=== PATIENT | female | born 1930 | race Caucasian/White ===

== ENCOUNTER 2017-12-27 05:08 | Emergency (ER) | payer OTHER ==
[2017-12-27 08:04] LABS: Absolute Lymphocytes (CBC) 0.6 K/uL (0.7-4.9); Absolute Neutrophil 9.9 K/uL (1.8-8.0); Basophils % 0.2 % (0-1.3); Hematocrit 38.8 % (36.0-45.0); Lymphocytes % 5.5 % (15.3-44.8); MCH 32.5 pg (27.0-35.0); MCV 96.1 fL (80-100); MPV 8.9 fL (7.6-11.3); Monocytes % 8.8 % (3.3-12.3); RBC Red Blood Cell Count 4.04 M/uL (3.86-4.86)
[2017-12-27 08:09] LABS: Potassium 3.5 mEq/L (3.6-5.0)
[2017-12-27 08:15] LABS: Albumin 4.1 g/dL (3.2-5.5); Bilirubin Direct 0.1 mg/dL (0-0.2); Bilirubin Total 0.9 mg/dL (0.3-1.2); Protein, Total 6.7 g/dL (6.0-8.3)
[2017-12-27 08:16] LABS: CKMB Creatine Kinase MB 2.9 ng/ml (0.3-4.0)
[2017-12-27 08:22] LABS: Protime INR 1.01
[2017-12-27 08:33] LABS: Urine Bacteria NONE SEEN /HPF (<20); Urine Culture Reflex Order NOT NEEDED; Urine RBC NONE SEEN /HPF (NONE SEEN)
[2017-12-27] MEDS ORDERED: CEFTRIAXONE/SWI 1gm 1 GM/10 ML SYR ONE (08:41)
[2017-12-27] MEDS ORDERED: AZITHROMYCIN 250 MG TAB ONE (08:42)
--- NOTE | 2017-12-27 09:01 | RAD REPORT ---
EXAM DESCRIPTION: Nida Single View12/27/2017 7:35 am CLINICAL HISTORY: Chest pain COMPARISON: 2016 FINDINGS: 7 centimeter opacity is present within the mid to lower right lung. Left lung appears yamila r. The heart is mildly enlarged. IMPRESSION: Right lung opacity consistent with pneumonia. This should be followed until it is clear to help exclude a post obstructive process/underlying mass
--- NOTE | 2017-12-27 09:15 | EDPHYS ---
Physician Documentation [facility] Name: Danica Murdock Age: 87 yrs Sex: Female : 1930 Arrival Date: 12/27/2017 Time: 05:14 Bed 5 Private MD: Ken Davis ED Physician Shawn Peraza HPI: 12/27 06:50 This 87 yrs old Female presents to ER via Wheelchair with complaints of cp Fever, CHILLS. 06:50 The patient reports fever, not measured (subjective). Onset: The symptoms/episode cp began/occurred this morning. Associated signs and symptoms: Pertinent positives: cough, body aches, Pertinent negatives: diarrhea, headache, runny nose, vomiting. Severity of symptoms: in the emergency department the symptoms are unchanged despite home interventions. Historical: - Allergies: 05:54 Beta-Blockers (Beta-Adrenergic Blocking Agts); mg2 05:54 Latex, Natural Rubber; mg2 05:54 Clonidine; mg2 05:54 Levaquin; mg2 05:54 Plavix; mg2 05:54 Demerol; mg2 - Home Meds: 05:54 hydrochlorothiazide 50 mg Oral tab 1 tab 2 times per day [Active]; mg2 - PMHx: 05:54 heart attack; Irregular Hear Rate; stroke; Hypothyroidism; ADD/ADHD; mg2 - Immunization history:: Adult Immunizations unknown, Flu vaccine is not up to date. - Social history:: Smoking status: Patient/guardian denies using tobacco, Patient/guardian denies using alcohol, street drugs. - Ebola Screening: : No symptoms or risks identified at this time. ROS: 07:00 Constitutional: Positive for body aches, chills, malaise, Negative for fever, poor PO cp intake. 07:00 Eyes: Negative for injury, pain, redness, and discharge. cp 07:00 ENT: Negative for drainage from ear(s), ear pain, sore throat, difficulty swallowing, difficulty handling secretions. 07:00 Neck: Negative for pain with movement, pain at rest, stiffness, swollen nodes, tenderness. 07:00 Cardiovascular: Negative for chest pain, edema, palpitations. 07:00 Respiratory: Positive for cough, with yellow sputum, Negative for hemoptysis, wheezing. 07:00 Abdomen/GI: Negative for abdominal pain, vomiting, diarrhea, constipation. 07:00 Back: Negative for injury or acute deformity, radiated pain. 07:00 : Negative for urinary symptoms. 07:00 Skin: Negative for cellulitis, rash. 07:00 Neuro: Positive for general weakness, Negative for altered mental status, headache, syncope, near syncope. 07:00 All other systems are negative. Exam: 07:02 Head/Face: Normocephalic, atraumatic. Eyes: Pupils equal round and reactive to light, cp extra-ocular motions intact. Lids and lashes normal. Conjunctiva and sclera are non-icteric and not injected. Cornea within normal limits. Periorbital areas with no swelling, redness, or edema. ENT: Nares patent. No nasal discharge, no septal abnormalities noted. Tympanic membranes are normal and external auditory canals are clear. Oropharynx with no redness, swelling, or masses, exudates, or evidence of obstruction, uvula midline. Mucous membranes moist. Neck: Trachea midline, no thyromegaly or masses palpated, and no cervical lymphadenopathy. Supple, full range of motion without nuchal rigidity, or vertebral point tenderness. No Meningismus. Chest/axilla: Normal chest wall appearance and motion. Nontender with no deformity. No lesions are appreciated. 07:02 Constitutional: The patient appears in no acute distress, alert, awake, non-diaphoretic, non-toxic, well developed, frail. 07:02 Cardiovascular: Rate: normal, Rhythm: regular, Pulses: Pulses are 2+ in right radial artery and left radial artery. Edema: is not appreciated, JVD: is not appreciated. 07:02 Respiratory: the patient does not display signs of respiratory distress, Respirations: labored breathing, is not present, intercostal retractions, are absent, splinting, is not noted, tachypnea, is not appreciated, Breath sounds: bronchial sounds, that are mild, are heard in the right posterior middle lobe and right posterior lower lobe, decreased breath sounds, that are mild, are located in both bases, stridor, is not appreciated, wheezing: is not appreciated. 07:02 Abdomen/GI: Inspection: abdomen appears normal, Bowel sounds: active, all quadrants, Palpation: abdomen is soft and non-tender, in all quadrants. 07:02 Back: pain, is absent, ROM is normal, CVA tenderness, is absent. 07:02 Skin: cellulitis, is not appreciated, no rash present. 07:02 Neuro: Orientation: to person, place \T\ time. Mentation: lucid, able to follow commands, Cerebellar function: is grossly normal, Motor: moves all fours, general weakness w/o focal deficits, Sensation: no obvious gross deficits. 07:40 ECG was reviewed by the Attending Physician. cp Vital Signs: 05:54 BP 158 / 84; Pulse 73; Resp 20; Temp 99(O); Pulse Ox 95% ; Weight 56.7 kg; Height 5 ft. mg2 5 in. (165.10 cm); Pain 0/10; 07:00 BP 135 / 72; Pulse 67; Resp 17; Pulse Ox 96% on R/A; hb 08:51 BP 146 / 72; Pulse 75; Resp 18; Pulse Ox 95% ; jl7 05:54 Body Mass Index 20.80 (56.70 kg, 165.10 cm) mg2 MDM: 06:40 Patient medically screened. cp 08:53 Data reviewed: vital signs, nurses notes, lab test result(s), EKG, radiologic studies, cp plain films. Physician consultation: Ale Lynn MD was called at 08:45, was contacted at 08:54, regarding admission, to the telemetry unit. patient's condition, in the emergency department to see patient at 08:54. ED course: VSS. Patient evaluated by DR Lynn who reports patient stable for discharge with immediate outpatient f/u with DR Gallo for chronic a-fib. Wants Zithromax continued as outpatient treatment for pneumonia. 09:08 Physician consultation: Ale Lynn MD was called at 09:08, was contacted at 09:08, cp regarding admission, patient reports general weakness and while ambulating in ED, observed using wall to steady herself. Oxygen sats maintained above 90% while ambulating while on RA. 09:10 ED course: VSS. Dr Lynn recommend outpatient treatment for pneumonia, immediate f/u cp with DR Gallo as planned as patient does not meet inpatient criteria for treatment. 12/27 06:49 Order name: Urine Microscopic Only; Complete Time: 08:37 cp 12/27 06:49 Order name: Basic Metabolic Panel; Complete Time: 08:22 cp 12/27 08:22 Interpretation: Normal except: K 3.5; BUN 27; GFR 81. cp 12/27 06:49 Order name: Blood Culture Adult (2) cp 06/ 06:49 Order name: BNP; Complete Time: 08:22 cp 06/06 08:22 Interpretation: Abnormal: BNP 653. cp 06/ 06:49 Order name: CBC with Diff cp 06/ 08:23 Interpretation: Normal except: WBC 11.6; RUFINA% 85.5; LYM% 5.5; NEUT A 9.9; LYMA 0.6. cp 06/06 06:49 Order name: Ckmb; Complete Time: 08:22 cp 06/ 06:49 Order name: CPK; Complete Time: 08:22 cp 06/ 06:49 Order name: Lactate; Complete Time: 08:22 cp 06/06 06:49 Order name: LFT's; Complete Time: 08:22 cp 06/ 09:07 Interpretation: Normal except: SGOT 46. cp 06/ 06:49 Order name: Procalcitonin; Complete Time: 08:37 cp 06/ 06:49 Order name: Protime (+inr); Complete Time: 08:37 cp 06/ 06:49 Order name: Ptt, Activated; Complete Time: 08:37 cp 06/ 06:49 Order name: Troponin (emerg Dept Use Only); Complete Time: 08:22 cp 06/ 06:49 Order name: Influenza Screen (a \T\ B); Complete Time: 08:22 cp 06/06 06:49 Order name: Cath; Complete Time: 08:55 cp 06/06 06:49 Order name: Chest Single View XRAY; Complete Time: 09:06 cp 06/ 06:49 Order name: Accucheck; Complete Time: 07:26 cp 06/06 06:49 Order name: Cardiac monitoring; Complete Time: 07:44 cp 06/ 06:49 Order name: EKG - Nurse/Tech; Complete Time: 07:44 cp 06/ 06:49 Order name: IV Saline Lock - Large Bore; Complete Time: 07:44 cp / 06:49 Order name: Labs collected and sent; Complete Time: 07:44 cp /06 06:49 Order name: O2 Per Protocol; Complete Time: 07:45 cp / 06:49 Order name: O2 Sat Monitoring; Complete Time: 07:45 cp 06/06 06:49 Order name: Urine Dipstick-Ancillary (obtain specimen); Complete Time: 08:13 cp 12/27 08:07 Order name: CBC Smear Scan EDMT 12/27 08:14 Order name: Urine Dipstick--Ancillary (enter results) em1 12/27 09:13 Order name: EKG Electrocardiogram EDMS EC:40 Rate is 68 beats/min. Rhythm is irregular. QRS interval is prolonged at 110 msec. QT cp interval is normal. Interpreted by me. Reviewed by me. Administered Medications: 08:26 CANCELLED (Physician Discretion): Zithromax 500 mg IVPB once over 1 hrs; mix in 250 mL cp NS 08:48 Drug: Rocephin - (cefTRIAXone) 1 grams Route: IVPB; Infused Over: 30 mins; Site: right jl7 forearm; 08:50 Follow up: Response: No adverse reaction; IV Status: Completed infusion jl 08:48 Drug: Zithromax 500 mg Route: PO; jl7 Point of Care Testing: Blood Glucose: 07:26 Blood Glucose: 104 mg/dL; dh3 Ranges: Critical Glucose Levels:Adult <50 mg/dl or >400 mg/dl <40 mg/dl or >180 mg/dl Disposition: 16:17 Co-signature as Attending Physician, Shawn Peraza MD. rn Disposition: 12/27/17 09:15 Discharged to Home. Impression: Pneumonia due to other specified bacteria, Chronic atrial fibrillation, Weakness - General. - Condition is Stable. - Discharge Instructions: Pneumonia, Adult, Weakness, Aspirin and Your Heart, Atrial Fibrillation, Shvs-gt-Scpa. - Prescriptions for Zithromax Z- Juan 250 mg Oral Tablet - take 1 tablet by ORAL route as directed for 5 days Day 1 - take two (2) tablets one time. Day 2, 3, 4 , 5 take one (1) tablet once daily.; 6 tablet. - Medication Reconciliation Form, Thank You Letter, Antibiotic Education, Prescription Opioid Use form. - Follow up: Oleg Gallo MD; When: Upon discharge from the Emergency Department; Reason: chronic atrial fibrillation. Follow up: Ken Davis MD; When: 1 - 2 days; Reason: pneumonia. - Problem is new. - Symptoms have improved. Signatures: Dispatcher [employer] [facility] Shawn Peraza MD MD rn Smirch, Shelby, RN RN ss Page Prince, PA PA cp Eric Coronado RN RN jl7 Suraj Dyer, RN RN mg2 Corrections: (The following items were deleted from the chart) 08:23 08:22 Normal except: WBC 11.6; RUFINA% 85.5; LYM% 5.5; NEUT A 9.9. cp cp 08:26 08:25 Zithromax 500 mg IVPB once over 1 hrs; mix in 250 mL NS ordered. cp cp 09:42 09:15 12/27/2017 09:15 Discharged to Home. Impression: Pneumonia due to other specified ss bacteria; Chronic atrial fibrillation; Weakness - General. Condition is Stable. Forms are Medication Reconciliation Form, Thank You Letter, Antibiotic Education, Prescription Opioid Use. Follow up: Oleg Gallo; When: Upon discharge from the Emergency Department; Reason: chronic atrial fibrillation. Follow up: Ken Davis; When: 1 - 2 days; Reason: pneumonia. Problem is new. Symptoms have improved. cp
--- NOTE | 2017-12-27 09:15 | ER ---
Nurse's Notes [facility] Name: Danica Murdock Age: 87 yrs Sex: Female : 1930 Arrival Date: 12/27/2017 Time: 05:14 Bed 5 Private MD: Ken Davis Diagnosis: Pneumonia due to other specified bacteria;Chronic atrial fibrillation;Weakness-General Presentation: 12/27 05:50 Presenting complaint: Patient states: chills, cough, shortness of breath and probable mg2 fever upon waking up this morning. denies chest pain. Transition of care: patient was not received from another setting of care. Onset of symptoms was December 27, 2017. Risk Assessment: Do you want to hurt yourself or someone else? Patient reports no desire to harm self or others. Initial Sepsis Screen: Does the patient meet any 2 criteria? No. Patient's initial sepsis screen is negative. Does the patient have a suspected source of infection? No. Patient's initial sepsis screen is negative. Care prior to arrival: None. 05:50 Method Of Arrival: Wheelchair mg2 05:50 Acuity: BRANDIE 3 mg2 Historical: - Allergies: 05:54 Beta-Blockers (Beta-Adrenergic Blocking Agts); mg2 05:54 Latex, Natural Rubber; mg2 05:54 Clonidine; mg2 05:54 Levaquin; mg2 05:54 Plavix; mg2 05:54 Demerol; mg2 - Home Meds: 05:54 hydrochlorothiazide 50 mg Oral tab 1 tab 2 times per day [Active]; mg2 - PMHx: 05:54 heart attack; Irregular Hear Rate; stroke; Hypothyroidism; ADD/ADHD; mg2 - Immunization history:: Adult Immunizations unknown, Flu vaccine is not up to date. - Social history:: Smoking status: Patient/guardian denies using tobacco, Patient/guardian denies using alcohol, street drugs. - Ebola Screening: : No symptoms or risks identified at this time. Screenin:25 Abuse screen: Denies threats or abuse. Denies injuries from another. Nutritional mg2 screening: No deficits noted. Tuberculosis screening: No symptoms or risk factors identified. Fall Risk Gait- Weak (10 pts.). Assessment: 06:20 General: Appears in no apparent distress. comfortable. Pain: Denies pain. Neuro: Level mg2 of Consciousness is awake, alert, obeys commands, Oriented to person, place, time, situation. Cardiovascular: Capillary refill < 3 seconds Patient's skin is warm and dry. Respiratory: Reports shortness of breath cough that is non-productive. GI: No signs and/or symptoms were reported involving the gastrointestinal system. : No signs and/or symptoms were reported regarding the genitourinary system. Derm: Skin is intact, Skin is pink, warm \T\ dry. normal. Musculoskeletal: No signs and/or symptoms reported regarding the musculoskeletal system. 07:15 Reassessment: Patient and/or family updated on plan of care and expected duration. Pain jl7 level reassessed. Patient is alert, oriented x 3, equal unlabored respirations, skin warm/dry/pink. Patient denies pain at this time. Respiratory: Reports shortness of breath since last night cough that is non-productive, Airway is patent Respiratory effort is even, unlabored, Respiratory pattern is regular, symmetrical, Breath sounds are coarse bilaterally. 08:45 Reassessment: Dr. Lynn at bedside. jl7 Vital Signs: 05:54 BP 158 / 84; Pulse 73; Resp 20; Temp 99(O); Pulse Ox 95% ; Weight 56.7 kg; Height 5 ft. mg2 5 in. (165.10 cm); Pain 0/10; 07:00 BP 135 / 72; Pulse 67; Resp 17; Pulse Ox 96% on R/A; hb 08:51 BP 146 / 72; Pulse 75; Resp 18; Pulse Ox 95% ; jl7 05:54 Body Mass Index 20.80 (56.70 kg, 165.10 cm) mg2 ED Course: 05:14 Patient arrived in ED. es 05:14 Ken Davis MD is Private Physician. es 05:50 Suraj Dyer, AISHA is Primary Nurse. mg2 05:52 Triage completed. mg2 05:55 Arm band placed on. mg2 06:40 Prince Tracy PA is PHCP. cp 06:40 William Guan MD is Attending Physician. cp 07:15 Patient has correct armband on for positive identification. Placed in gown. Bed in low jl7 position. Call light in reach. Side rails up X 1. tube machine operator on. Pulse ox on. NIBP on. Warm blanket given. 07:15 Initial lab(s) drawn, by me, sent to lab. First set of blood cultures drawn by me. jl7 Inserted saline lock: 22 gauge in right forearm, using aseptic technique. Blood collected. 07:21 Chest Single View XRAY In Process Unspecified. EDMS 07:30 Shawn Peraza MD is Attending Physician. cp 07:32 Second set of blood cultures drawn by me, Flu and/or RSV swab sent to lab. jl7 08:12 Urine collected: straight cath specimen, clear. Straight cath inserted, using sterile jl7 technique, 16 Fr. Specimen obtained. Returned clear yellow urine. Patient tolerated well. 08:13 Primary Nurse role handed off by Suraj Dyer RN jl7 08:13 Eric Coronado, AISHA is Primary Nurse. jl7 09:13 Oleg Gallo MD is Referral Physician. cp 09:13 EKG done, by medical laboratory technicians. reviewed by Prince CROW. tc 09:14 Ken Davis MD is Referral Physician. cp 09:42 No provider procedures requiring assistance completed. IV discontinued, intact, jl7 bleeding controlled, No redness/swelling at site. Pressure dressing applied. Administered Medications: 08:26 CANCELLED (Physician Discretion): Zithromax 500 mg IVPB once over 1 hrs; mix in 250 mL cp NS 08:48 Drug: Rocephin - (cefTRIAXone) 1 grams Route: IVPB; Infused Over: 30 mins; Site: right jl7 forearm; 08:50 Follow up: Response: No adverse reaction; IV Status: Completed infusion jl7 08:48 Drug: Zithromax 500 mg Route: PO; jl7 Point of Care Testing: Blood Glucose: 07:26 Blood Glucose: 104 mg/dL; dh3 Ranges: Outcome: 09:15 Discharge ordered by . cp 09:42 Patient left the ED. ss 09:42 Discharged to home via wheelchair, with family. jl7 09:42 Condition: stable 09:42 Discharge instructions given to patient, family, Instructed on discharge instructions, follow up and referral plans. medication usage, Demonstrated understanding of instructions, follow-up care, medications, Prescriptions given X 1. Signatures: Dispatcher [employer] [facility] Breann Bell Shelby, RN RN Xuan Turner, vp security EKG Ttc Prince Tracy PA PA cp Anna Maldonado RN RN Eric Coronado RN RN jl7 Christina Mohan dh3 Suraj Dyer, RN RN mg2
[2017-12-27 09:37] LABS: Blood Morphology Comment NOT SEEN (NOT SEEN); Platelet Estimate ADEQ; Urine White Blood Cell Casts OK
[2017-12-27 09:47] VITALS: TEMP 99
[2017-12-27 09:49] VITALS: BP 146/72; O2SAT 95
--- NOTE | 2017-12-27 13:37 | EKG ---
Test Date: 2017-12-27 Test Time: 07:34:48 Powder Shoveler: MARINA MEASUREMENT RESULTS: Intervals: Rate: 68 KS: QRSD: 110 QT: 360 QTc: 382 [place]: P: KS: QRS: 72 T: -64 INTERPRETIVE STATEMENTS: Atrial fibrillation ST & T wave abnormality, consider inferolateral ischemia or digitalis effect Abnormal ECG Compared to ECG 06/27/2016 15:44:03 ST (T wave) deviation now present Possible ischemia now present Electronically Signed On 12-27-17 13:36:25 CDT by Alfonso Durán
[2017-12-27 16:45] LABS: Urine Blood NEGATIVE (NEG); Urine Glucose NEGATIVE (NEG); Urine Protein NEGATIVE (NEG)
== END 2017-12-27 09:42 | disposition home or self-care (01) ==
LOC: ER 05:08
DX: J15.8 Pneumonia due to other specified bacteria (principal); I48.2 Chronic atrial fibrillation; E03.9 Hypothyroidism, unspecified; Z86.73 Personal history of transient ischemic attack (TIA), and cerebral infarction without residual deficits; Z88.1 Allergy status to other antibiotic agents; Z88.5 Allergy status to narcotic agent; Z88.8 Allergy status to other drugs, medicaments and biological substances; Z91.040 Latex allergy status
CPT/HCPCS: 36415; 51702; 71045; 80048; 80076; 82550; 82553; 82962; 83605; 83880; 84145; 84484; 85025; 85610; 85730; 87040 ×2; 87804 ×2; 93005; 96374; 99285; J0696; 81003; 81015

== ENCOUNTER 2020-05-14 12:36 | Emergency (ER) | payer OTHER ==
[2020-05-14] MEDS ORDERED: TRAMADOL HCL 50 MG TAB ONE (14:11)
--- OUTSIDE RECORDS SUMMARY | 2020-05-14 14:17 | XMS REPORT | Clinical Summary ---
:1930 Author Organization [facility] Address [address] [place] [address] Care Team Providers Name Role Phone Pcp Primary Care Provider Unavailable Allergies Active Allergy Reactions Severity Noted Date Comments Clonidine Other (See Comments) Medium 04/02/2019 Blister ed rash, racing heart, increased BP Latex Other (See Comments) Low 04/02/2019 Allergy skin test Levofloxacin Other (See Comments) High 04/02/2019 Severe headache, stomach ache, nausea Clopidogrel Nausea Only High 04/02/2019 Irregular heart beat, nausea, tingling Medications Medication Sig Dispensed Refills Start Date End Date Status apixaban (ELIQUIS) 2.5 1 tablet (2.5 0 04/09/2019 Active mg Tab tablet mg total) by Feeding Tube route 2 (two) times daily. acetaminophen 2 tablets (650 30 tablet 0 04/09/2019 04/03/2020 (TYLENOL) 325 MG mg total) by tablet G-tube route every 6 (six) hours as needed for Pain for up to 360 days. lisinopril 1 tablet (20 mg 0 04/10/2019 04/09/2020 E xpired (PRINIVIL,ZESTRIL) 20 total) by MG tablet G-tube route daily. aspirin 81 MG chewable 1 tablet (81 mg 0 04/10/2019 04/09/2020 tablet total) by G-tube route daily. atorvastatin (LIPITOR) 1 tablet (80 mg 0 04/09/2019 04/08/2020 80 MG tablet total) by G-tube route nightly. senna-docusate 1 tablet by 0 04/09/2019 04/08/2020 E xpired (SENOKOT S) 8.6-50 mg G-tube route 2 per tablet (two) times daily as needed for Constipation. metoprolol (LOPRESSOR) Take 0.5 0 04/09/20192019 25 MG tablet tablets (12.5 mg total) by mouth 2 (two) times daily. Active Problems Problem Noted Date Chronic atrial fibrillation 04/09/2019 Essential hypertension 04/09/2019 Chronic systolic heart failure 04/09/2019 Altered mental status, unspecified altered mental stat us type 04/02/2019 Arterial ischemic stroke, MCA (middle cerebral artery) , right, acute 04/01/2019 Social History Tobacco Use Types Packs/Day Years Used Date Never Smoker Smokeless Tobacco: Never Used Sex Assigned at Date Recorded Not on file Last Filed Vital Signs Not on file Plan of Treatment Not on file Results Not on fileafter 05/14/2019 Insurance Payer Benefit Plan / Subscriber ID Effective Dates Phone Addre ss Type Group MEDICARE MEDICARE A B [id number] 1996-Present Medicare [facility] GENERIC MEDICARE [id number] 2018-Present Medigap SUPPLEMENT/RORY SUPPLEMENT VIDUAL (Home) [address] [place] [id number] Advance Directives For more information, please contact: [phone] Code Status Date Activated Date Inactivated Comments Full Code 04/02/2019 1:31 AM 04/09/2019 8:04 PM This code status was determined by: Patient
--- OUTSIDE RECORDS SUMMARY | 2020-05-14 14:19 | XMS REPORT | Continuity of Care Document ---
:1930 Author Organization [facility] t Address [address] [place] [address] Dr. Del[address]. [address] [place] [address] Care Team Providers Name Role Phone Pcp Primary Care Physician Unavailable Nichole LEONARD Attending Clinician Gilberto Mortensen MD Attending Clinician Thais REBOLLEDO S Attending Clinician Flo REBOLLEDO Attending Clinician Doctor Unassigned, Name Attending Clinician Unavailable Rosalino LEONARD Attending Clinician ALEXX HENRY Attending Clinician Unavailable Flo REBOLLEDO Admitting Clinician LAURENCE AGUILLON Admitting Clinician Unavail able Problems Condition Condition Condition Status Onset Resolution Last Treating Co mments Source Name Details Category Date Date Treatment Clinician Date Chronic Chronic Disease Active [facility]- [facility]ati fibrillati [facility]:00: Me dical on on 00 Center Essential Essential Disease Active 2019- [facility] hypertensi hypertensi 04-09 Caren kes - on on 00:00: Medical 00 Center 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, stroke, 00:00: Medical MCA MCA 00 Center (middle (middle cerebral cerebral artery), artery), right, right, acute acute Allergies, Adverse Reactions, Alerts Allergy Allergy Status Severity Reaction(s) Onset Inactive Treating Comm ents Source Name Type Date Date Clinician Clonidin Drug Active Other (See Blistered [facility] e Allergy Comments) 9- rash, [facility] - 00:00: racing Medical 00 heart, Center increased BP Latex Propensi Active Other (See Allergy [facility] ty to Comments) 9- skin test [facility] - adverse 00:00: Medical reaction 00 Center s Levoflox Propensi Active Other (See Severe [facility] acin ty to Comments) 9- headache, [facility] - adverse 00:00: stomach Medical reaction 00 ache, Center s nausea Clopidog Propensi Active Nausea Only Irregula r [facility] rel ty to 04-02 heart [facility] - adverse 00:00: beat, Medical reaction 00 nausea, [facility] s tingling Social History Social Habit Start Date Stop Date Quantity Comments Source Sex Assigned At [facility] Tobacco use and 2019-04-08 2019-04-08 Never used [facility] - exposure 00:00:00 00:00:00 [facility] Smoking Status Start Date Stop Date Source Never smoker [facility] Medications Ordered Filled Start Stop Current Ordering Indication Dosage Frequency Signature Comments Components Source Medication Medication Date Date Medication? Clinician (SIG) Name Name lisinopril 2020- No 20mg QD [address] (PRINIVIL,Z 04-10 (20 mg [facility] - ESTRIL) 20 00:00: 23:59 total) by M edical MG tablet 00 :00 [facility]-tube Center route daily. aspirin 81 2020- No 81mg QD [address] MG chewable 04-10 (81 mg [facility] - tablet 00:00: 23:59 total) by Medic al 00 :00 [facility]-tube Center route daily. apixaban Yes 2.5mg Q.5D [address] [facility] (ELIQUIS) 04-09 (2.5 mg [facility] - 2.5 mg Tab 00:00: total) by Me dical tablet 00 [facility] Tube route 2 (two) times daily. atorvastati 2019- No 80mg QD [address] n (LIPITOR) 04-09 (80 mg [facility] - 80 MG 00:00: 23:59 total) by Medica l tablet 00 :00 G-tube Center route nightly. senna-docus 2019- No 1{tbl} [address] [facility] ate 04-09 by G-tube [facility] - (SENOKOT S) 00:00: 23:59 route 2 Me dical 8.6-50 mg 00 :00 (two) Center per tablet times daily as needed for Constipati on. metoprolol 2019- No 12.5mg Q.5D Take 0.[address] [facility] (LOPRESSOR) 04-09 tablets [facility] - 25 MG 00:00: 23:59 (12.5 mg Medical tablet 00 :00 total) by Center mouth 2 (two) times daily. acetaminoph 2019- No 650mg [address] [facility] en 04-09 (650 mg [facility] - (TYLENOL) 00:00: 23:59 total) by Me dical 325 MG 00 :00 G-tube Center tablet route every 6 (six) hours as needed for Pain for up to 360 days. Procedures This patient has no known procedures. Encounters Start End Encounter Admission Attending Care Care Encounter Source Date/Time Date/Time Type Type Clinicians Facility Department ID 2020-05-13 2020-05-13 Transition Prem Varela 1.2.840.114 [id number] 00:00:00 00:00:00 of Care Sylvia Olivera [id number] Becki 4.2.7.2.686 [id number] 2020-05-13 2020-05-13 Telephone MICHAEL Mortensen 1.2.840.114 [id number] 00:00:00 00:00:00 [facility] [id number] Gilberto Banuelos 4.2.7.2.686 Professio [phone] [place] [address] [address] 2020-05-12 2020-05-12 [facility] 1.2.840.114 [id number] 00:00:00 00:00:00 [facility] [id number] Edward Sherburn 4.2.7.2.686 Professio [phone] [place] [address] [address] 2020-05-10 2020-05-11 [facility] 1.2.840. 114 [id number] 20:20:00 13:27:00 Encounter Katy Rossi Sherburn [id number] Early 4.2.7.2.686 [place] [id number] 2020-05-04 2020-05-04 [facility] 1.2.840.114 [id number] 00:00:00 00:00:00 [facility] 350.1.13.10 Edward Sherburn 4.2.7.2.686 Professio [phone] [place] [address] [address] [facility] 2020-05-01 2020-05-01 [facility] 1.2.840.114 [id number] 00:00:00 00:00:00 [facility] 350.1.13.10 Edward Sherburn 4.2.7.2.686 Professio [phone] [place] [address] [address] [facility] 2020-04-30 2020-04-30 [facility] 1.2.840.114 [id number] 00:00:00 00:00:00 [facility] 350.1.13.10 Edward Sherburn 4.2.7.2.686 Professio [phone] [place] [address] [address] [facility] 2020-04-24 2020-04-24 [facility] 1.2.840.114 [id number] 00:00:00 00:00:00 [facility] 350.1.13.10 Edward Sherburn 4.2.7.2.686 Professio [phone] [place] [address] [address] [facility] 2020-04-24 2020-04-24 [facility] 1.2.840.114 [id number] 00:00:00 00:00:00 [facility] 350.1.13.10 Edward Sherburn 4.2.7.2.686 Professio [phone] [place] [address] [address] One 2020-04-07 2020-04-07 Orders Doctor FRANCISCO 1.2.840.114 [id number] 00:00:00 00:00:00 Only Unassigned, YAQUELIN 350.1.13.10 [facility] 4.2.7.2.686 [id number] 2020-03-25 2020-03-25 Telephone [facility] 1.2.840.114 [id number] 00:00:00 00:00:00 [facility] 350.1.13.10 Edward Sherburn 4.2.7.2.686 Professio [phone] [place] [address] Office [address] One 2020-03-25 2020-03-25 Orders Doctor FRANCISCO 1.2.840.114 [id number] 00:00:00 00:00:00 Only Unassigned, YAQUELIN 350.1.13.10 [facility] 4.2.7.2.686 [id number] [id number] 2020-03-12 2020-03-12 Orders Doctor FRANCISCO 1.2.840.114 [id number] 00:00:00 00:00:00 Only Unassigned, YAQUELIN 350.1.13.10 [facility] 4.2.7.2.686 [id number] [id number] 2020-03-09 2020-03-09 Telephone [facility] 1.2.840.114 [id number] 00:00:00 00:00:00 [facility] 350.1.13.10 Edward Sherburn 4.2.7.2.686 Professio [phone] [place] [address] [address] [facility] 2020-02-28 2020-02-28 [facility] 1.2.840.114 [id number] 00:00:00 00:00:00 [facility] 350.1.13.10 Edward Sherburn 4.2.7.2.686 Professio [phone] [place] [address] [address] [facility] 2020-02-21 2020-02-21 [facility] 1.2.840.114 [id number] 00:00:00 00:00:00 [facility] 350.1.13.10 Edward Sherburn 4.2.7.2.686 Professio [phone] [place] [address] Office [facility] 2020-02-07 2020-02-07 [facility] 1.2.840.114 [id number] 00:00:00 00:00:00 [facility] 350.1.13.10 Edward Sherburn 4.2.7.2.686 Professio [phone] [place] [address] Office [facility] 2020-01-24 2020-01-24 [facility] 1.2.840.114 [id number] 00:00:00 00:00:00 [facility] 350.1.13.10 Edward Sherburn 4.2.7.2.686 Professio [phone] [place] [address] Office [facility] 2020-01-14 2020-01-14 Orders Doctor SINGH 1.2.840.114 [id number] 00:00:00 00:00:00 Only Unassigned, YAQUELIN 350.1.13.10 [facility] 4.2.7.2.686 [id number] [id number] 2020-01-03 2020-01-03 Orders Doctor SINGH 1.2.840.114 [id number] 00:00:00 00:00:00 Only Unassigned, YAQUELIN 350.1.13.10 [facility] 4.2.7.2.686 [id number] [id number] 2019-12-30 2019-12-30 [facility] 1.2.840.114 [id number] 00:00:00 00:00:00 Maksim Banuelos 350.1.13.10 Edward [place] 4.2.7.2.686 Professio [phone] [address] 2019-12-25 2019-12-25 Orders Doctor SINGH 1.2.840.114 [id number] 00:00:00 00:00:00 Only Unassigned, YAQUELIN 350.1.13.10 [facility] 4.2.7.2.686 [id number] [id number] 2019-12-13 2019-12-13 Orders Doctor FRANCISCO 1.2.840.114 [id number] 00:00:00 00:00:00 Only Unassigned, YAQUELIN 350.1.13.10 [facility] 4.2.7.2.686 [id number] [id number] 2019-12-10 2019-12-10 [facility] 1.2.840.114 [id number] 07:34:32 07:49:32 ne Visit Maksim Sherburn 350.1.13.10 [place] 4.2.7.2.686 Professio [phone] [address] 2019-12-06 2019-12-06 Telephone [facility] 1.2.840.114 [id number] 00:00:00 00:00:00 [facility] 350.1.13.10 Edward Sherburn 4.2.7.2.686 Professio [phone] [place] [address] Office [facility] 2019-11-29 2019-11-29 [facility] 1.2.840.114 [id number] 08:06:27 08:21:27 ne Visit Maksim Sherburn 350.1.13.10 [facility] [place] 4.2.7.2.686 Professio [phone] [address] 2019-11-26 2019-11-26 Orders Doctor FRANCISCO 1.2.840.114 [id number] 00:00:00 00:00:00 Only Unassigned, YAQUELIN 350.1.13.10 [facility] 4.2.7.2.686 [id number] [id number] 2019-11-21 2019-11-21 [facility] 1.2.840.114 [id number] 00:00:00 00:00:00 [facility] 350.1.13.10 Edward Sherburn 4.2.7.2.686 Professio [phone] [place] [address] Office Building [facility] 2019-11-20 2019-11-20 [facility] 1.2.840.114 [id number] 08:03:27 08:33:27 ne Visit Maksim Banuelos 350.1.13.10 [place] 4.2.7.2.686 Professio [phone] [address] 2019-11-20 2019-11-20 Telephone [facility] 1.2.840.114 [id number] 00:00:00 00:00:00 [facility] 350.1.13.10 Edneisha [place] 4.2.7.2.686 Professio [phone] [place] [address] Office [facility] 2019-11-14 2019-11-14 Telephone [facility] 1.2.840.114 [id number] 00:00:00 00:00:00 Maksim Banuelos 350.1.13.10 Edsalina Early 4.2.7.2.686 Professio [phone] [address] 2019-11-13 2019-11-13 [facility] 1.2.840.114 [id number] 08:22:08 08:37:08 ne Visit Maksim Banuelos 350.1.13.10 Edsalina Early 4.2.7.2.686 Professio [phone] [address] 2019-11-13 2019-11-13 [facility] 1.2.840.114 [id number] 00:00:00 00:00:00 Maksim Banuelos 350.1.13.10 Edsalina Early 4.2.7.2.686 Professio [phone] [address] 2019-11-13 2019-11-13 Orders Doctor FRANCISCO 1.2.840.114 [id number] 00:00:00 00:00:00 Only Unassigned, YAQUELIN 350.1.13.10 [place] [facility] 4.2.7.2.686 [id number] [id number] 2019-11-07 2019-11-07 [facility] 1.2.840.114 [id number] 00:00:00 00:00:00 Maksim Katie 350.1.13.10 Edneisha [place] 4.2.7.2.686 Professio [phone] [address] 2019-11-06 2019-11-06 [facility] 1.2.840.114 [id number] 07:03:37 07:18:37 ne Visit Maksim Banuelos 350.1.13.10 Edward [place] 4.2.7.2.686 Professio [phone] [address] 2019-11-04 2019-11-04 [facility] 1.2.840.114 [id number] 00:00:00 00:00:00 [facility] 350.1.13.10 Edward Sherburn 4.2.7.2.686 Professio [phone] [place] [address] Office [facility] 2019-11-01 2019-11-01 [facility] 1.2.840.114 [id number] 00:00:00 00:00:00 Maksim Banuelos 350.1.13.10 Edward Early 4.2.7.2.686 Professio [phone] [address] 2019-10-31 2019-10-31 Orders Doctor FRANCISCO 1.2.840.114 [id number] 00:00:00 00:00:00 Only Unassigned, YAQUELIN 350.1.13.10 [place] [facility] 4.2.7.2.686 [id number] [id number] 2019-10-30 2019-10-30 [facility] 1.2.840.114 [id number] 07:41:26 08:21:26 ne Visit Maksim Banuelos 350.1.13.10 Edsalina Early 4.2.7.2.686 Professio [phone] [address] 2019-10-28 2019-10-28 [facility] 1.2.840.114 [id number] 00:00:00 00:00:00 [facility] 350.1.13.10 Edward Sherburn 4.2.7.2.686 Professio [phone] [address] 2019-10-28 2019-10-28 [facility] 1.2.840.114 [id number] 00:00:00 00:00:00 [facility] 350.1.13.10 Edneisha Sherburn 4.2.7.2.686 Professio [phone] [place] [address] Office [facility] 2019-10-25 2019-10-25 [facility] 1.2.840.114 [id number] 00:00:00 00:00:00 [facility] 350.1.13.10 Gilberto Banuelos 4.2.7.2.686 Professio [phone] [place] [address] 2019-10-21 2019-10-21 Transition Prem Jerry 1.2.840.114 [id number] 00:00:00 00:00:00 of Care Ankita Olivera 350.1.13.10 Becki 4.2.7.2.686 [id number] Results Test Description Test Time Test Comments Results Result [facility] e Comments TISSUE EXAM 2019-04-15 Surgical Pathology Report 14:48:00 Case: [id number] Authorizing Provider: Sunil Guadarrama MD Collected: 04/06/2019 1558 Ordering Location: [address] Received: 04/08/2019 0815 Service Pathologist: Janessa Pandey MD Specimen: Stomach, Random gastric body/antrum A. 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 Immunostain for chromogranin does not show evidence of neuroendocrine hyperplasia. No features of autoimmune gastritis are seen.[id number] 41Dysphagia Random gastric body/antrumReceived in formalin labeled with the patient's name, accession number and "stomach" are four irregular rutherford soft tissue fragments ranging 0.2-0.4 cm, which are submitted in toto in A1. CG/ew The interpretation of this case included the use of immunohistochemistry or special stains.Control Slides Examined: In-house known positive controls were evaluated along with the test tissue. These control slides run alongside of the patients sample show appropriate staining. Internal positive and negative controls when available are evaluated Immunohistochemistry technical testing was performed at [facility], Pathology Laboratory where it was developed and its performance characteristics were determined. It has not been cleared or approved by the U.S. Food and Drug Administration. The FDA has determined that such clearance or approval is not necessary. The test is used for clinical purposes. It should not be regarded as investigational or for research. This laboratory is certified under the Clinical Laboratory Improvement Amendments of 1988 (CLIA-88) as qualified to perform high complexity clinical laboratory testing. BLOOD CULTURE 2019-04-13 20:01:00 Test Item Value Reference Range Interpretation Comme nts CULTURE (BEAKER) (test code = 1095) No growth in 5 days BLOOD [id number] 12:01:00 Test Item Value Reference Range Interpretation Comments CULTURE (BEAKER) (test No growth in 5 days code = 1095) CBC W/PLT COUNT & AUTO [id number] 13:08:00 Test Item Value Reference Range Interpretation Comments WHITE BLOOD CELL COUNT (BEAKER) 15.7 K/ L 3.5-10.5 H (test code = 775) RED BLOOD CELL COUNT (BEAKER) 3.49 M/ L 3.93-5.22 L (test code = 761) HEMOGLOBIN (BEAKER) (test code = 11.3 GM/DL 11.2-15.7 410) HEMATOCRIT (BEAKER) (test code = 33.8 % 34.1-44.9 L 411) MEAN CORPUSCULAR VOLUME (BEAKER) 96.8 fL 79.4-94.8 H (test code = 753) MEAN CORPUSCULAR HEMOGLOBIN 32.4 pg 25.6-32.2 H (BEAKER) (test code = 751) MEAN CORPUSCULAR HEMOGLOBIN CONC 33.4 GM/DL 32.2-35.5 (BEAKER) (test code = 752) RED CELL DISTRIBUTION WIDTH 13.4 % 11.7-14.4 (BEAKER) (test code = 412) PLATELET COUNT (BEAKER) (test 266 K/CU MM 150-450 code = 756) MEAN PLATELET VOLUME (BEAKER) 10.6 fL 9.4-12.3 (test code = 754) NUCLEATED RED BLOOD CELLS 0 /100 WBC 0-0 (BEAKER) (test code = 413) (CELLAVISION MANUAL DIFF)2019-04-09 13:08:00 Test Item Value Reference Range Interpretation Comments NEUTROPHILS - REL 79 % (CELLAVISION)(BEAKER) (test code = 2816) LYMPHOCYTES - REL 7 % (CELLAVISION)(BEAKER) (test code = 2817) MONOCYTES - REL 11 % (CELLAVISION)(BEAKER) (test code = 2818) METAMYELOCYTES - REL 2 % 0-0 H (CELLAVISION)(BEAKER) (test code = 2821) MYELOCYTES - REL 1 % 0-0 H (CELLAVISION)(BEAKER) (test code = 2822) NEUTROPHILS - ABS 12.40 K/ul 1.56-6.13 H (CELLAVISION)(BEAKER) (test code = 2830) LYMPHOCYTES - ABS 1.10 K/ul 1.18-3.74 L (CELLAVISION)(BEAKER) (test code = 2831) MONOCYTES - ABS 1.73 K/uL 0.24-0.36 H (CELLAVISION)(BEAKER) (test code = 2832) METAMYELOCYTES - ABS 0.31 K/uL 0.00-0.00 H (CELLAVISION)(BEAKER) (test code = 2836) MYELOCYTES-ABS 0.16 K/uL 0.00-0.00 H (CELLAVISION)(BEAKER) (test code = 2837) TOTAL COUNTED (BEAKER) (test code 100 = 1351) WBC MORPHOLOGY (BEAKER) (test code Normal = 487) GIANT PLATELETS (BEAKER) (test Present code = 313) LARGE PLT(BEAKER) (test code = Present 2156) POLYCHROMATOPHILLIC RBCS(BEAKER) 1+ few (test code = 478) ANISOCYTOSIS (BEAKER) (test code = 1+ few 961) POIKILOCYTES (BEAKER) (test code = 1+ few 966) SPHEROCYTES (BEAKER) (test code = 1+ few 768) ELLIPTOCYTES (BEAKER) (test code = 1+ few 962) OVALOCYTES (BEAKER) (test code = 1+ few 477) BANDAR CELLS (BEAKER) (test code = 1+ few 474) BASOPHILIC STIPPLING (BEAKER) Present (test code = 473) ARTIFACT (CELLAVISION)(BEAKER) Present (test code = 3432) HELMET CELLS (CELLAVISION)(BEAKER) 1+ few (test code = 3434) PLATELET CONCENTRATION Adequate (CELLAVISION)(BEAKER) (test code = 3438) Received comment: User comments: Slide comments:POCT-GLUCOSE [id number] 11:57:00 Test Item Value Reference Range Interpretation Comments POC-GLUCOSE METER 163 mg/dL 70-110 H TESTED AT [facility] 67[address] (BEAKER) (test code = [place] 1538) [address] POCT-GLUCOSE [id number] 06:11:00 Test Item Value Reference Range Interpretation Comments POC-GLUCOSE METER 185 mg/dL 70-110 H TESTED AT [facility] 67[address] (BEAKER) (test code = JEANNIE [place] 1538) [address] [id number] 05:56:00 Test Item Value Reference Range Interpretation Comments MAGNESIUM (BEAKER) (test code = 1.8 mg/dL 1.6-2.6 627) BASIC METABOLIC [id number] 05:56:00 Test Item Value Reference Range Interpretation Comments SODIUM (BEAKER) 140 meq/L 136-145 (test code = 381) POTASSIUM (BEAKER) 3.4 meq/L 3.5-5.1 L (test code = 379) CHLORIDE (BEAKER) 106 meq/L 98-107 (test code = 382) CO2 (BEAKER) (test 25 meq/L 22-29 code = 355) BLOOD UREA NITROGEN 27 mg/dL 7-21 H (BEAKER) (test code = 354) CREATININE (BEAKER) 0.60 mg/dL 0.57-1.25 (test code = 358) GLUCOSE RANDOM 138 mg/dL 70-105 H (BEAKER) (test code = 652) CALCIUM (BEAKER) 8.7 mg/dL 8.4-10.2 (test code = 697) EGFR (BEAKER) (test 95 mL/min/1.73 ESTIMA KIRA GFR IS code = 1092) sq m NOT ACCURATE CREATININE CLEARANCE IN PREDICTING GLOMERULAR FILTRATION RATE . ESTIMATED GFR I S NOT APPLICABLE FOR DIALYSIS PATIEN TS. POCT-GLUCOSE [id number] 17:47:00 Test Item Value Reference Range Interpretation Comments POC-GLUCOSE METER 169 mg/dL 70-110 H TESTED AT [facility] 67[address] (BEAKER) (test code = JEANNIE [place] 1538) [id number] 15:30:00 Test Item Value Reference Range Interpretation Comments PROCALCITONIN (BEAKER) (test code 0.64 ng/mL <0.05 H = 3036) SEPSIS RISK (ng/mL)Low: 0.05-0.50Intermediate: 0.51-2.00High: >=2.01POCT-GLUCOSE [id number] 13:00:00 Test Item Value Reference Range Interpretation Comments POC-GLUCOSE METER 172 mg/dL 70-110 H TESTED AT [place] [address] ([facility]) (test code = JEANN[place] 1538) [address] CBC W/PLT COUNT & AUTO [id number] 08:17:00 Test Item Value Reference Range Interpretation Comments WHITE BLOOD CELL COUNT (BEAKER) 13.8 K/ L 3.5-10.5 H (test code = 775) RED BLOOD CELL COUNT (BEAKER) 3.51 M/ L 3.93-5.22 L (test code = 761) HEMOGLOBIN (BEAKER) (test code = 11.6 GM/DL 11.2-15.7 410) HEMATOCRIT (BEAKER) (test code = 33.9 % 34.1-44.9 L 411) MEAN CORPUSCULAR VOLUME (BEAKER) 96.6 fL 79.4-94.8 H (test code = 753) MEAN CORPUSCULAR HEMOGLOBIN 33.0 pg 25.6-32.2 H (BEAKER) (test code = 751) MEAN CORPUSCULAR HEMOGLOBIN CONC 34.2 GM/DL 32.2-35.5 (BEAKER) (test code = 752) RED CELL DISTRIBUTION WIDTH 13.5 % 11.7-14.4 (BEAKER) (test code = 412) PLATELET COUNT (BEAKER) (test 264 K/CU MM 150-450 code = 756) MEAN PLATELET VOLUME (BEAKER) 10.3 fL 9.4-12.3 (test code = 754) NUCLEATED RED BLOOD CELLS 0 /100 WBC 0-0 (BEAKER) (test code = 413) (CELLAVISION MANUAL DIFF)2019-04-08 08:17:00 Test Item Value Reference Range Interpretation Comments NEUTROPHILS - REL 84 % (CELLAVISION)(BEAKER) (test code = 2816) LYMPHOCYTES - REL 8 % (CELLAVISION)(BEAKER) (test code = 2817) MONOCYTES - REL 7 % (CELLAVISION)(BEAKER) (test code = 2818) BANDS - REL (CELLAVISION)(BEAKER) 1 % 0-10 (test code = 2826) NEUTROPHILS - ABS 11.59 K/ul 1.56-6.13 H (CELLAVISION)(BEAKER) (test code = 2830) LYMPHOCYTES - ABS 1.10 K/ul 1.18-3.74 L (CELLAVISION)(BEAKER) (test code = 2831) MONOCYTES - ABS 0.97 K/uL 0.24-0.36 H (CELLAVISION)(BEAKER) (test code = 2832) BANDS - ABS (CELLAVISION)(BEAKER) 0.14 K/uL 0.00-0.80 (test code = 2840) TOTAL COUNTED (BEAKER) (test code 100 = 1351) WBC MORPHOLOGY (BEAKER) (test code Normal = 487) PLT MORPHOLOGY (BEAKER) (test code Normal = 486) POLYCHROMATOPHILLIC RBCS(BEAKER) 1+ few (test code = 478) MACROCYTES (BEAKER) (test code = 1+ few 964) ARTIFACT (CELLAVISION)(BEAKER) Present (test code = 3432) PLATELET CONCENTRATION Adequate (CELLAVISION)(BEAKER) (test code = 3438) Received comment: User comments: Slide comments:POCT-GLUCOSE [id number] 06:12:00 Test Item Value Reference Range Interpretation Comments POC-GLUCOSE METER 171 mg/dL 70-110 H TESTED AT [facility] 6720 (BEAKER) (test code = JEANNIE RUI[place] 1538) [address] BASIC METABOLIC [id number] 05:27:00 Test Item Value Reference Range Interpretation Comments SODIUM (BEAKER) 137 meq/L 136-145 (test code = 381) POTASSIUM (BEAKER) 3.1 meq/L 3.5-5.1 L (test code = 379) CHLORIDE (BEAKER) 103 meq/L 98-107 (test code = 382) CO2 (BEAKER) (test 26 meq/L 22-29 code = 355) BLOOD UREA NITROGEN 26 mg/dL 7-21 H (BEAKER) (test code = 354) CREATININE (BEAKER) 0.64 mg/dL 0.57-1.25 (test code = 358) GLUCOSE RANDOM 163 mg/dL 70-105 H (BEAKER) (test code = 652) CALCIUM (BEAKER) 8.5 mg/dL 8.4-10.2 (test code = 697) EGFR (BEAKER) (test 88 mL/min/1.73 ESTIMA KIRA GFR IS code = 1092) sq m NOT ACCURATE CREATININE CLEARANCE IN PREDICTING GLOMERULAR FILTRATION RATE . ESTIMATED GFR I S NOT APPLICABLE FOR DIALYSIS PATIEN TS. POCT-GLUCOSE [id number] 23:29:00 Test Item Value Reference Range Interpretation Comments POC-GLUCOSE METER 152 mg/dL 70-110 H TESTED AT [facility] 6720 (BEAKER) (test code = JEANNIE George [facility] 1538) [id number] BLOOD [id number] 20:01:00 Test Item Value Reference Range Interpretation Comments CULTURE (BEAKER) (test No growth in 5 days code = 1095) BLOOD [id number] 20:01:00 Test Item Value Reference Range Interpretation Comments CULTURE (BEAKER) (test No growth in 5 days code = 1095) POCT-GLUCOSE [id number] 17:06:00 Test Item Value Reference Range Interpretation Comments POC-GLUCOSE METER 145 mg/dL 70-110 H TESTED AT [facility] 6720 (BEAKER) (test code = [facility] Ariel [facility] 1538) [id number] URINALYSIS W/ REFLEX URINE [id number] 14:17:00 Test Item Value Reference Range Interpretation Comments COLOR (BEAKER) (test code = 470) Yellow CLARITY (BEAKER) (test code = 469) Clear SPECIFIC GRAVITY UA (BEAKER) (test 1.021 1.001-1.035 code = 468) PH UA (BEAKER) (test code = 467) 6.5 5.0-8.0 PROTEIN UA (BEAKER) (test code = 20 mg/dL Negative A 464) GLUCOSE UA (BEAKER) (test code = Negative Negative 365) KETONES UA (BEAKER) (test code = Negative Negative 371) BILIRUBIN UA (BEAKER) (test code = Negative Negative 462) BLOOD UA (BEAKER) (test code = 461) Negative Negative NITRITE UA (BEAKER) (test code = Negative Negative 465) LEUKOCYTE ESTERASE UA (BEAKER) Negative Negative (test code = 466) UROBILINOGEN UA (BEAKER) (test code 2.0 mg/dL 0.2-1.0 H = 463) RBC UA (BEAKER) (test code = 519) 2 /HPF WBC UA (BEAKER) (test code = 520) 4 /HPF MUCUS (BEAKER) (test code = 1574) Rare SOURCE(BEAKER) (test code = 2795) POCT-GLUCOSE [id number] 12:20:00 Test Item Value Reference Range Interpretation Comments POC-GLUCOSE METER 108 mg/dL 70-110 TESTED AT [place] [address] ([facility]) (test code = [facility] 1538) [address] RAD, CHEST, 1 VIEW, NON [id number] 09:10:00Reason for exam:->feverShould this be performed at the bedside?->YesFINAL REPORT AP chest, two images HISTORY: Fever. COMPARISON: 04/02/2019. IMPRESSION: Stable cardiac silhouette. Mild interstitial prominence, similar or slightly improved. No pneumothorax. Signed: Eliu Goodman Verified Date/Time: 04/07/2019 09:10:03 Reading Location: [address] Ortho Consult Reading Room D [id number] 20:01:00 Test Item Value Reference Range Interpretation Comments CULTURE (BEAKER) (test No growth in 5 days code = 1095) BLOOD [id number] 20:01:00 Test Item Value Reference Range Interpretation Comments CULTURE (BEAKER) (test No growth in 5 days code = 1095) POCT-GLUCOSE [id number] 12:43:00 Test Item Value Reference Range Interpretation Comments POC-GLUCOSE METER 115 mg/dL 70-110 H TESTED AT [place] [address] ([facility]) (test code = [facility] 1538) [id number] CBC W/PLT COUNT & AUTO [id number] 11:25:00 Test Item Value Reference Range Interpretation Comments WHITE BLOOD CELL COUNT (BEAKER) 14.5 K/ L 3.5-10.5 H (test code = 775) RED BLOOD CELL COUNT (BEAKER) 3.58 M/ L 3.93-5.22 L (test code = 761) HEMOGLOBIN (BEAKER) (test code = 11.7 GM/DL 11.2-15.7 410) HEMATOCRIT (BEAKER) (test code = 34.7 % 34.1-44.9 411) MEAN CORPUSCULAR VOLUME (BEAKER) 96.9 fL 79.4-94.8 H (test code = 753) MEAN CORPUSCULAR HEMOGLOBIN 32.7 pg 25.6-32.2 H (BEAKER) (test code = 751) MEAN CORPUSCULAR HEMOGLOBIN CONC 33.7 GM/DL 32.2-35.5 (BEAKER) (test code = 752) RED CELL DISTRIBUTION WIDTH 13.2 % 11.7-14.4 (BEAKER) (test code = 412) PLATELET COUNT (BEAKER) (test 196 K/CU MM 150-450 code = 756) MEAN PLATELET VOLUME (BEAKER) 11.1 fL 9.4-12.3 (test code = 754) NUCLEATED RED BLOOD CELLS 0 /100 WBC 0-0 (BEAKER) (test code = 413) (CELLAVISION MANUAL DIFF)2019-04-06 11:25:00 Test Item Value Reference Range Interpretation Comments NEUTROPHILS - REL 80 % (CELLAVISION)(BEAKER) (test code = 2816) LYMPHOCYTES - REL 7 % (CELLAVISION)(BEAKER) (test code = 2817) MONOCYTES - REL 13 % (CELLAVISION)(BEAKER) (test code = 2818) NEUTROPHILS - ABS 11.60 K/ul 1.56-6.13 H (CELLAVISION)(BEAKER) (test code = 2830) LYMPHOCYTES - ABS 1.02 K/ul 1.18-3.74 L (CELLAVISION)(BEAKER) (test code = 2831) MONOCYTES - ABS 1.89 K/uL 0.24-0.36 H (CELLAVISION)(BEAKER) (test code = 2832) TOTAL COUNTED (BEAKER) (test code 100 = 1351) RBC MORPHOLOGY (BEAKER) (test code Normal = 762) WBC MORPHOLOGY (BEAKER) (test code Normal = 487) PLT MORPHOLOGY (BEAKER) (test code Normal = 486) ARTIFACT (CELLAVISION)(BEAKER) Present (test code = 3432) PLATELET CONCENTRATION Adequate (CELLAVISION)(BEAKER) (test code = 3438) Received comment: User comments: Slide comments:POCT-GLUCOSE [id number] 06:49:00 Test Item Value Reference Range Interpretation Comments POC-GLUCOSE METER 133 mg/dL 70-110 H TESTED AT [facility] 6720 (BEAKER) (test code = JE[address]IE [place] 1538) [address] BASIC METABOLIC [id number] 06:35:00 Test Item Value Reference Range Interpretation Comments SODIUM (BEAKER) 138 meq/L 136-145 (test code = 381) POTASSIUM (BEAKER) 3.0 meq/L 3.5-5.1 L Specimen slightly (test code = 379) hemolyzed CHLORIDE (BEAKER) 100 meq/L 98-107 (test code = 382) CO2 (BEAKER) (test 29 meq/L 22-29 code = 355) BLOOD UREA NITROGEN 25 mg/dL 7-21 H (BEAKER) (test code = 354) CREATININE (BEAKER) 0.58 mg/dL 0.57-1.25 Specimen slightly (test code = 358) hemolyzed GLUCOSE RANDOM 115 mg/dL 70-105 H (BEAKER) (test code = 652) CALCIUM (BEAKER) 9.2 mg/dL 8.4-10.2 (test code = 697) EGFR (BEAKER) (test 98 mL/min/1.73 ESTIMA KIRA GFR IS code = 1092) sq m NOT ACCURATE CREATININE CLEARANCE IN PREDICTING GLOMERULAR FILTRATION RATE . ESTIMATED GFR I S NOT APPLICABLE FOR DIALYSIS PATIEN TS. POCT-GLUCOSE [id number] 00:10:00 Test Item Value Reference Range Interpretation Comments POC-GLUCOSE METER 138 mg/dL 70-110 H TESTED AT [facility] 6720 (BEAKER) (test code = JE[address]IE [place] 1538) [id number] POCT-GLUCOSE [id number] 12:26:00 Test Item Value Reference Range Interpretation Comments POC-GLUCOSE METER 157 mg/dL 70-110 H TESTED AT [facility] 6720 (BEAKER) (test code = [place] 1538) [address] POCT-GLUCOSE [id number] 06:36:00 Test Item Value Reference Range Interpretation Comments POC-GLUCOSE METER 150 mg/dL 70-110 H TESTED AT [facility] 6720 (BEAKER) (test code = [place] 1538) [address] [id number] 05:28:00 Test Item Value Reference Range Interpretation Comments MAGNESIUM (BEAKER) 1.7 mg/dL 1.6-2.6 Specimen slightly (test code = 627) hemolyzed BASIC METABOLIC [id number] 05:28:00 Test Item Value Reference Range Interpretation Comments SODIUM (BEAKER) 139 meq/L 136-145 (test code = 381) POTASSIUM (BEAKER) 3.3 meq/L 3.5-5.1 L Specimen slightly (test code = 379) hemolyzed CHLORIDE (BEAKER) 104 meq/L 98-107 (test code = 382) CO2 (BEAKER) (test 26 meq/L 22-29 code = 355) BLOOD UREA NITROGEN 27 mg/dL 7-21 H (BEAKER) (test code = 354) CREATININE (BEAKER) 0.61 mg/dL 0.57-1.25 Specimen slightly (test code = 358) hemolyzed GLUCOSE RANDOM 151 mg/dL 70-105 H (BEAKER) (test code = 652) CALCIUM (BEAKER) 8.8 mg/dL 8.4-10.2 (test code = 697) EGFR (BEAKER) (test 93 mL/min/1.73 ESTIMA KIRA GFR IS code = 1092) sq m NOT ACCURATE CREATININE CLEARANCE IN PREDICTING GLOMERULAR FILTRATION RATE . ESTIMATED GFR I S NOT APPLICABLE FOR DIALYSIS PATIEN TS. CBC W/PLT COUNT & AUTO [id number] 05:03:00 Test Item Value Reference Range Interpretation Comments WHITE BLOOD CELL COUNT (BEAKER) 14.0 K/ L 3.5-10.5 H (test code = 775) RED BLOOD CELL COUNT (BEAKER) 3.77 M/ L 3.93-5.22 L (test code = 761) HEMOGLOBIN (BEAKER) (test code = 12.4 GM/DL 11.2-15.7 410) HEMATOCRIT (BEAKER) (test code = 36.2 % 34.1-44.9 411) MEAN CORPUSCULAR VOLUME ([facility]) 96.0 fL 79.4-94.8 H (test code = 753) MEAN CORPUSCULAR HEMOGLOBIN 32.9 pg 25.6-32.2 H (AKER) (test code = 751) MEAN CORPUSCULAR HEMOGLOBIN CONC 34.3 GM/DL 32.2-35.5 (AKER) (test code = 752) RED CELL DISTRIBUTION WIDTH 13.2 % 11.7-14.4 (AKER) (test code = 412) PLATELET COUNT ([facility]) (test 161 K/CU MM 150-450 code = 756) MEAN PLATELET VOLUME ([facility]) 11.2 fL 9.4-12.3 (test code = 754) NUCLEATED RED BLOOD CELLS 0 /100 WBC 0-0 ([facility]) (test code = 413) POCT-GLUCOSE [id number] 00:02:00 Test Item Value Reference Range Interpretation Comments POC-GLUCOSE METER 178 mg/dL 70-110 H TESTED AT [place] [address] ([facility]) (test code = [facility] 1538) [address] POCT-GLUCOSE [id number] 12:39:00 Test Item Value Reference Range Interpretation Comments POC-GLUCOSE METER 172 mg/dL 70-110 H TESTED AT [place] [address] ([facility]) (test code = [facility] 1538) [address] VITAMIN B12 AND [id number] 11:48:00 Test Item Value Reference Range Interpretation Comments VITAMIN B12 ([facility]) (test code = > pg/mL 213-816 H 774) FOLATE ([facility]) (test code = 362) 18.3 ng/mL >=7.0 TSH/FREE T4 IF [id number] 11:11:00 Test Item Value Reference Range Interpretation Comments THYROID STIMULATING HORMONE 2.35 uIU/mL 0.35-4.94 ([facility]) (test code = 772) (CELLAVISION MANUAL DIFF)2019-04-04 10:06:00 Test Item Value Reference Range Interpretation Comments NEUTROPHILS - REL 83 % (CELLAVISION)(BEAKER) (test code = 2816) LYMPHOCYTES - REL 6 % (CELLAVISION)(BEAKER) (test code = 2817) MONOCYTES - REL 11 % (CELLAVISION)(BEAKER) (test code = 2818) NEUTROPHILS - ABS 10.71 K/ul 1.56-6.13 H (CELLAVISION)(BEAKER) (test code = 2830) LYMPHOCYTES - ABS 0.77 K/ul 1.18-3.74 L (CELLAVISION)(BEAKER) (test code = 2831) MONOCYTES - ABS 1.42 K/uL 0.24-0.36 H (CELLAVISION)(BEAKER) (test code = 2832) TOTAL COUNTED (BEAKER) (test code 100 = 1351) RBC MORPHOLOGY (BEAKER) (test code Normal = 762) WBC MORPHOLOGY (BEAKER) (test code Normal = 487) PLT MORPHOLOGY (BEAKER) (test code Normal = 486) CBC W/PLT COUNT & AUTO [id number] 10:06:00 Test Item Value Reference Range Interpretation Comments WHITE BLOOD CELL COUNT (BEAKER) 12.9 K/ L 3.5-10.5 H (test code = 775) RED BLOOD CELL COUNT (BEAKER) 3.81 M/ L 3.93-5.22 L (test code = 761) HEMOGLOBIN (BEAKER) (test code = 12.6 GM/DL 11.2-15.7 410) HEMATOCRIT (BEAKER) (test code = 38.7 % 34.1-44.9 411) MEAN CORPUSCULAR VOLUME (BEAKER) 101.6 fL 79.4-94.8 H (test code = 753) MEAN CORPUSCULAR HEMOGLOBIN 33.1 pg 25.6-32.2 H (BEAKER) (test code = 751) MEAN CORPUSCULAR HEMOGLOBIN CONC 32.6 GM/DL 32.2-35.5 (BEAKER) (test code = 752) RED CELL DISTRIBUTION WIDTH 13.6 % 11.7-14.4 (BEAKER) (test code = 412) PLATELET COUNT (BEAKER) (test 145 K/CU MM 150-450 L code = 756) MEAN PLATELET VOLUME (BEAKER) 10.4 fL 9.4-12.3 (test code = 754) NUCLEATED RED BLOOD CELLS 0 /100 WBC 0-0 (BEAKER) (test code = 413) BASIC METABOLIC [id number] 06:59:00 Test Item Value Reference Range Interpretation Comments SODIUM (BEAKER) 139 meq/L 136-145 (test code = 381) POTASSIUM (BEAKER) 3.0 meq/L 3.5-5.1 L (test code = 379) CHLORIDE (BEAKER) 105 meq/L 98-107 (test code = 382) CO2 (BEAKER) (test 25 meq/L 22-29 code = 355) BLOOD UREA NITROGEN 26 mg/dL 7-21 H (BEAKER) (test code = 354) CREATININE (BEAKER) 0.67 mg/dL 0.57-1.25 (test code = 358) GLUCOSE RANDOM 141 mg/dL 70-105 H (BEAKER) (test code = 652) CALCIUM (BEAKER) 9.0 mg/dL 8.4-10.2 (test code = 697) EGFR (BEAKER) (test 83 mL/min/1.73 ESTIMA KIRA GFR IS code = 1092) sq m NOT ACCURATE CREATININE CLEARANCE IN PREDICTING GLOMERULAR FILTRATION RATE . ESTIMATED GFR I S NOT APPLICABLE FOR DIALYSIS PATIEN TS. POCT-GLUCOSE [id number] 06:41:00 Test Item Value Reference Range Interpretation Comments POC-GLUCOSE METER 140 mg/dL 70-110 H TESTED AT [facility] 6720 ([facility]) (test code = JEANNIE George [facility] 1538) [address] POCT-GLUCOSE [id number] 00:07:00 Test Item Value Reference Range Interpretation Comments POC-GLUCOSE METER 145 mg/dL 70-110 H TESTED AT [place] [id number] ([facility]) [facility] 1538) [address] CBC W/PLT COUNT & AUTO [id number] 09:57:00 Test Item Value Reference Range Interpretation Comments WHITE BLOOD CELL COUNT (BEAKER) 12.2 K/ L 3.5-10.5 H (test code = 775) RED BLOOD CELL COUNT (BEAKER) 3.94 M/ L 3.93-5.22 (test code = 761) HEMOGLOBIN (BEAKER) (test code = 12.7 GM/DL 11.2-15.7 410) HEMATOCRIT (BEAKER) (test code = 38.9 % 34.1-44.9 411) MEAN CORPUSCULAR VOLUME (BEAKER) 98.7 fL 79.4-94.8 H (test code = 753) MEAN CORPUSCULAR HEMOGLOBIN 32.2 pg 25.6-32.2 (BEAKER) (test code = 751) MEAN CORPUSCULAR HEMOGLOBIN CONC 32.6 GM/DL 32.2-35.5 (BEAKER) (test code = 752) RED CELL DISTRIBUTION WIDTH 13.5 % 11.7-14.4 (BEAKER) (test code = 412) PLATELET COUNT (BEAKER) (test 169 K/CU MM 150-450 code = 756) MEAN PLATELET VOLUME (BEAKER) 10.4 fL 9.4-12.3 (test code = 754) NUCLEATED RED BLOOD CELLS 0 /100 WBC 0-0 (BEAKER) (test code = 413) (CELLAVISION MANUAL DIFF)2019-04-03 09:57:00 Test Item Value Reference Range Interpretation Comments NEUTROPHILS - REL 77 % (CELLAVISION)(BEAKER) (test code = 2816) LYMPHOCYTES - REL 6 % (CELLAVISION)(BEAKER) (test code = 2817) MONOCYTES - REL 17 % (CELLAVISION)(BEAKER) (test code = 2818) NEUTROPHILS - ABS 9.39 K/ul 1.56-6.13 H (CELLAVISION)(BEAKER) (test code = 2830) LYMPHOCYTES - ABS 0.73 K/ul 1.18-3.74 L (CELLAVISION)(BEAKER) (test code = 2831) MONOCYTES - ABS 2.07 K/uL 0.24-0.36 H (CELLAVISION)(BEAKER) (test code = 2832) TOTAL COUNTED (BEAKER) (test code = 100 1351) PLT MORPHOLOGY (BEAKER) (test code Normal = 486) SMUDGE CELLS (BEAKER) (test code = Present 1371) POLYCHROMATOPHILLIC RBCS(BEAKER) 1+ few (test code = 478) POIKILOCYTES (BEAKER) (test code = 1+ few 966) PLATELET CONCENTRATION Adequate (CELLAVISION)(BEAKER) (test code = 3438) Received comment: User comments: Slide comments:[id number] 08:49:00 Test Item Value Reference Range Interpretation Comments PROCALCITONIN (BEAKER) (test code = < ng/mL <0.05 3036) SEPSIS RISK (ng/mL)Low: 0.05-0.50Intermediate: 0.51-2.00High: >=2.01TROPONIN [id number] 08:09:00 Test Item Value Reference Range Interpretation Comments TROPONIN I (BEAKER) (test code = 0.06 ng/mL 0.00-0.03 H 397) Troponin I (TnI) levels must be interpreted in the context of the presenting symptoms and the clinical findings. Elevated TnI levels indicate myocardial damage, but are not specific for ischemic heart disease. Elevated TnI levels are seen in patients with other cardiac conditions (including myocarditis and congestive heart failure), and slight TnI elevations occur in patients with other conditions, including sepsis, renal failure, acidosis, acute neurological disease, and persistent tachyarrhythmia.BASIC METABOLIC [id number] 07:29:00 Test Item Value Reference Range Interpretation Comments SODIUM (BEAKER) 135 meq/L 136-145 L (test code = 381) POTASSIUM (BEAKER) 3.1 meq/L 3.5-5.1 L (test code = 379) CHLORIDE (BEAKER) 102 meq/L 98-107 (test code = 382) CO2 (BEAKER) (test 21 meq/L 22-29 L code = 355) BLOOD UREA NITROGEN 21 mg/dL 7-21 (BEAKER) (test code = 354) CREATININE (BEAKER) 0.70 mg/dL 0.57-1.25 (test code = 358) GLUCOSE RANDOM 139 mg/dL 70-105 H (BEAKER) (test code = 652) CALCIUM (BEAKER) 9.6 mg/dL 8.4-10.2 (test code = 697) EGFR (BEAKER) (test 79 mL/min/1.73 ESTIMA KIRA GFR IS code = 1092) sq m NOT ACCURATE CREATININE CLEARANCE IN PREDICTING GLOMERULAR FILTRATION RATE . ESTIMATED GFR I S NOT APPLICABLE FOR DIALYSIS PATIEN TS. Specimen slightly ictericRAD, ABDOMEN/KUB, 1 VIEW [id number] 06:44:00Reason for exam:->fedding tube placementFINAL REPORT CLINICAL HISTORY: Feeding tube placement COMPARISON: None. FINDINGS: A single supine view of the abdomen is submitted. The tip of a feeding tube overlies expected position of the distal stomach/proximal duodenum. Visualized abdominal bowel gas pattern is nonspecific. There is levoscoliosis of the lumbar spine. Signed: Jelani Oseguera Verified Date/Time: 04/03/2019 06:44:31 Reading Location: [address] Reading Room CT, BRAIN, WITHOUT [id number] 04:27:00FINAL REPORT CLINICAL HISTORY: Stroke follow-up COMPARISON: 04/01/2019. Correlation is made with an MRI brain Multiple axial images of the brain were performed without IV contrast. This exam was performed according to our departmental dose-optimization program, which includes auto mated exposure control, adjustment of the mA and/or kV according to patient size and/or use of the iterative reconstruction technique. The extensive right MCA postischemic changes described on recent MRI have evolved and now demonstrates parenchymal edema with weaver-white and sulcal effacement. As with prior MRI, the post ischemic findings include a right temporoparietal regions and in the right parafalcine frontal lobe as well as the right basal ganglia. There is subtle, amorphous increased densityin the right parafalcine post ischemic territory which could reflect early petechial hemorrhage. Remote post ischemic changes in the left cerebellum, left occipital lobe and left MCA territory are redem onstrated. There is no midline shift or evidence of hydrocephalus. No extra- axial collection is identified. A retention cyst or polyp is present in the right maxillary sinus. The cranium is unremarkable. 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 Subtle, amorphous increased density inthe post ischemic portion of the right parafalcine frontal lobe could reflect subtle petechial hemorrhage. Attention on follow-up. Signed: Jelani Oseguera Verified Date/Time: 04/03/2019 04:27:01 Reading Location: [address] Reading Room HEMOGLOBIN [id number] 15:55:00 Test Item Value Reference Range Interpretation Comments HEMOGLOBIN A1C (BEAKER) (test code = 5.4 % 4.3-6.1 368) TROPONIN [id number] 15:40:00 Test Item Value Reference Range Interpretation Comments TROPONIN I (BEAKER) (test code = 0.05 ng/mL 0.00-0.03 H 397) Troponin I (TnI) levels must be interpreted in the context of the presenting symptoms and the clinical findings. Elevated TnI levels indicate myocardial damage, but are not specific for ischemic heart disease. Elevated TnI levels are seen in patients with other cardiac conditions (including myocarditis and congestive heart failure), and slight TnI elevations occur in patients with other conditions, including sepsis, renal failure, acidosis, acute neurological disease, and persistent tachyarrhythmia.URINALYSIS W/ REFLEX URINE CULTURE 2019-04-02 14:46:00 Test Item Value Reference Range Interpretation Comments COLOR (BEAKER) (test code = 470) Yellow CLARITY (BEAKER) (test code = 469) Clear SPECIFIC GRAVITY UA (BEAKER) (test 1.031 1.001-1.035 code = 468) PH UA (BEAKER) (test code = 467) 6.0 5.0-8.0 PROTEIN UA (BEAKER) (test code = 200 mg/dL Negative A 464) GLUCOSE UA (BEAKER) (test code = Negative Negative 365) KETONES UA (BEAKER) (test code = 150 mg/dL Negative A 371) BILIRUBIN UA (BEAKER) (test code = Negative Negative 462) BLOOD UA (BEAKER) (test code = 461) Moderate Negative A NITRITE UA (BEAKER) (test code = Negative Negative 465) LEUKOCYTE ESTERASE UA (BEAKER) Moderate Negative A (test code = 466) UROBILINOGEN UA (BEAKER) (test code 0.2 mg/dL 0.2-1.0 = 463) RBC UA (BEAKER) (test code = 519) 315 /HPF WBC UA (BEAKER) (test code = 520) 0 /HPF MUCUS (BEAKER) (test code = 1574) Few SQUAMOUS EPITHELIAL (BEAKER) (test < /HPF code = 516) SOURCE(BEAKER) (test code = 2795) RAD, CHEST, 1 VIEW, NON [id number] 14:28:00Reason for exam:->c/f aspirationShould this be performed at the bedside?->YesFINAL REPORT RAD, CHEST, 1 VIEW, NON DEPT INDICATION: c/f aspiration COMPARISO N: Prior day's exam FINDINGS: Portable frontal view of the chest. IMPRESSION: Support Lines: None. Lungs and pleura: Congestive interstitial changes are similar in appearance to the prior examination. No pneumothorax.Heart and mediastinum: Stable contours. Additional findings: None. Signed: JR Singleton Robert MDReport Verified Date/Time: 04/02/2019 14:28:45 Reading Location: [facility] Radiology Reading Room BLOOD GAS, [id number] 07:35:00 Test Item Value Reference Range Interpretation Comments PH ARTERIAL (BEAKER) (test code = 7.52 7.35-7.45 H 383) PCO2 ARTERIAL (BEAKER) (test code 28 mmHg 35-45 L = 384) PO2 ARTERIAL (BEAKER) (test code = 102 mmHg 80-90 H 385) O2 SATURATION ARTERIAL (BEAKER) 98.1 % 96.0-97.0 H (test code = 386) HCO3 ARTERIAL (BEAKER) (test code 22 mmol/L 21-29 = 388) BASE EXCESS ARTERIAL (BEAKER) 0.5 mmol/L -2.0-3.0 (test code = 387) PATIENT TEMPERATURE (BEAKER) (test 37.5 C code = 1818) FIO2 (BEAKER) (test code = 1819) 21.0 % CBC W/PLT COUNT & AUTO [id number] 07:17:00 Test Item Value Reference Range Interpretation Comments WHITE BLOOD CELL COUNT (BEAKER) 16.3 K/ L 3.5-10.5 H (test code = 775) RED BLOOD CELL COUNT (BEAKER) 4.16 M/ L 3.93-5.22 (test code = 761) HEMOGLOBIN (BEAKER) (test code = 13.9 GM/DL 11.2-15.7 410) HEMATOCRIT (BEAKER) (test code = 40.3 % 34.1-44.9 411) MEAN CORPUSCULAR VOLUME (BEAKER) 96.9 fL 79.4-94.8 H (test code = 753) MEAN CORPUSCULAR HEMOGLOBIN 33.4 pg 25.6-32.2 H (BEAKER) (test code = 751) MEAN CORPUSCULAR HEMOGLOBIN CONC 34.5 GM/DL 32.2-35.5 (BEAKER) (test code = 752) RED CELL DISTRIBUTION WIDTH 13.5 % 11.7-14.4 (BEAKER) (test code = 412) PLATELET COUNT (BEAKER) (test 189 K/CU MM 150-450 code = 756) MEAN PLATELET VOLUME (BEAKER) 10.1 fL 9.4-12.3 (test code = 754) NUCLEATED RED BLOOD CELLS 0 /100 WBC 0-0 (BEAKER) (test code = 413) (CELLAVISION MANUAL DIFF)2019-04-02 07:17:00 Test Item Value Reference Range Interpretation Comments NEUTROPHILS - REL 88 % (CELLAVISION)(BEAKER) (test code = 2816) LYMPHOCYTES - REL 6 % (CELLAVISION)(BEAKER) (test code = 2817) MONOCYTES - REL 4 % (CELLAVISION)(BEAKER) (test code = 2818) ATYPICAL LYMPHOCYTES - REL 2 % 0-0 H (CELLAVISION)(BEAKER) (test code = 2829) NEUTROPHILS - ABS 14.34 K/ul 1.56-6.13 H (CELLAVISION)(BEAKER) (test code = 2830) LYMPHOCYTES - ABS 0.98 K/ul 1.18-3.74 L (CELLAVISION)(BEAKER) (test code = 2831) MONOCYTES - ABS 0.65 K/uL 0.24-0.36 H (CELLAVISION)(BEAKER) (test code = 2832) ATYPICAL LYMPHOCYTES - ABS 0.33 K/uL 0.00-0.00 H (CELLAVISION)(BEAKER) (test code = 2858) TOTAL COUNTED (BEAKER) (test code 100 = 1351) WBC MORPHOLOGY (BEAKER) (test code Normal = 487) PLT MORPHOLOGY (BEAKER) (test code Normal = 486) POLYCHROMATOPHILLIC RBCS(BEAKER) 1+ few (test code = 478) MACROCYTES (BEAKER) (test code = 1+ few 964) ARTIFACT (CELLAVISION)(BEAKER) Present (test code = 3432) PLATELET CONCENTRATION Adequate (CELLAVISION)(BEAKER) (test code = 3439) Received comment: User comments: Slide comments:TROPONIN [id number] 03:39:00 Test Item Value Reference Range Interpretation Comments TROPONIN I (BEAKER) (test code = 0.03 ng/mL 0.00-0.03 397) Troponin I (TnI) levels must be interpreted in the context of the presenting symptoms and the clinical findings. Elevated TnI levels indicate myocardial damage, but are not specific for ischemic heart disease. Elevated TnI levels are seen in patients with other cardiac conditions (including myocarditis and congestive heart failure), and slight TnI elevations occur in patients with other conditions, including sepsis, renal failure, acidosis, acute neurological disease, and persistent tachyarrhythmia.FastingBASIC METABOLIC [id number] 03:31:00 Test Item Value Reference Range Interpretation Comments SODIUM (BEAKER) 137 meq/L 136-145 (test code = 381) POTASSIUM (BEAKER) 3.5 meq/L 3.5-5.1 Specimen slightly (test code = 379) hemolyzed CHLORIDE (BEAKER) 101 meq/L 98-107 (test code = 382) CO2 (BEAKER) (test 21 meq/L 22-29 L code = 355) BLOOD UREA NITROGEN 22 mg/dL 7-21 H (BEAKER) (test code = 354) CREATININE (BEAKER) 0.77 mg/dL 0.57-1.25 Specimen slightly (test code = 358) hemolyzed GLUCOSE RANDOM 138 mg/dL 70-105 H (BEAKER) (test code = 652) CALCIUM (BEAKER) 9.9 mg/dL 8.4-10.2 (test code = 697) EGFR (BEAKER) (test 71 mL/min/1.73 ESTIMA KIRA GFR IS code = 1092) sq m NOT ACCURATE CREATININE CLEARANCE IN PREDICTING GLOMERULAR FILTRATION RATE . ESTIMATED GFR I S NOT APPLICABLE FOR DIALYSIS PATIEN TS. FastingSpecimen slightly ictericLIPID [id number] 03:31:00 Test Item Value Reference Range Interpretation Comments TRIGLYCERIDES (BEAKER) 52 mg/dL Speci men slightly (test code = 540) hemolyzed CHOLESTEROL (BEAKER) 193 mg/dL Specime n slightly (test code = 631) hemolyzed HDL CHOLESTEROL (BEAKER) 47 mg/dL (test code = 976) LDL CHOLESTEROL 136 mg/dL CALCULATED (BEAKER) (test code = 633) Triglyceride Reference Range: Low Risk <150 Borderline 150-199 High Risk 200-499 Very High Risk >=500Cholesterol Reference Range: Low Risk <200 Borderline 200-239 High Risk >240HDL Cholesterol Reference Range: Low Risk >=60 High Risk <40LDL Cholesterol Reference Range: Optimal <100 Near Optimal 100-129 Borderline 130-159 High 160-189 Very High >=190 FastingSpecimen slightly ictericURINALYSIS W/ REFLEX URINE CULTURE 2019-04-02 03:30:00 Test Item Value Reference Range Interpretation Comments COLOR (BEAKER) (test code = 470) Yellow CLARITY (BEAKER) (test code = 469) Clear SPECIFIC GRAVITY UA (BEAKER) (test 1.021 1.001-1.035 code = 468) PH UA (BEAKER) (test code = 467) 7.0 5.0-8.0 PROTEIN UA (BEAKER) (test code = 10 mg/dL Negative A 464) GLUCOSE UA (BEAKER) (test code = Negative Negative 365) KETONES UA (BEAKER) (test code = 60 mg/dL Negative A 371) BILIRUBIN UA (BEAKER) (test code = Negative Negative 462) BLOOD UA (BEAKER) (test code = 461) Negative Negative NITRITE UA (BEAKER) (test code = Negative Negative 465) LEUKOCYTE ESTERASE UA (BEAKER) Negative Negative (test code = 466) UROBILINOGEN UA (BEAKER) (test code 0.2 mg/dL 0.2-1.0 = 463) RBC UA (BEAKER) (test code = 519) 2 /HPF WBC UA (BEAKER) (test code = 520) < /HPF MUCUS (BEAKER) (test code = 1574) Rare SOURCE(BEAKER) (test code = 2795) MR, BRAIN, WITHOUT [id number] 00:34:00Addendum BeginsREPORT STATUS:A There is also an acute right CAMILO territory infarct. Discussed with neurology resident at approximately 12:30 AM 04/02/2019. Signed: Karan Rod MDReport Verified Date/Time: 04/02/2019 00:34:28 Addendum EndsFINAL REPORT Exam: MRI brain without contrast. Comparison: None. Clinical indication: Neuro deficit, acute, stroke suspected Technique: Multiplanar multi sequential MR imaging of the brain was performed without the administration of intravenous contrast. Findings: The study is limited by motion artifact. There is adiffuse area of restricted diffusion in the right parietal lobe consistent with an acute infarct. There are acute infarcts in the right parasagittal frontal lobe, right insular cortex, right putamen, superior right temporal lobe and right mesial temporal lobe. 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 There is no abnormality on susceptibility sequences to suggest hemorrhage or hemosiderin deposition. There is generalized parenchymal atrophy. There is no intracranial mass, significant mass effect, extra-axial collection, hydrocephalus or herniation. The skull base flow-voids are seen in keeping with their patency. There is a polyp or retention cyst in the right maxillary sinus. The mastoid air cells are clear. There are bilateral lens replacements. The sella and parasellar regions are unremarkable. The craniocervical junction is normal. 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 Discussed with covering neurology resident at 1215a 04/02/19. Signed: Karan Rod MDRepprogress west hospital Verified Date/Time: 04/02/2019 00:22:44 , MRA, BRAIN, WITHOUT [id number] 00:33:00FINAL REPORT MRA head without contrast. CLINICAL HISTORY: Stroke.. COMPARISON: None. TECHNIQUE: 3-D [id number] MRA of the head was provided with maximal intensity projection3-D reconstructions of the intracranial arterial vasculatures. FINDINGS: The study is limited by motion artifact. The intradural vertebral arteries and proximal basilar artery were not imaged. There isno proximal vessel occlusion in the visualized intracranial carotid or basilar arterial circulations. There is decreased or absent flow in the right M2 and M3 branches and in the right distal A2 and [id number] when compared to the left. There is no intracranial aneurysm. IMPRESSION: Limited exam.No proximal vessel occlusion.Decreased or absent flow in the right M2 and M3 branches and in the right distal A2 and A3 branches when compared to the left. Discussed with covering neurology resident at approximately 12:30 AM 04/02/2019. Signed: Karan Rodort Verified Date/Time: 04/02/2019 00:33:50 POCT-GLUCOSE [id number] 21:10:00 Test Item Value Reference Range Interpretation Comments POC-GLUCOSE METER 158 mg/dL 70-110 H TESTED AT [facility] [address] ([facility]) (test code = [place] 1538) [id number] TROPONIN [id number] 17:20:00 Test Item Value Reference Range Interpretation Comments TROPONIN I (BEAKER) (test code = 397) < ng/mL 0.00-0.03 Troponin I (TnI) levels must be interpreted in the context of the presenting symptoms and the clinical findings. Elevated TnI levels indicate myocardial damage, but are not specific for ischemic heart disease. Elevated TnI levels are seen in patients with other cardiac conditions (including myocarditis and congestive heart failure), and slight TnI elevations occur in patients with other conditions, including sepsis, renal failure, acidosis, acute neurological disease, and persistent tachyarrhythmia.B-TYPE NATRIURETIC FACTOR (BNP) 2019-04-01 17:19:00 Test Item Value Reference Range Interpretation Comments B-TYPE NATRIURETIC PEPTIDE (BEAKER) 558 pg/mL 0-100 H (test code = 700) LACTIC ACID, [id number] 17:17:00 Test Item Value Reference Range Interpretation Comments LACTATE BLOOD VENOUS 1.5 mmol/L 0.5-2.2 Specime n slightly (2) (BEAKER) (test hemolyzed code = 1473) BASIC METABOLIC [id number] 17:17:00 Test Item Value Reference Range Interpretation Comments SODIUM (BEAKER) (test 137 meq/L 136-145 code = 381) POTASSIUM (BEAKER) 3.9 meq/L 3.5-5.1 Specimen slightly (test code = 379) hemolyzed CHLORIDE (BEAKER) 101 meq/L 98-107 (test code = 382) CO2 (BEAKER) (test 23 meq/L 22-29 code = 355) BLOOD UREA NITROGEN 25 mg/dL 7-21 H (BEAKER) (test code = 354) CREATININE (BEAKER) 0.81 mg/dL 0.57-1.25 Specimen slightly (test code = 358) hemolyzed GLUCOSE RANDOM 140 mg/dL 70-105 H (BEAKER) (test code = 652) CALCIUM (BEAKER) 9.9 mg/dL 8.4-10.2 (test code = 697) EGFR (BEAKER) (test INSUFFIC IENT CLINICAL code = 1092) DATA TO CALCULA TE ESTIMATED GFR. PT/[id number] 17:15:00 Test Item Value Reference Range Interpretation Comments PROTIME (BEAKER) (test code = 13.3 seconds 11.9-14.2 759) INR (BEAKER) (test code = 370) 1.1 <=5.9 PARTIAL THROMBOPLASTIN TIME 25.1 seconds 22.5-36.0 (BEAKER) (test code = 760) Effective 12/19/2018: PT Reference Range ChangeNew: 11.9-14.2 Previous: 11.7- 14.7RECOMMENDED COUMADIN/WARFARIN INR THERAPY RANGESSTANDARD DOSE: 2.0-3.0 Includes: PROPHYLAXIS for venous thrombosis, systemic embolization; TREATMENT for venous thrombosis and/or pulmonary embolus.HIGH RISK: Target INR is2.5-3.5 for patients wiht mechanical heart valves.[id number] 17:14:00 Test Item Value Reference Range Interpretation Comments AMMONIA (BEAKER) (test code = 348) 30 mol/L 18-72 [id number] 17:12:00 Test Item Value Reference Range Interpretation Comments MAGNESIUM (BEAKER) 2.1 mg/dL 1.6-2.6 Specimen slightly (test code = 627) hemolyzed HEPATIC FUNCTION [id number] 17:12:00 Test Item Value Reference Range Interpretation Comments TOTAL PROTEIN (BEAKER) 7.6 gm/dL 6.0-8.3 Speci men slightly (test code = 770) hemolyzed ALBUMIN (BEAKER) (test 4.5 g/dL 3.5-5.0 Speci men slightly code = 1145) hemolyzed BILIRUBIN TOTAL 0.7 mg/dL 0.2-1.2 Specimen sli ghtly (BEAKER) (test code = hemoly zed 377) BILIRUBIN DIRECT 0.2 mg/dL 0.1-0.5 Specimen sl ightly (BEAKER) (test code = hemoly zed 706) ALKALINE PHOSPHATASE 74 U/L 40-150 (BEAKER) (test code = 346) AST (SGOT) (BEAKER) 45 U/L 5-34 H Specimen slightly (test code = 353) hemolyzed ALT (SGPT) (BEAKER) 26 U/L 6-55 Specimen slightly (test code = 347) hemolyzed [id number] 17:12:00 Test Item Value Reference Range Interpretation Comments LIPASE (BEAKER) (test code = 749) 19 U/L 8-78 RAD, CHEST, 1 VIEW, NON [id number] 17:09:00Reason for exam:->sobShould this be performed at the bedside?->YesFINAL REPORT EXAM: Frontal chest radiograph HISTORY PROVIDED: Shortness of breath COMPARISON: None available IMPRESSION:The left lung demonstrates interstitial and airspace opacities which are nonspecific and may represent pneumonia in the appropriate clinical setting. There is a small left pleural effusion. Mild central pulmonary vascular congestion is suspected. The cardiac silhouette is enlarged. There is atherosclerotic calcification of the aorta. No acute osseous abnormality. Degenerative changes of the spine are noted. Signed: Edgardo Espinoza MDReport Verified Date/Time: 04/01/2019 17:09:33 Reading Location: [facility] Mammo Reading Room W/PLT COUNT & AUTO [id number] 16:57:00 Test Item Value Reference Range Interpretation Comments WHITE BLOOD CELL COUNT (BEAKER) 8.2 K/ L 3.5-10.5 (test code = 775) RED BLOOD CELL COUNT (BEAKER) 3.99 M/ L 3.93-5.22 (test code = 761) HEMOGLOBIN (BEAKER) (test code = 13.0 GM/DL 11.2-15.7 410) HEMATOCRIT (BEAKER) (test code = 38.3 % 34.1-44.9 411) MEAN CORPUSCULAR VOLUME (BEAKER) 96.0 fL 79.4-94.8 H (test code = 753) MEAN CORPUSCULAR HEMOGLOBIN 32.6 pg 25.6-32.2 H (BEAKER) (test code = 751) MEAN CORPUSCULAR HEMOGLOBIN CONC 33.9 GM/DL 32.2-35.5 (BEAKER) (test code = 752) RED CELL DISTRIBUTION WIDTH 13.6 % 11.7-14.4 (BEAKER) (test code = 412) PLATELET COUNT (BEAKER) (test 187 K/CU MM 150-450 code = 756) MEAN PLATELET VOLUME (BEAKER) 10.2 fL 9.4-12.3 (test code = 754) NUCLEATED RED BLOOD CELLS 0 /100 WBC 0-0 (BEAKER) (test code = 413) NEUTROPHILS RELATIVE PERCENT 83 % (BEAKER) (test code = 429) LYMPHOCYTES RELATIVE PERCENT 9 % (BEAKER) (test code = 430) MONOCYTES RELATIVE PERCENT 6 % (BEAKER) (test code = 431) EOSINOPHILS RELATIVE PERCENT 0 % (BEAKER) (test code = 432) BASOPHILS RELATIVE PERCENT 0 % (BEAKER) (test code = 437) NEUTROPHILS ABSOLUTE COUNT 6.86 K/ L 1.56-6.13 H (BEAKER) (test code = 670) LYMPHOCYTES ABSOLUTE COUNT 0.77 K/ L 1.18-3.74 L (BEAKER) (test code = 414) MONOCYTES ABSOLUTE COUNT (BEAKER) 0.52 K/ L 0.24-0.36 H (test code = 415) EOSINOPHILS ABSOLUTE COUNT 0.00 K/ L 0.04-0.36 L (BEAKER) (test code = 416) BASOPHILS ABSOLUTE COUNT (BEAKER) 0.01 K/ L 0.01-0.08 (test code = 417) IMMATURE GRANULOCYTES-RELATIVE 1 % 0-1 PERCENT (BEAKER) (test code = 2801) CT, BRAIN/STROKE [id number] 16:26:00Reason for exam:->unilateral weaknessWhat is the patient's sedation requirement?->No SedationFINAL REPORT CT, BRAIN/STROKE PROTOCOL CLINICAL INDICATION: HemiplegiaNeuro deficit(s), subacuteunilateral weakness COMPARISON: None TECHNIQUE: Noncontrast axial CT imaging of the brain and skull. DOSE REDUCTION: Dose modulation, iterative reconstruction, and/or weight-based a djustment of the mA/kV was utilized to reduce the radiation dose to as low as reasonably achievable.FINDINGS:No intracranial hemorrhage, midline shift or mass effect. Midline structures are normally developed. Mild chronic microvascular ischemic changes of the periventricular and subcortical white matter are present. Multiple remote infarcts including the left cerebellar hemisphere, bilateral MCA territories and the basal ganglia. No hydrocephalus. Orbits are within normal limits. No obstructive paranasal sinus disease. IMPRESSION: No acute intracranial findings. Specifically, no CT evidence of acute infarct. Multiple prior infarcts including the bilateral MCA territories, basal ganglia and leftcerebellar hemisphere If there is persistent clinical concern for intracranial pathology, MR examination is recommended for further characterization. Signed: Jorje Mack MDReport Verified Date/Time: 04/01/2019 16:26:43 Reading Location: [address] Neuro Reading Room
--- OUTSIDE RECORDS SUMMARY | 2020-05-14 14:21 | XMS REPORT | Summary of Care ---
:1930 Author Organization [facility] - Health Address [address] [place] [address] Care Team Providers Name Role Phone Gilberto Mortensen MD Primary Care Provider Encounter Details Date Type Department Care Team Description 03/12/2020 Orders Only [facility] Doctor Unassigned, No 301 [facility] [place] [address] [address] [place] [address] Allergies Active Allergy Reactions Severity Noted Date Comments Beta-Blockers Other - See comments 07/23/2019 "fast heart beat" (Beta-Adrenergic Blocking Agts) Clonidine Rash 07/23/2019 Doxycycline Hyclate Other - See comments 07/23/2019 "eye and arm problem" Levofloxacin Other - See comments 07/23/2019 "headac he" Clopidogrel Bisulfate Other - See comments 07/23/2019 "fast heart beat" documented as of this encounter (statuses as of 04/16/2020) Medications Medication Sig Dispensed Refills Start Date End Date Status apixaban (ELIQUIS) 2.5 Take 2.5 mg by 0 Active mg tablet mouth 2 (two) times daily. atorvastatin (LIPITOR) Take 40 mg by 0 Active 40 mg tablet mouth at bedtime. acetaminophen (TYLENOL Take 650 mg by 0 Active ORAL) mouth 3 (three) times daily. aspirin 81 mg chewable Take 81 mg by 0 Active tablet mouth daily. metoprolol tartrate 25 Take 12.5 mg by 0 Active mg tablet mouth 2 (two) times daily. omeprazole 40 mg Take 40 mg by 0 Active capsule mouth. lisinopril 10 mg tablet Take 5 mg by 0 Active mouth daily. cranberry fruit Take 1,000 mg by 0 Active concentrate (AZO mouth 2 (two) CRANBERRY ORAL) times daily. sennosides (SENNA) 8.6 Take 8.6 mg by 0 Active mg tablet mouth daily. lactobacillus Take 1 tablet by 60 tablet 0 10/19/2019 Active acidophilus 25 million mouth 2 (two) cell -100 mg times daily. captabIndications: Chest pain, unspecified type mupirocin 2 % Apply to 22 g 5 10/30/2019 Activ e ointmentIndications: area(s) 2 (two) Pressure injury of left times daily. heel, stage 1 DICLOFENAC SODIUM 1 % APPLY TO 1 Tube 4 12/30/2019 Active gelIndications: AFFECTED AREA(S) Neuropathy 2GMS DAILY hydrocortisone Insert into 30 g 0 02/10/2020 A ctive (PROCTOZONE-HC) 2.5 % rectum 2 (two) rectal times daily. creamIndications: Hemorrhoids, unspecified hemorrhoid type GABAPENTIN 300 mg TAKE ONE CAPSULE 30 capsule 4 03/02/2020 Active capsule BY MOUTH AT BEDTIME gabapentin 100 mg Take 1 capsule 90 capsule 5 03/09/2020 Active capsuleIndications: by mouth 3 Neuropathy (three) times daily. 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 Never 09/10/2019 How many drinks containing alcohol do you have on a typical Not asked day when you are drinking? How often do you have six or more drinks on one occasion? No t asked Sex Assigned at Date Recorded Not on file documented as of this encounter Last Filed Vital Signs Not on filedocumented in this encounter Plan of Treatment Health Maintenance Due Date Last Done Comments DTaP,Tdap,and Td Vaccines (1 - Tdap) 1949 Zoster Recombinant Vaccine (SHINGRIX) (1 of 2) 1981 Medicare Wellness Visit 1996 Osteoporosis Screening 1996 PNEUMOCOCCAL VACCINES 65+ (1 of 1 - PPSV23) 1996 INFLUENZA VACCINE (#1) 2020 Depression Screening 09/17/2020 09/17/2019 documented as of this encounter Implants Implanted Type Area Flame Hardening Machine Setter Device Identifier Shelf Exp iration Model / Serial Date / Lot Stent STENT documented as of this encounter Procedures Procedure Name Priority Date/Time Associated Diagnosis Comme [facility] HOME HEALTH 485 Routine 03/12/2020 12:01 AM CDT documented in this encounter Results Not on filedocumented in this encounter Insurance Payer Benefit Plan / Subscriber ID Effective Dates Phone Addre ss Type Group MEDICARE MEDICARE PART [id number] 1996-Mimi [phone] [address] Medicare A & B t [id number] [address] HUMANA HUMANA HEALTH [id number] 2012-Mimi PPO OF [place] t documented as of this encounter
--- OUTSIDE RECORDS SUMMARY | 2020-05-14 14:22 | XMS REPORT | Summary of Care ---
:1930 Author Organization [facility] - [facility] Address [address] [place] [address] Care Team Providers Name Role Phone Gilberto Mortensen MD Primary Care Provider Reason for Visit Reason Comments Assessment Encounter Details Date Type Department Care Team Description 04/24/2020 Telephone [facility] Family Medicine Maksim Gomes MD Assessment - [address] [place] [address] [place] [address] [phone] Allergies Active Allergy Reactions Severity Noted Date Comments Beta-Blockers Other - See comments 07/23/2019 "fast heart beat" (Beta-Adrenergic Blocking Agts) Clonidine Rash 07/23/2019 Doxycycline Hyclate Other - See comments 07/23/2019 "eye and arm problem" Levofloxacin Other - See comments 07/23/2019 "headac he" Clopidogrel Bisulfate Other - See comments 07/23/2019 "fast heart beat" documented as of this encounter (statuses as of 04/24/2020) Medications Medication Sig Dispensed Refills Start Date [...] as of this encounter (statuses as of 04/24/2020) Active Problems Problem Noted Date Dysphagia 10/19/2019 Chest pain 10/18/2019 Chronic a-fib 07/24/2019 Essential hypertension 07/24/2019 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 Dyslipidemia 07/24/2019 History of CVA (cerebrovascular accident) 07/24/2019 Elevated brain natriuretic peptide (BNP) level 020 Atypical chest pain 07/23/2019 documented as of this encounter (statuses as of 04/24/2020) Social History Tobacco Use Types Packs/Day Years [...] Signs Not on filedocumented in this encounter Miscellaneous Notes Telephone Encounter - Carlyn Salazar - 04/24/2020 11:01 AM CDTCalled and spoke with Myrna informed her of these recommendations elephone Encounter - Maksim Mortensen MD - 04/24/2020 10:30 AM CDTTry taking gabapentin up to tid prn elephone Encounter - Carlyn Salazar - 04/24/2020 10:23 AM CDTReview and Advise elephone Encounter - Deedee Santo - 04/24/2020 9:55 AM CDTMelissa from [facility] stating that the patient had a bad night last night, and is stating that the patient was having lower extremity pain at a level 10. Patient is stating that it looks like thepatients gabapentin 100 mg capsule isn't working. Myrna is requesting a call back. documented in this encounter Plan of Treatment Health Maintenance Due Date Last Done Comments DTaP,Tdap,and Td Vaccines (1 - Tdap) 1950 Zoster Recombinant Vaccine (SHINGRIX) (1 of 2) 1981 Medicare Wellness Visit 1996 Osteoporosis Screening 1996 PNEUMOCOCCAL VACCINES 65+ (1 of 1 - PPSV23) 1996 INFLUENZA VACCINE (#1) 2020 Depression Screening 09/17/2020 09/17/2019 documented as of this encounter Implants Implanted Type Area Ring Facer Device Identifier Shelf Exp iration Model / Serial Date / Lot Stent STENT documented as of this encounter Results Not on filedocumented in this encounter Insurance Payer Benefit Plan / Subscriber ID Effective Dates Phone Addre ss Type Group MEDICARE MEDICARE PART [id number] 1996-[place]imi [phone] [address] Medicare A & B t 2 [id number] [place] [id number] [facility] [employer] HE[employer] [id number] 2012-Mimi PPO OF [place] t documented as of this encounter
--- OUTSIDE RECORDS SUMMARY | 2020-05-14 14:23 | XMS REPORT | Summary of Care ---
:1930 Author Organization [facility] - [facility] Address [address] [place] [address] Care Team Providers Name Role Phone Gilberto Mortensen MD Primary Care Provider Reason for Visit Reason Comments Assessment Encounter Details Date Type Department Care Team Description 04/24/2020 Telephone [facility] Family Medicine Maksim Gomes MD Assessment - [address] [place] [address] [place] [address] [phone] Allergies Active Allergy Reactions Severity Noted Date Comments Beta-Blockers Other - See comments 07/23/2019 "fast heart beat" (Beta-Adrenergic Blocking Agts) Clonidine Rash 07/23/2019 Doxycycline Hyclate Other - See comments 07/23/2019 "eye and arm problem" Levofloxacin Other - See comments 07/23/2019 "headac he" Clopidogrel Bisulfate Other - See comments 07/23/2019 "fast heart beat" documented as of this encounter (statuses as of 04/27/2020) Medications Medication Sig Dispensed Refills Start Date [...] as of this encounter (statuses as of 04/27/2020) Active Problems Problem Noted Date Dysphagia 10/19/2019 Chest pain 10/18/2019 Chronic a-fib 07/24/2019 Essential hypertension 07/24/2019 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 elephone Encounter - Ruma Escamilla - 04/24/2020 11:56 AM CDTSOP is calling to talk to nurse in regards to todays assessment on previous phone encounter.gabapentin 100 mg capsule & GABAPENTIN 300 mg capsule documented in this encounter Plan of Treatment Health Maintenance Due Date Last Done Comments DTaP,Tdap,and Td Vaccines (1 - Tdap) 1950 Zoster Recombinant Vaccine (SHINGRIX) (1 of 2) 1981 Medicare Wellness Visit 1996 Osteoporosis Screening 1996 PNEUMOCOCCAL VACCINES 65+ (1 of 1 - PPSV23) 1996 INFLUENZA VACCINE (#1) 2020 Depression Screening 09/17/2020 09/17/2019 documented as of this encounter Implants Implanted Type Area Children'S Service Worker Device Identifier Shelf Exp iration Model / Serial Date / Lot Stent STENT documented as of this encounter Results Not on filedocumented in this encounter Insurance Payer Benefit Plan / Subscriber ID Effective Dates Phone Addre ss Type Group MEDICARE MEDICARE PART [id number] 1996-Mimi [phone] [address] [facility] Medicare A & B t 2 [id number] [place] [phone] [employer]MANA [employer]NA HE[employer] [id number] 2012-Mimi [place] t documented as of this encounter
--- OUTSIDE RECORDS SUMMARY | 2020-05-14 14:23 | XMS REPORT | Summary of Care ---
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 Medicare A & B t [id number] [place] [address] [employer]MANA [employer]NA HE[employer] [id number] 2012-Mimi PPO OF [place] t documented as of this encounter
--- OUTSIDE RECORDS SUMMARY | 2020-05-14 14:23 | XMS REPORT | Summary of Care ---
:1930 Author Organization [facility] [employer] [facility] Address [address] [place] [address] Care Team Providers Name Role Phone Gilberto Mortensen MD Primary Care Provider Reason for Visit Reason Comments Rx Concern/Question Encounter Details Date Type Department Care Team Description 04/30/2020 Telephone [facility] Family Maksim Mortensen Rx Conc han/Question Medicine - Lakisha Macias MD [address] [place] [address] Dr av[address] [place] [address] [place] [address] [place] [address] [phone] Allergies Active Allergy Reactions Severity Noted Date Comments Beta-Blockers Other - See comments 07/23/2019 "fast heart beat" (Beta-Adrenergic Blocking Agts) Clonidine Rash 07/23/2019 Doxycycline Hyclate Other - See comments 07/23/2019 "eye and arm problem" Levofloxacin Other - See comments 07/23/2019 "headac he" Clopidogrel Bisulfate Other - See comments 07/23/2019 "fast heart beat" documented as of this encounter (statuses as of 04/30/2020) Medications Medication Sig Dispensed Refills Start Date [...] as of this encounter (statuses as of 04/30/2020) Active Problems Problem Noted Date Dysphagia 10/19/2019 Chest pain 10/18/2019 Chronic a-fib 07/24/2019 Essential hypertension 07/24/2019 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 Please contact Shannan at [phone] signed by Kaykay Moore at 04/30/2020 8:37 AM CDTdocumented in this encounter Plan of Treatment Health Maintenance Due Date Last Done Comments DTaP,Tdap,and Td Vaccines (1 - Tdap) 1950 Zoster Recombinant Vaccine (SHINGRIX) (1 of 2) 1981 Medicare Wellness Visit 1996 Osteoporosis Screening 1996 PNEUMOCOCCAL VACCINES 65+ (1 of 1 - PPSV23) 1996 INFLUENZA VACCINE (#1) 2020 Depression Screening 09/17/2020 09/17/2019 documented as of this encounter Implants Implanted Type Area Slasher Hand Device Identifier Shelf Exp iration Model / Serial Date / Lot Stent STENT documented as of this encounter Results Not on filedocumented in this encounter Insurance Payer Benefit Plan / Subscriber ID Effective Dates Phone Addre ss Type Group MEDICARE MEDICARE PART [id number] 1996-Mimi [phone] [address] Medicare A & B t 2 [id number] [place] [address] [employer]NA [employer] [id number] 2012-Mimi PPO OF [place] t documented as of this encounter
--- OUTSIDE RECORDS SUMMARY | 2020-05-14 14:24 | XMS REPORT | Summary of Care ---
:[address] [facility] [employer] [facility] Address [address] [place] [address] Care Team Providers Name Role Phone Gilberto Mortensen MD Primary Care Provider Reason for Visit Reason Comments Rx Concern/Question Encounter Details Date Type Department Care Team Description 05/04/[address] [facility] [employer] Family Maksim Mortensen Rx Conc han/Question Medicine - Lakisha Macias MD [address] [place] [address] Dr av[address] [place] [address] [place] [address] [place] [address] [phone] Allergies Active Allergy Reactions Severity Noted Date Comments Beta-Blockers Other - See comments 07/23/2019 "fast heart beat" (Beta-Adrenergic Blocking Agts) Clonidine Rash 07/23/2019 Doxycycline Hyclate Other - See comments 07/23/2019 "eye and arm problem" Levofloxacin Other - See comments 07/23/2019 "headac he" Clopidogrel Bisulfate Other - See comments 07/23/2019 "fast heart beat" documented as of this encounter (statuses as of 05/04/2020) Medications Medication Sig Dispensed Refills Start Date End Date Status apixaban (ELIQUIS) Take 2.5 mg 0 Active 2.5 mg tablet by mouth 2 (two) times daily. atorvastatin Take 40 mg by 0 Act fabrice (LIPITOR) 40 mg mouth at tablet bedtime. acetaminophen Take 650 mg 0 Acti ve (TYLENOL ORAL) by mouth 3 (three) times daily. aspirin 81 mg Take 81 mg by 0 Ac tive chewable tablet mouth daily. metoprolol tartrate Take 12.5 mg 0 Active 25 mg tablet by mouth 2 (two) times daily. omeprazole 40 mg Take 40 mg by 0 Active capsule mouth. lisinopril 10 mg Take 5 mg by 0 Active tablet mouth daily. cranberry fruit Take 1,000 mg 0 Active concentrate (AZO by mouth 2 CRANBERRY ORAL) (two) times daily. sennosides (SENNA) Take 8.6 mg 0 Active 8.6 mg tablet by mouth daily. lactobacillus Take 1 tablet 60 tablet 0 10/19/2019 A ctive acidophilus 25 by mouth 2 million cell -100 (two) times mg daily. captabIndications: Chest pain, unspecified type mupirocin 2 % Apply to 22 g 5 10/30/2019 Activ e ointmentIndications area(s) 2 : Pressure injury (two) times of left heel, stage daily. 1 DICLOFENAC SODIUM 1 APPLY TO 1 Tube 4 12/30/2019 Active % gelIndications: AFFECTED Neuropathy AREA(S) 2GMS DAILY hydrocortisone Insert into 30 g 0 02/10/2020 A ctive (PROCTOZONE-HC) 2.5 rectum 2 % rectal (two) times creamIndications: daily. Hemorrhoids, unspecified hemorrhoid type gabapentin 100 mg Take 1 90 capsule 5 03/09/2020 Active capsuleIndications: capsule by Neuropathy mouth 3 (three) times daily. gabapentin 300 mg Take 1 90 capsule 5 05/04/2020 Active capsuleIndications: capsule by Neuropathy mouth 3 (three) times daily. 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 Dyslipidemia 07/24/2019 History of CVA (cerebrovascular accident) 07/24/2019 Elevated brain natriuretic peptide (BNP) level 01/01/2 020 Atypical chest pain 07/23/2019 documented as of this encounter (statuses as of 05/04/2020) Social History Tobacco Use Types Packs/Day Years [...] Notes Telephone Encounter - Carlyn Salazar - 05/04/2020 9:28 AM CDTCan you change the dosage on the script because she will run out sooner elephone Encounter - Letitia Joyce - 05/04/2020 9:11 AM CDTSOP is calling and is requesting an update on encounter from 05/01/20, SOP would also like to know if can rewrite the presciption to 300mg 3x a day due to the changes in prescription,please call SOP back in regards to this encounter. documented in this encounter Plan of Treatment Health Maintenance Due Date Last Done Comments DTaP,Tdap,and Td Vaccines (1 - Tdap) 1950 Zoster Recombinant Vaccine (SHINGRIX) (1 of 2) 1981 Medicare Wellness Visit 1996 Osteoporosis Screening 1996 PNEUMOCOCCAL VACCINES 65+ (1 of 1 - PPSV23) 1996 INFLUENZA VACCINE (#1) 2020 Depression Screening 09/17/2020 09/17/2019 documented as of this encounter Implants Implanted Type Area Telephone Answering Service Operator Device Identifier Shelf Exp iration Model / Serial Date / Lot Stent STENT documented as of this encounter Results Not on filedocumented in this encounter Visit Diagnoses Diagnosis 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 Medicare A & B t 2 [id number] [place] [id number] [employer] [facility] [id number] 2012-Mimi PPO OF [place] t documented as of this encounter
--- OUTSIDE RECORDS SUMMARY | 2020-05-14 14:24 | XMS REPORT | Summary of Care ---
:1930 Author Organization [facility] Unified [employer] [facility] Address [address] [place] [address] Care Team Providers Name Role Phone Gilberto Mortensen MD Primary Care Provider Reason for Visit Reason Comments Rx Concern/Question Encounter Details Date Type Department Care Team Description 05/01/2020 Telephone [facility] [place] Family Maksim Mortensen Rx Conc han/Question Medicine - Lakisha Macias MD [address] [place] [address] Dr avina [address] [place] [address] [place] [address] [place] [address] [phone] Allergies Active Allergy Reactions Severity Noted Date [...] Essential hypertension 07/24/2019 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 Or is there something else you can give her ? elephone Encounter - Letitia Joyce - 05/01/2020 1:01 PM CDTPatient child Donta is calling and is requesting to speak to the nurse in regards to patient medication gabapentin, please call Donta back in regards to this encounter. documented [...] of this encounter Implants Implanted Type Area Rayon Winder Device Identifier Shelf Exp iration Model / Serial Date / Lot Stent STENT documented as of this encounter Results Not on filedocumented in this encounter Insurance Payer Benefit Plan / Subscriber ID Effective Dates Phone Addre ss Type Group MEDICARE MEDICARE PART [id number] 1996-Mimi [phone] [address] Medicare A & B t 2 [id number] [place] [id number] [employer]NA [employer] [id number] 2012-Mimi PPO [place] t documented as of this encounter
--- OUTSIDE RECORDS SUMMARY | 2020-05-14 14:25 | XMS REPORT | Summary of Care ---
:1930 Author Organization [facility] Address [address] [place] [address] Care Team Providers Name Role Phone Gilberto Mortensen MD Primary Care Provider Reason for Visit Reason Comments Assessment triage Encounter Details Date Type Department Care Team Description 05/12/2020 Telephone [facility] Family Maksim Mortensen ent (triage) Medicine - Lakisha Macias MD [address] [place] [address] Dr av[address] [place] [address] [place] [address] [place] [address] [phone] Allergies Active Allergy Reactions Severity Noted Date Comments Beta-Blockers Other - See comments 07/23/2019 "fast heart beat" (Beta-Adrenergic Blocking Agts) Clonidine Rash 07/23/2019 Doxycycline Hyclate Other - See comments 07/23/2019 "eye and arm problem" Latex Rash 05/10/2020 Levofloxacin Other - See comments 07/23/2019 "headac he" Clopidogrel Bisulfate Other - See comments 07/23/2019 "fast heart beat" documented as of this encounter (statuses as of 05/12/2020) Medications Medication Sig Dispensed Refills Start Date End Date Status apixaban (ELIQUIS) 2.5 Take 2.5 mg by 0 Active mg tablet mouth 2 (two) times daily. atorvastatin (LIPITOR) Take 40 mg by 0 Active 40 mg tablet mouth at bedtime. aspirin 81 mg chewable Take 81 mg by 0 Active tablet mouth daily. metoprolol tartrate 25 Take 12.5 mg by 0 Active mg tablet mouth 2 (two) times daily. omeprazole 40 mg Take 40 mg by 0 Active capsule mouth daily. cranberry fruit Take 1,000 mg by 0 Active concentrate (AZO mouth 2 (two) CRANBERRY ORAL) times daily. sennosides (SENNA) 8.6 Take 8.6 mg by 0 Active mg tablet mouth 2 (two) times daily. lactobacillus Take 1 tablet by 60 tablet 0 10/19/2019 Active acidophilus 25 million mouth 2 (two) cell -100 mg times daily. captabIndications: Chest pain, unspecified type gabapentin 100 mg Take 1 capsule 90 capsule 5 03/09/2020 Active capsuleIndications: by mouth 3 Neuropathy (three) times daily. Additional Information Patient taking differently: 100 mg Oral QHS, Informant: Plate Fitter, Reported on 05/11/2020 12:46 AM gabapentin 300 mg Take 1 capsule 90 capsule 5 05/04/2020 Active capsuleIndications: by mouth 3 Neuropathy (three) times daily. acetaminophen (TYLENOL EXTRA Take 1,000 mg by 0 Active STRENGTH) 500 mg tablet mouth 3 (three) times daily. acidophilus 100 million cell Take 1 tablet by 60 tablet 0 04/23 Active tabletIndications: Pneumonia mouth 2 (two) of left lung due to times daily. infectious organism, unspecified part of lung amoxicillin-pot clavulanate Take 10 mL 140 mL 0 05/11/2020 Active 250-62.5 mg/5 mL through enteral 0 suspensionIndications: tube 2 (two) Pneumonia of left lung due to times daily for infectious organism, 7 days. 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 documented as of this encounter Last Filed Vital Signs Not on filedocumented in this encounter Miscellaneous Notes Telephone Encounter - Carlyn Salazar - 05/12/2020 10:09 AM CDTCall was transferred to nh for triage Spoke with Armida from [facility] that was out at the home And was informing us that the patient is in severe pain and crying pain has increased all over mostly to lower extermities Pain is 05/[address] Mortensen he advised for patient to go to ER informed armida she will advise patients family of the recommendations. elephone Encounter - Ruma Escamilla - 05/12/2020 9:39 AM CDTMICHELLE with [facility] is currently with patient and stating patient is in severe pain in the entire body. Per Armida worse in the lower extremities. MARIO Bell took triage to pass to nurse. documented in this encounter Plan of Treatment Health Maintenance Due Date Last Done Comments DTaP,Tdap,and Td Vaccines (1 - Tdap) 1950 Zoster Recombinant Vaccine (SHINGRIX) (1 of 2) 1981 Medicare Wellness Visit 1996 Osteoporosis Screening 1996 PNEUMOCOCCAL VACCINES 65+ (1 of 1 - PPSV23) 1996 INFLUENZA VACCINE (#1) 2020 Depression Screening 09/17/2020 09/17/2019 documented as of this encounter Implants Implanted Type Area Stone Setter Device Identifier Shelf Exp iration Model / Serial Date / Lot Stent STENT documented as of this encounter Results Not on filedocumented in this encounter Insurance Payer Benefit Plan / Subscriber ID Effective Dates Phone Addre ss Type Group MEDICARE MEDICARE PART [id number] 1996-Mimi [phone] [address] Medicare A & B t 2 [id number] [place] [id number] [facility] [id number] 2012-Mimi PPO OF [place] t documented as of this encounter
--- OUTSIDE RECORDS SUMMARY | 2020-05-14 14:25 | XMS REPORT | Summary of Care ---
:1930 Author Organization [facility] [email or web address] [facility] Address [address] [place] [address] Care Team Providers Name Role Phone Gilberto Mortensen MD Primary Care Provider Reason for Visit Reason Comments Rx Concern/Question Encounter Details Date Type Department Care Team Description 05/13/2020 Telephone [facility] [place] Family Maksim Mortensen Rx Conc han/Question Medicine - Lakisha Macias MD [address] [place] [address] Dr av[address] [place] [address] [place] [address] [place] [address] [phone] Allergies Active Allergy Reactions Severity Noted Date Comments Beta-Blockers Other - See comments 07/23/2019 "fast heart beat" (Beta-Adrenergic Blocking Agts) Clonidine Rash 07/23/2019 Doxycycline Hyclate Other - See comments 07/23/2019 "eye and arm problem" Latex Rash 05/10/2020 Levofloxacin Other - See comments 07/23/2019 "headac he" Clopidogrel Bisulfate Other - See comments 07/23/2019 "fast heart beat" documented as of this encounter (statuses as of 05/13/2020) Medications Medication Sig Dispensed Refills Start Date [...] taking differently: 100 mg Oral QHS, Informant: Director Advanced, Reported on 05/11/2020 12:46 AM gabapentin 300 [...] as of this encounter (statuses as of 05/13/2020) Active Problems Problem Noted Date AMS (altered mental status) 05/10/2020 Dysphagia 10/19/2019 Chest pain 10/18/2019 Chronic a-fib 07/24/2019 Essential hypertension 07/24/2019 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 Dyslipidemia 07/24/2019 History of CVA (cerebrovascular accident) 07/24/2019 Elevated brain natriuretic peptide (BNP) level 020 Atypical chest pain 07/23/2019 documented as of this encounter (statuses as of 05/13/2020) Social History Tobacco Use Types Packs/Day Years [...] Notes Telephone Encounter - Carlyn Salazar - 05/13/2020 1:22 PM CDTCalled and spoke with the son all questioned answered elephone Encounter - Letitia Joyce - 05/13/2020 9:17 AM CDTSOP is calling and is requesting to speak to the nurse in regards to being adviced on what to tell the ER when taking the patient in, please call SOP back in regards to this [...] of this encounter Implants Implanted Type Area Cuff Presser Device Identifier Shelf Exp iration Model / Serial Date / Lot Stent STENT documented as of this encounter Results Not on filedocumented in this encounter Insurance Payer Benefit Plan / Subscriber ID Effective Dates Phone Addre ss Type Group MEDICARE MEDICARE PART [id number] 1996-Mimi [phone] [address] Medicare A & B t 2 [id number] [place] [id number] [employer] [facility] [id number] 2012-Mimi PPO OF [place] t documented as of this encounter
--- OUTSIDE RECORDS SUMMARY | 2020-05-14 14:25 | XMS REPORT | Summary of Care ---
:1930 Author Organization [facility] Address [address] [place] [address] Care Team Providers Name Role Phone Gilberto Mortensen MD Primary Care Provider Reason for Visit Reason Comments Transition Of Care Encounter Details Date Type Department Care Team Description 05/13/2020 Transition of Care Critical access hospital Sylvia Varela Transition Of Care [facility] RN [phone] Allergies Active Allergy Reactions Severity Noted Date [...] taking differently: 100 mg Oral QHS, Informant: [place], Reported on 05/11/2020 12:46 AM gabapentin 300 [...] Essential hypertension 07/24/2019 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, ADC MED SURG. She was discharged on 05/11/20 with discharge disposition of HR- RoutineDischarge. Admitting Physician: Katy Rossi Discharge Diagnosis: Altered mental status HOSPITAL COURSE: Toxic encephalopathy Likely 2/2 UTI and dehydration. Takes lasix. Hx of CVA. Lives at home with daughter. Bed-ridden, L hemiparesis, has PEG tube just for supplemental feeds and meds, tolerates po. Improved with IV ceftriaxone Daughter wished to take the patient home prior to culture result. Given absence of sepsis and rapid return to baseline, will discharge on po Augmentin course based on previous urine sensitivities. Chronic diastolic CHF Has not had edema per daughter. Recommended holding lasix given severe dehydration. Will f/u with Dr. Mcmillan. Bella catheter placed on admission then discontinued prior to discharge Linked Episodes Type: Episode: Status: Noted: Resolved: Last update: Updated by: TRANSITION OF CARE tcm Active 05/11/2020 05/13/2020 9:43 AM Sylvia Varela, AISHA Comments: TCM [id number] outreach documentation: Discharge Assessment Chart Assessed: 05/13/20 TCM Outreach Completed: 05/13/20 Do you have a few minutes to speak with me about how you are doing at home?: Yes(i spoke with son. he states his mother has been in a lot of pain since discharge and they have been unable to help her at home. family has contacted PCP and pcp directed family to take her to the local ER on 05/12/2020.) Discharge Instructions Do you understand your at-home instructions?: Yes Medications Have you filled your prescriptions and do you have them in your home? : Yes Do you know how to take your medications?: Yes Supplies Did you receive applicable home medical supplies/equipment?: N/A Follow Up Appointment Has a follow up appointment been scheduled?: No May I assist with scheduling this appointment?: Patient declined assistance(son states that she has an outside cardiology MD. i asked if they would like to have a pcp follow-up since they seem hesitantto take her to the ER (pain issues for 2 days and tell me they'll take her to ER tomorrow). states they will contact pcp.) Do you have any questions about your follow up appointments?: No Are you able to get to your appointment? Who will be taking you?: Yes(family) Home Health Assistance Has the home health nurse contacted you since you've been home?: N/A Future Appointments: documented in this encounter Plan of Treatment Health Maintenance Due Date Last Done Comments DTaP,Tdap,and Td Vaccines (1 - Tdap) 1950 Zoster Recombinant Vaccine (SHINGRIX) (1 of 2) 1981 Medicare Wellness Visit 1996 Osteoporosis Screening 1996 PNEUMOCOCCAL VACCINES 65+ (1 of 1 - PPSV23) 1996 INFLUENZA VACCINE (#1) 2020 Depression Screening 09/17/2020 09/17/2019 documented as of this encounter Implants Implanted Type Area Language Arts Teacher Device Identifier Shelf Exp iration Model / Serial Date / Lot Stent STENT documented as of this encounter Results Not on filedocumented in this encounter Insurance Payer Benefit Plan / Subscriber ID Effective Dates Phone Addre ss Type Group MEDICARE MEDICARE PART [id number] 1996-Mimi [phone] [address] Medicare A & B t 2 [id number] [place] [id number] [employer] [id number] 2012-Mimi PPO OF [place] t documented as of this encounter
--- OUTSIDE RECORDS SUMMARY | 2020-05-14 14:25 | XMS REPORT | Summary of Care ---
:1930 Author Organization [facility] - [facility] Address [address] [place] [id number] Care Team Providers Name Role Phone Gilberto Mortensen MD Primary Care Provider Reason for Referral MRI/CAT Scan (STAT) Status Reason Specialty Diagnoses / Referred By Referred To Procedures Contact Contact New Request Diagnostic Diagnoses Altered mental status, unspecified altered mental status type Eliezer Plascencia Radiology Procedures CT HEAD WO CONTRAST MD Kalpesh [address] [place] [address] Radiology Services (STAT) Status Reason Specialty Diagnoses / Referred By Referred To Procedures Contact Contact New Request Diagnostic Diagnoses Altered mental status, unspecified altered mental status type Eliezer Plascencia Radiology Procedures XR CHEST 1 SYLVIA Posey MD [address] [place] [address] Reason for Visit Reason Comments Altered mental status Auth/Cert Status Reason Specialty Diagnoses / Referred By Referred To Procedures Contact Contact Emergency Medicine [facility] Dept [address] [place] [address] Fax: Encounter Details Date Type Department Care Team Description 05/10/2020 - Hospital ADC Medicine Eliezer Plascencia MD [address] [place] [address] [phone] AMS (altered mental 05/11/2020 Encounter Surgery Unit Katy Rossi MD [address] [place] [address]. [place] [address] [phone] status) [address] [place] [address] [place] [address] Allergies Active Allergy Reactions Severity Noted Date Comments Beta-Blockers Other - See comments 07/23/2019 "fast heart beat" (Beta-Adrenergic Blocking Agts) Clonidine Rash 07/23/2019 Doxycycline Hyclate Other - See comments 07/23/2019 "eye and arm problem" Latex Rash 05/10/2020 Levofloxacin Other - See comments 07/23/2019 "headac he" Clopidogrel Bisulfate Other - See comments 07/23/2019 "fast heart beat" documented as of this encounter (statuses as of 05/11/2020) Medications Medication Sig Dispensed Refills Start Date [...] taking differently: 100 mg Oral QHS, 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 acetaminophen (TYLENOL Take 1,000 mg 0 Active EXTRA STRENGTH) 500 mg by mouth 3 tablet (three) times daily. acidophilus 100 million Take 1 tablet 60 tablet 0 05/11/2020 Active cell tabletIndications: by mouth 2 Pneumonia of left lung (two) times due to infectious daily. organism, unspecified part of lung amoxicillin-pot Take 10 mL 140 mL 0 05/11/202005/18 Ac tive clavulanate 250-62.5 mg/5 0 mL suspensionIndications: enteral tube 2 Pneumonia of left lung (two) times due to infectious daily for 7 organism, unspecified days. part of lung acetaminophen (TYLENOL Take 650 mg by 0 Discontinued ORAL) mouth (Patient (three) times Report ed) daily. lisinopril 10 mg tablet Take 5 mg by 0 Discontinued mouth daily. (Patien t Reported) mupirocin 2 % Apply to 22 g 5 10/30/201905/11 Disco ntinued ointmentIndications: area(s) (Patient Pressure injury of left (two) times Reported) heel, stage 1 daily. DICLOFENAC SODIUM 1 % APPLY TO 1 Tube 4 12/30/201905/11 Discontinued gelIndications: AFFECTED (Pat ient Neuropathy AREA(S) 2GMS Report ed) DAILY hydrocortisone Insert into 30 g 0 02/10/202005/11 D iscontinued (PROCTOZONE-HC) 2.5 % rectum (two) (Patient rectal creamIndications: times daily. Reported) Hemorrhoids, unspecified hemorrhoid type furosemide 20 mg tablet Take 20 mg by 0 Discontinued mouth daily. potassium chloride 40 Take 40 mEq by 0 Discontinued mEq/15 mL solution mouth daily. 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 Dyslipidemia 07/24/2019 History of CVA (cerebrovascular accident) 07/24/2019 Elevated brain natriuretic peptide (BNP) level 020 Atypical chest pain 07/23/2019 documented as of this encounter (statuses as of 05/11/2020) Social History Tobacco Use Types Packs/Day Years [...] of this encounter Last Filed Vital Signs Vital Sign Reading Time Taken Comments Blood Pressure 156/89 05/11/2020 12:15 PM CDT Pulse 67 05/11/2020 12:15 PM CDT Temperature 36.7 C (98.1 F) 05/11/2020 12:15 PM CDT Respiratory Rate 18 05/11/2020 12:15 PM CDT Oxygen Saturation 96% 05/11/2020 12:15 PM CDT Inhaled Oxygen Concentration - - Weight 47.5 kg (104 lb 11.2 oz) 05/11/2020 3:28 AM CDT Height 152.4 cm (5') 05/11/2020 2:06 AM CDT Body Mass Index 20.45 05/11/2020 2:06 AM CDT documented in this encounter Discharge Instructions InstructionsCoShannan hopkins RN - 05/11/2020 Patient Discharge Instructions Discharge date: 05/11/2020 Procedure(s): Discharge Orders Regular Diet; Texture: Regular. Texture Regular. Diabetic: No Discharge Condition - Discharge Condition: FAIR Discharge Activity Discharge Activity: As Tolerated VTE Propylaxis- Was ordered during hospitalization Discharge Instructions Order Comments: We recommend holding lasix and potassium for dehydration and following up with Dr. Mcmillan in 1-2 weeks. We prescribed an antibiotic (Augmentin) for urinary tract infection and possible pneumonia. Follow instructions as indicated below: 1. The medication that was used will be acting in your system for the next 24 hours, so you might feel a little drowsy, with impaired judgment and or motor function. This feeling should go wear off. Because the medication is still in your system for the next 24 hours you SHOULD NOT: Drive a car, operate machinery or power tool. Drink any alcohol beverages (including beer or wine). Make any important decisions or sign any legal documents. 2. You should rest the remainder of the day and not engage in any physical activity. Move slowly today. After lying down, sit on the edge of the bed for a moment before standing. YOU ARE RESPONSIBLEFOR HAVING SOMEONE AT HOME WITH YOU DURING THE AFTERNOON AND NIGHT IMMEDIATELY FOLLOWING YOUR SURGERY. Patient should cough and deep breathe every 2-4 hours while awake to avoid respiratory complications. 4. Lifting: {IP DISCHARGE INSTRUCTIONS LIFTIN::"No medical restrictions"} 5. Weight: In general, sudden weight gains or losses should be reported to your provider. Cardiac patients should weigh daily and notify their provider for a weight gain of 3 pounds per day or 5 pounds per week. 6. Tobacco Avoidance: Follow recommendations below 7. Because the medications used could procedure some residual nausea and vomiting after you go home,you should eat lightly today, starting with clear liquids (broth, soft drinks, apple juice, jello) and toast or crackers, progressing to bland solid foods and then to your normal diet as tolerated, unle ss otherwise stated by your surgeon. If you get sick, wait a couple of hours and then begin to eat. After 24 hours the nausea should be gone. 8. You may experience some pain and your physician will advise you on what to take for discomfort. This should be taken as directed. If the pain is not relieved, contact your physician. You may alsohave a sore throat from the airway that was in place. You may uses lozenges, throat spray (such as C hloraseptic), or warm salt water gargles for symptomatic relief. 9. If you feel warm, take your temperature. If it is 101 degrees or above call your physician. 10. If you are unable to urinate within five hours after your procedure, call your physician. 11. The type of surgery performed will determine how much bleeding (if any) to expect. Normally, some spotting might occur. If your dressing pad becomes saturated, notify your physician. Elevate surgical site, if applicable, to reduced swelling and pain. 12. Wound/dressing care: Tips on preventing a surgical site infection.. Dont smoke. It is best to quit at least 30 days before surgery, but quitting after surgery is also helpful. If you are diabetic, keep your blood sugar well controlled. WASH YOUR HANDS. Keep your wound clean and remember to wash your hands before and after contact with the area. All health care workers should also wash their hands or use an alcohol based hand rub prior to examining you. If antibiotics are prescribed, take them as directed. Finish the entire course of antibiotics. Call your doctor if you have signs of infection: ? Increased tenderness at the surgical site ? Red streaks or increased redness of the area ? Bad-smelling discharge from the incision ? Fever of 101F or higher ? General tired feeling that doesnt improve 13. Other discharge instructions: {DC IP DISCHARGE INSTRUCTIONS OTHER:02904} 14. Special Instructions: Take Home Medications These are medications ordered for you by your healthcare provider. Do not take any other medications or supplements unless advised by your healthcare provider. Current Discharge Medication List START taking these medications Details acidophilus 100 million cell tablet Take 1 tablet by mouth 2 (two) times daily. Qty: 60 tablet, Refills: 0 Associated Diagnoses: Pneumonia of left lung due to infectious organism, unspecified part of lung amoxicillin-pot clavulanate 250-62.5 mg/5 mL suspension Take 10 mL through enteral tube 2 (two) times daily for 7 days. Qty: 140 mL, Refills: 0 Associated Diagnoses: Pneumonia of left lung due to infectious organism, unspecified part of lung CONTINUE these medications which have NOT CHANGED Details acetaminophen (TYLENOL EXTRA STRENGTH) 500 mg tablet Take 1,000 mg by mouth 3 (three) times daily. !! gabapentin 300 mg capsule Take 1 capsule by mouth 3 (three) times daily. Qty: 90 capsule, Refills: 5 Associated Diagnoses: Neuropathy !! gabapentin 100 mg capsule Take 1 capsule by mouth 3 (three) times daily. Qty: 90 capsule, Refills: 5 Associated Diagnoses: Neuropathy lactobacillus acidophilus 25 million cell -100 mg captab Take 1 tablet by mouth 2 (two) times daily. Qty: 60 tablet, Refills: 0 Associated Diagnoses: Chest pain, unspecified type cranberry fruit concentrate (AZO CRANBERRY ORAL) Take 1,000 mg by mouth 2 (two) times daily. sennosides (SENNA) 8.6 mg tablet Take 8.6 mg by mouth 2 (two) times daily. metoprolol tartrate 25 mg tablet Take 12.5 mg by mouth 2 (two) times daily. omeprazole 40 mg capsule Take 40 mg by mouth daily. apixaban (ELIQUIS) 2.5 mg tablet Take 2.5 mg by mouth 2 (two) times daily. aspirin 81 mg chewable tablet Take 81 mg by mouth daily. atorvastatin (LIPITOR) 40 mg tablet Take 40 mg by mouth at bedtime. !! - Potential duplicate medications found. Please discuss with provider. STOP taking these medications furosemide 20 mg tablet Comments: Reason for Stopping: potassium chloride 40 mEq/15 mL solution Comments: Reason for Stopping: Follow-up appointments: Your follow up appointment with your surgeon has been made. Appointment Date: , Appointment Time . For questions regarding follow-up instructions call the [facility] Hotline at or If you experience any of the following symptoms , please follow up with . For worsening symptoms/changing condition/problems or questions: Non-emergency/urgent: Call the [facility] Hotline at or or Emergency: Go to the closest emergency room or call 242 Translated by Date Time If you receive the patient satisfaction survey by mail please complete and return and let us know how we are doing. TOBACCO AVOIDANCE Exposure to tobacco either from smoking or from second hand (environmental) smoke or smokeless tobacco (snuff) is damaging to your health. This information is to encourage everyone to avoid tobacco exposure. It is recommended that you: ? If you smoke or use smokeless tobacco, we encourage you to quit. ? If you have already quit smoking, continue your good work! ? If you do not smoke or use smokeless tobacco, do not start. ? Avoid secondhand smoke. Additional Resources You may want to contact these organizations for further information on smoking and how to quit. [place] [employer], http://www.lungusa.org/stop-smoking/ [place] [employer], http://www.cancer.org/Healthy/StayAwayfromTobacco/index [place] [employer], http://www.heart.org/HEARTORG/GettingHealthy/QuitSmoking/Quit-Smoking_[facility] _001085_SubHomePage.jsp AttachmentsThe following attachments cannot be sent through Care Everywhere. Adult, Pneumonia (E[place]ian)Bladder Infection, Female (Adult) (E[place]ian) Amoxicillin; Clavulanic Acid tablets (E[place]ian)Lactobacillus Oral formulations (E[place]ian)documented in this encounter H&P Notes Katy Rossi MD - 05/10/2020 11:16 PM CDT MEDICINE ADC ADMIT H&P Date of Service: 05/10/2020 CHIEF COMPLAINT: altered mental status History of Present Illness 89 year-old female with pmh of CVA (mild cognitive deficit,slurry speech, left sided weakness, dysphagia s/p PEG tube), HLD, HTN, CAD, mostly bed bound with limited movement who presents to the ED secondary to AMS. Given her being altered, have gotten history from previous reports as well as daughter in the bedside. It appears that patient has been having insomnia the past few days. At 3 pm, son could not get patient to stay awake. Daughter noticed that the patient was more lethargic this evening. Does not have a history of cough. Patient's daughter noticed that patient has been having malodorous urine lately. 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 Hyperlipidemia Hypertension [place] (myocardial infarction) Past Surgical History: Procedure Laterality Date DENISE BLADDER SUSPENSION EYE SURGERY HYSTERECTOMY KNEE SCOPE,CLEAN/DRAIN Bilateral Past Family History Noncontributory ALLERGIES Allergies Allergen Reactions Beta-Blockers (Beta-Adrenergic Blocking Agts) Other - See comments "fast heart beat" Clonidine Rash Doxycycline Hyclate Other - See comments "eye and arm problem" Levaquin [Levofloxacin] Other - See comments "headache" Plavix [Clopidogrel Bisulfate] Other - See comments "fast heart beat" MEDICATIONS No current facility-administered medications on file prior to encounter. Current Outpatient Medications on File Prior to Encounter Medication Sig Dispense Refill gabapentin 300 mg capsule Take 1 capsule by mouth 3 (three) times daily. 90 capsule 5 gabapentin 100 mg capsule Take 1 capsule by mouth 3 (three) times daily. 90 capsule 5 hydrocortisone (PROCTOZONE-HC) 2.5 % rectal cream Insert into rectum 2 (two) times daily. 30 g 0 DICLOFENAC SODIUM 1 % gel APPLY TO AFFECTED AREA(S) 2GMS DAILY 1 Tube 4 mupirocin 2 % ointment Apply to area(s) 2 (two) times daily. 22 g 5 lactobacillus acidophilus 25 million cell -100 mg captab Take 1 tablet by mouth 2 (two) times daily. 60 tablet 0 cranberry fruit concentrate (AZO CRANBERRY ORAL) Take 1,000 mg by mouth 2 (two) times daily. lisinopril 10 mg tablet Take 5 mg by mouth daily. sennosides (SENNA) 8.6 mg tablet Take 8.6 mg by mouth daily. metoprolol tartrate 25 mg tablet Take 12.5 mg by mouth 2 (two) times daily. omeprazole 40 mg capsule Take 40 mg by mouth. acetaminophen (TYLENOL ORAL) Take 650 mg by mouth 3 (three) times daily. apixaban (ELIQUIS) 2.5 mg tablet Take 2.5 mg by mouth 2 (two) times daily. aspirin 81 mg chewable tablet Take 81 mg by mouth daily. atorvastatin (LIPITOR) 40 mg tablet Take 40 mg by mouth at bedtime. SOCIAL HISTORY Social History Socioeconomic History Marital status: Spouse name: Not on file Number of children: Not on file Years of education: Not on file Highest education level: Not on file Occupational History Not on file Social Needs Financial resource strain: Not on file Food insecurity Worry: Not on file Inability: Not on file Transportation needs Medical: Not on file Non-medical: Not on file Tobacco Use Smoking status: Never Smoker Smokeless tobacco: Never Used Substance and Sexual Activity Alcohol use: Never Frequency: Never Drug use: Never Sexual activity: Not Currently Lifestyle Physical activity Days per week: Not on file Minutes per session: Not on file Stress: Not on file Relationships Social connections Talks on phone: Not on file Gets together: Not on file Attends pentecostalism service: Not on file Active member of club or organization: Not on file Attends meetings of clubs or organizations: Not on file Relationship status: Not on file Intimate partner violence Fear of current or ex partner: Not on file Emotionally abused: Not on file Physically abused: Not on file Forced sexual activity: Not on file Other Topics Concern Not on file 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 She appears well- developed and well-nourished. No distress. HENT: Head: Normocephalic and atraumatic. Right Ear: External ear normal. Left Ear: External ear normal. Eyes: Pupils are equal, round, and reactive to light. Conjunctivae and EOM are normal. Right eye exhibits no discharge. Left eye exhibits no discharge. No scleral icterus. Neck: Normal range of motion. Cardiovascular: Normal rate and regular rhythm. Pulmonary/Chest: Effort normal. No respiratory distress. She exhibits no tenderness. Abdominal: Soft. There is no abdominal tenderness. There is no guarding. Mid-quadrant PEG tube in place Musculoskeletal: Normal range of motion. General: No edema. Neurological: She is alert and oriented to person, place, and time. Skin: Skin is warm and dry. No rash noted. No erythema. No pallor. Psychiatric: She has a normal mood and affect. Her behavior is normal. Judgment and thought content normal. LABS - reviewed pertinent labs as below: Reviewed IMAGING - reviewed, pertinent results as below: CT HEAD WO CONTRAST HISTORY: Altered mental status (AMS), unclear cause COMPARISON: None. TECHNIQUE: Axial CT of the head was performed and reconstructed at 5 mm intervals. Coronal and sagittal reformatted images were generated. FINDINGS: The lateral and third ventricles are prominent likely reflecting ex vacuo dilatation. No hydrocephalus, midline shift or pathological extra-axial fluid collection is present. The basal cisterns are unremarkable. 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 Smaller, chronic infarcts are noted in the left insula and left inferior cerebellum. Scattered patchy subcortical and periventricular white matter hypodensities are nonspecific but can be seen in setting of chronic microvascular ischemic changes. No acute hemorrhage or extra-axial collection. The calvarium and skull base are intact. The paranasal sinuses and mastoid air cells are clear. IMPRESSION Large, chronic right MCA/CAMILO territory and smaller chronic infarcts in the left insula and left inferior cerebellar hemisphere No acute intracranial abnormality Preliminary Report Dictated by Resident: Damion Graham I, Homer Chandler MD., have reviewed this study and agree with the above report. PROCEDURE: XR CHEST 1 VW CLINICAL INDICATION: AMS TECHNIQUE: Frontal chest radiograph was obtained. COMPARISON: CT chest 10/18/2019. FINDINGS: Hyperinflated lungs. Left retrocardiac patchy airspace opacity. No pleural effusion or pneumothorax is seen. The cardiac silhouette is enlarged. Aortic arch calcifications. No acute bony abnormality is noted. Inferior subluxation of the left humeral head in respect to the glenoid is unchanged. IMPRESSION Left retrocardiac airspace opacity, pneumonia versus atelectasis. Preliminary Report Dictated by Resident: Damion Graham I, Colin Dennis MD., have reviewed this study and agree with the above report. ASSESSMENT/PLAN Danica Murdock is a 89 year old female with PMH as listed above, admitted to the hospital with: 1. AMS (altered mental status): likely due to metabolic encephalopathy (eg, acute cystitis, possible pneumonia). CT Head is negative. -- Will treat underlying conditoin 2. Acute cystitis: -- Will continue with antibiotics -- Urine report is pending 3. Possible Pneumonia - based on imaging -- On antibiotics -- Urinary legionella, pneumococcal antigen, procalcitonin is pending. 4. HTN: controlled Prophylaxis: DVT- enoxaparin Code Status: addressed: FC Estimated LOS: This inpatient admission will likely require greater than or equal to 2 Midnights. Management is not feasible as an outpatient and there is concern for adverse outcomes if not managed in an inpatient setting. Advance care planning discussed for 25 mins with daughter at bedside. Surrogate decision maker: Donta Murdock (child) - documented in this encounter Consult Notes Cathy Landry SLP - 05/11/2020 12:01 PM CDTAssociated Order(s): CONSULT SPEECH Speech-Language Pathology Clinical Swallow Evaluation 05/11/2020 Danica Murdock : 1930 Age: [age] year old Sex: female Referring Physician: Felton Vu MD Date of Referral: 05/11/2020 Reason for Referral: dysphagia Date of Admission/Onset: 05/10/2020 Time IN/OUT: [id number] SUBJECTIVE: Patient was awake with daughter at bedside. Per daughter, patient uses PEG tube for medications, butuses PO intake for nutrition and hydration. At home, patient is on mechanical soft diet with thin liquids. OBJECTIVE: is being seen for a clinical swallow evaluation. Danica Murdock is a 89 year old femaleadmitted for AMS with PMH significant for CVA (mild cognitive deficit, slurry speech, left sided weakness, dysphagia s/p PEG tube), HLD, HTN, CAD, mostly bed bound . Pertinent Imaging: Xr Chest 1 Vw Result Date: 05/10/2020 Left retrocardiac airspace opacity, pneumonia versus atelectasis. Preliminary Report Dictated by Resident: Damion Graham I, Colin Dennis MD., have reviewed this study and agree with the above report. Ct Head Wo Contrast Result Date: 05/10/2020 Large, chronic right MCA/CAMILO territory and smaller chronic infarcts in the left insula and left inferior cerebellar hemisphere No acute intracranial abnormality Preliminary Report Dictated by Resident:Damion Graham I, Homer Chandler MD., have reviewed this study and agree with the above report. 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 Hyperlipidemia Hypertension [place] (myocardial infarction) Past Surgical History: Procedure Laterality Date DENISE BLADDER SUSPENSION EYE SURGERY HYSTERECTOMY KNEE SCOPE,CLEAN/DRAIN Bilateral General Behavior: Alert and Cooperative Hearing: Hard of hearing Oral Mechanism: Structure: dentate, moist oral mucosa and clean oral cavity Function: left facial droop/weakness, symmetric labial spread and pucker, lingual protrusion midline, decreased tongue lateralization on the right, symmetrical palatal retraction, dysphonia, no dysarthria, no apraxia and weak/incomplete labial seal Respiratory Status: room air Orientation/Cognition: - Patient oriented to: person and situation. Patient able to use external aids to orient to place and time - Response type: verbal - If verbal, describe speech: clear - Follows 1-step commands: Yes CLINICAL SWALLOW EVALUATION Current Diet Texture/Means of Nutrition: NPO Swallows on command: Yes Handles Secretions: Yes Volitional Cough: Yes Spontaneous Cough: Yes PO trials were administered by BORING MACHINE OPERATOR HELPER. Patient was provided with multiple bites/sips of ice chips, thinliquids, nectar-thick liquids, puree and chewable solid consistencies with the following observations: Oral Stage: Anterior leakage of bolus (left, trace) observed with puree Pocketing of bolus (left or right) not observed Subjectively Prolonged oral phase observed with ice chip, thin liquid, nectar thick liquids, puree and masticated material Oral residue (trace) observed with puree and masticated material Pharyngeal Stage: Subjectively reduced laryngeal elevation observed with ice chip, thin liquid, nectar thick liquids, puree and masticated material Coughing or throat clearing observed with ice chip and thin liquid Change in voice quality not observed Multiple swallows subjectively observed with puree and masticated material Respiratory sufficiency and coordination: WFL - no increased work of breathing and/or oxygen sats and respiratory rate remained stable Report of globus sensation: No 3 oz water challenge: failed Patient/Family/Staff education: Provided verbally. Discussed findings of evaluation, recommendationsand BORING MACHINE OPERATOR HELPER plan of care. Patient/family verbalized understanding and is in agreement with plan of care.RN and referring provider notified of findings and recommendations. Patient/Family goal: to go home ASSESSMENT/IMPRESSIONS: Danica Murdock presents with known history of dysphagia s/p CVA. Patient had weakened labial seal on L side, resulting in trace anterior spillage noted with purees. No pocketing was observed during trials, however, daughter reports that patient occasionally has pocketing during meals at home but will clear with cues. Patient was noted to have trace lingual stasis on L side with puree and masticatedmaterials. Patient presented with subjectively delayed swallow initiation and subjectively reduced laryngeal elevation with all materials. She was also noted to use multiple swallows with puree and masticated materials. Patient did present with immediate, dry cough following sips of thin liquids and ice chips. Patient's daughter reports that this occurs at baseline and that patient takes very small, single sips at home. Despite cough, patient WBC is WFL and she is afebrile. Family would like to continue with current diet. BORING MACHINE OPERATOR HELPER educated on aspiration si/sx and reducing risks. Prognosis is fair for safe po intake with adherence to swallow precautions due to above findings. RECOMMENDATIONS/GOALS: 1. Recommend patient continue a mechanical soft-textured diet with thin liquids and swallow precautions: full supervision with meals, sit fully upright/chair, small single sips/bites, ok to use straws,remain upright for 30 minutes after meals and provide medications via PEG 2. Recommend BORING MACHINE OPERATOR HELPER therapy 1-3x/wk for 15-45 min/session while in-house to address the following goals: Swallowing: - Patient will tolerate the safest, least restricted po diet texture without overt s/sx of aspiration or other negative effects on medical condition: - Family will participate in education re: aspiration risk and will verbalize precautions/signs with80% accuracy. Cathy Landry MS, [facility]-BORING MACHINE OPERATOR HELPER Speech-Language Pathologist Phone/Text # [phone] documented in this encounter ED Notes Vern Rod RN - 05/10/2020 8:23 PM CDTPatient arrived via [facility] for altered mental status. Patient is sleeping and not answering questions but will respond to pain. Family reports she was awake for 2 days straight and would not sleep and thinks she may be just tired. VS stable no apparent distress noted. Eliezer Obrien MD - 05/10/2020 8:18 PM CDT [facility] Emergency Department Note Patient Name: Danica Murdock Date of : 1930 89 year old female Treatment Room: TR9/TR9 Primary Care Physician: Maksim Mortensen Patient Escorted by: Self [9] Mode of Arrival: EMS - [facility] ([place]) [43] EMS Treatment Prior to ED Arrival: LANGUAGE THERAPIST treatment: IVF;Saline lock Travel and Exposure Screening: Symptoms Does patient have any of these symptoms?: (not recorded) Exposure Screening Has patient had contact with someone with a communicable disease in the last month?: (not recorded) Diseases exposed to:: (not recorded) Is Patient ?: (not recorded) Exposure Date: (not recorded) Chief Complaint: Chief Complaint Patient presents with Altered mental status History of Present Illness: Danica Murdock is a 89 year old female with numerous medical conditions as listed below who was brought to the ED for evaluation of AMS/Decreased responsiveness. According to daughter, patient has not bee sleeping for the past few days and this evening about 5:00 PM, she was more lethargic and did not respond to the family in her usual manner, hence ED visit. No fever reported. No N/V/D. No URI or UTI symptoms reported. No trauma or injury. Pt has had similar episodes in the past that were usuallyattributed to a UTI. 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 Alcohol Use Never. Frequency of alcohol consumption: Never Drug Use Never. Sexual Activity Not currently sexually active. Past Surgical History: Past Surgical History: Procedure Laterality Date DENISE BLADDER SUSPENSION EYE SURGERY HYSTERECTOMY KNEE SCOPE,CLEAN/DRAIN Bilateral Review of Systems: Review of Systems Constitutional: Positive for activity change, appetite change and fatigue. Negative for chills and fever. HENT: Negative. Negative for congestion, drooling and rhinorrhea. Eyes: Negative. Respiratory: Negative for cough and shortness of breath. Breasts: Negative. Cardiovascular: Negative. Gastrointestinal: Negative. Genitourinary: Negative. Musculoskeletal: Negative. Skin: Negative. Neurological: Positive for weakness. Negative for facial asymmetry. Psychiatric/Behavioral: Positive for sleep disturbance. Endocrine: Endocrine negative Physical Exam: ED Triage Vitals [05/10/202024] Weight 49.9 kg (110 lb) Actual or estimated Height BP (!) 121/105 Pulse 52 Resp 18 Temp 37.2 C (98.9 F) Temp src SpO2 97 % Measured on Physical Exam Constitutional: General: She is not in acute distress. Appearance: Normal appearance. She is well-developed and normal weight. She is not ill-appearing,toxic-appearing or diaphoretic. HENT: Head: Normocephalic and atraumatic. Right Ear: Tympanic membrane and external ear normal. Left Ear: Tympanic membrane and external ear normal. Nose: No congestion or rhinorrhea. Mouth/Throat: Mouth: Mucous membranes are moist. Pharynx: Oropharynx is clear. No oropharyngeal exudate. Eyes: General: No scleral icterus. Right eye: No discharge. Left eye: No discharge. Conjunctiva/sclera: Conjunctivae normal. Pupils: Pupils are equal, round, and reactive to light. Neck: Musculoskeletal: Normal range of motion and neck supple. Thyroid: No thyromegaly. Cardiovascular: Rate and Rhythm: Bradycardia present. Rhythm irregular. Pulses: Normal pulses. Heart sounds: Normal heart sounds. No murmur. Pulmonary: Effort: Pulmonary effort is normal. No respiratory distress. Breath sounds: Normal breath sounds. No stridor. No wheezing or rales. Chest: Chest wall: No tenderness. Abdominal: General: Bowel sounds are normal. There is no distension. Palpations: Abdomen is soft. There is no mass. Tenderness: There is no abdominal tenderness. There is no guarding or rebound. Comments: Feeding tube in situ Musculoskeletal: Normal range of motion. General: No tenderness or deformity. Lymphadenopathy: Cervical: No cervical adenopathy. Skin: General: Skin is warm and dry. Capillary Refill: Capillary refill takes less than 2 seconds. Neurological: Motor: Weakness present. No abnormal muscle tone. Coordination: Coordination normal. Comments: Unable to follow commands Protecting own airways Radiology: Hospital Encounter on 05/10/20 CT HEAD WO CONTRAST Narrative CT HEAD WO CONTRAST HISTORY: Altered mental status (AMS), unclear cause COMPARISON: None. TECHNIQUE: Axial CT of the head was performed and reconstructed at 5 mm intervals. Coronal and sagittal reformatted images were generated. FINDINGS: A large area of chronic encephalomalacia in the right MCA and CAMILO territory. A subcentimeter hypodensity in the bilateral hemipons, possibly age indeterminate infarcts. Scattered patchy subcortical and periventricular white matter hypodensities are nonspecific but can be seen in setting of chronic microvascular ischemic changes. No acute hemorrhage or extra-axial collection. The weaver-white matter differentiation is preserved. Enlarged lateral and third ventricles out of proportion to sulci are suggestive of central cerebral volume loss. The calvarium and skull base are intact. The paranasal sinuses and mastoid air cells are clear. Impression 1. No acute intracranial process. 2. Age-indeterminate subcentimeter hypodensities in the bilateral hemidiaphragms, possibly age indeterminate infarcts. 3. Right MCA and CAMILO territory chronic encephalomalacia. Preliminary Report Dictated by Resident: Damion Graham XR CHEST 1 VW Narrative PROCEDURE: XR CHEST 1 VW CLINICAL INDICATION: AMS TECHNIQUE: Frontal chest radiograph was obtained. COMPARISON: CT chest 10/18/2019. FINDINGS: Hyperinflated lungs. Left retrocardiac patchy airspace opacity. No pleural effusion or pneumothorax is seen. The cardiac silhouette is enlarged. Aortic arch calcifications. No acute bony abnormality is noted. Inferior subluxation of the left humeral head in respect to the glenoid is unchanged. Impression Left retrocardiac airspace opacity, pneumonia versus atelectasis. Preliminary Report Dictated by Resident: Damion Graham I, Colin Dennis MD., have reviewed this study and agree with the above report. Lab Results (24h): Recent Results (from the past 24 hour(s)) CBC WITH DIFF Collection Time: 05/10/20 8:46 PM Result Value Ref Range WBC 8.21 4.30 - 11.10 10*3/L RBC 2.94 (L) 3.93 - 5.25 10*6/L HGB 10.0 (L) 11.6 - 15.0 g/dL HCT 30.6 (L) 35.7 - 45.2 % MCV 104.1 (H) 80.6 - 95.5 fL MCH 34.0 (H) 25.9 - 32.8 pg MCHC 32.7 31.6 - 35.1 g/dL RDW-SD 53.0 (H) 39.0 - 49.9 fL RDW-CV 13.8 12.0 - 15.5 % PLT 265 166 - 358 10*3/L MPV 9.6 9.5 - 12.9 fL NRBC/100 WBC 0.0 0.0 - 10.0 /100 WBCs NRBC x10^3 <0.01 10*3/L GRAN MAT (NEUT) % 58.0 % IMM GRAN % 5.60 % LYMPH % 21.1 % MONO % 14.4 % EOS % 0.7 % BASO % 0.2 % GRAN MAT x10^3(ANC) 4.76 1.88 - 7.09 10*3/uL IMM GRAN x10^3 0.46 (H) 0.00 - 0.06 10*3/uL LYMPH x10^3 1.73 1.32 - 3.29 10*3/uL MONO x10^3 1.18 (H) 0.33 - 0.92 10*3/uL EOS x10^3 0.06 0.03 - 0.39 10*3/uL BASO x10^3 <0.03 0.01 - 0.07 10*3/uL COMP. METABOLIC PANEL (17591) Collection Time: 05/10/20 8:46 PM Result Value Ref Range NA 134 (L) 135 - 145 mmol/L K 4.8 3.5 - 5.0 mmol/L CL 102 98 - 108 mmol/L CO2 TOTAL 24 23 - 31 mmol/L AGAP 8 2 - 16 BUN 16 7 - 23 mg/dL GLUCOSE 89 70 - 110 mg/dL CREATININE 0.59 0.50 - 1.04 mg/dL TOTAL BILI 0.5 0.1 - 1.1 mg/dL CALCIUM 9.2 8.6 - 10.6 mg/dL T PROTEIN 6.9 6.3 - 8.2 g/dL ALBUMIN 3.5 3.5 - 5.0 g/dL ALK PHOS 100 34 - 122 U/L ALTv 8 5 - 35 U/L AST(SGOT) 19 13 - 40 U/L eGFR Calculation (Non-) 96.0 mL/min/1.73m2 eGFR Calculation () 116.3 mL/min/1.73m2 TROPONIN I Collection Time: 05/10/20 8:46 PM Result Value Ref Range TROPONIN I <0.012 <=0.034 ng/mL PROTHROMBIN TIME / INR Collection Time: 05/10/20 8:46 PM Result Value Ref Range PROTIME PATIENT 14.4 12.0 - 14.7 Seconds INR 1.2 URINALYSIS Collection Time: 05/10/20 8:46 PM Result Value Ref Range APPEARANCE Hazy (A) Clear COLOR Yellow Yellow PH 6.0 4.8 - 8.0 SP GRAVITY 1.013 1.003 - 1.030 GLU U QUAL Normal Normal BLOOD Negative Negative KETONES Negative Negative PROTEIN Negative Negative UROBILIN Normal Normal BILIRUBIN Negative Negative NITRITE Positive (A) Negative LEUK EDWARD 25/uL (A) Negative RBC/HPF 4 (H) 0 - 3 HPF WBC/HPF 2 0 - 5 HPF BACTERIA Few (A) Negative MUCOUS Slight (A) Negative LPF HYAL CAST 1 <=2 LPF Lactic Acid Whole Blood Collection Time: 05/10/20 8:48 PM Result Value Ref Range LACTIC ACID 1.53 mmol/L COVID-19 (ID NOW RAPID TESTING) Collection Time: 05/10/20 8:56 PM Specimen: NASOPHARYNGEAL SWAB Result Value Ref Range SARS-CoV-2 Rapid ID NOW Not Detected Not Detected EKG: interpreted by me Atrial Fibrillation, SVR Rate 44 Comparison with prior EKG: changed since prior EKG due to rate Orders and Treatments: Orders Placed This Encounter Procedures XR CHEST [address] HEAD WO CONTRAST CBC WITH DIFF COMP. METABOLIC PANEL (56494) TROPONIN I PROTHROMBIN TIME / INR COVID-19 (ID NOW RAPID TESTING) URINALYSIS Lactic Acid Whole Blood Lactic Acid Whole Blood BLOOD CULTURE SCREEN URINE CULTURE LAB ONLY COVID INTERPRETATION Nasal Cannula Orders Placed This Encounter Medications DISCONTD: azithromycin (ZITHROMAX) tablet 500 mg DISCONTD: cefTRIAXone (ROCEPHIN) 1,000 mg in NaCl 0.9% (NS) 50 mL MINI-BAG DISCONTD: azithromycin (ZITHROMAX) injection 500 mg cefTRIAXone (ROCEPHIN) 1,000 mg in NaCl 0.9% (NS) 50 mL MINI-BAG azithromycin (ZITHROMAX) 500 mg in NaCl 0.9% (NS) 250 mL ADD-VANTAGE ED COURSE MDM: Coding Scoring Tools: No data recorded Diagnosis/Impression: ICD-10-CM ICD-9-CM 1. Altered mental status, unspecified altered mental status type R41.82 780.97 2. Atrial fibrillation with slow ventricular response I48.91 427.31 3. Mild dehydration E86.0 276.51 4. Pneumonia of left lung due to infectious organism, unspecified part of lung J18.9 486 5. Chronic anemia D64.9 285.9 Disposition/Condition: ED Disposition ED Disposition Condition Comment Admit - Inpatient Fair Is this patient COVID positive or a patient under investigation (PUI)?: No Treatment Team: [facility] [[id number]] Primary reason for admission: AMS (altered mental status) [4082169] Secondary reason for admission: Pneumonia [252386] Is (or was) this a planned re-admission?: No My concerns are:: respiratory insufficiency My concerns are:: need for IV therapies My concerns are:: risk of mortality My concerns are:: risk of morbidity The risks to the patient are: morbidity or mortality in the marcus rt term Expected length of stay: At least 2 midnights Expected discharge disposition: Home Self Care Certification: I certify the inpatient services are medically necessary and in accordance with Medicare regulations. Discharge Medications: Patient's Medications START taking these medications No medications on file CONTINUE taking these medications which have NOT CHANGED ACETAMINOPHEN (TYLENOL ORAL) Take 650 mg by mouth 3 (three) times daily. APIXABAN (ELIQUIS) 2.5 MG TABLET Take 2.5 mg by mouth 2 (two) times daily. ASPIRIN 81 MG CHEWABLE TABLET Take 81 mg by mouth daily. ATORVASTATIN (LIPITOR) 40 MG TABLET Take 40 mg by mouth at bedtime. CRANBERRY FRUIT CONCENTRATE (AZO CRANBERRY ORAL) Take 1,000 mg by mouth 2 (two) times daily. DICLOFENAC SODIUM 1 % GEL APPLY TO AFFECTED AREA(S) 2GMS DAILY GABAPENTIN 100 MG CAPSULE Take 1 capsule by mouth 3 (three) times daily. GABAPENTIN 300 MG CAPSULE Take 1 capsule by mouth 3 (three) times daily. HYDROCORTISONE (PROCTOZONE-HC) 2.5 % RECTAL CREAM Insert into rectum 2 (two) times daily. LACTOBACILLUS ACIDOPHILUS 25 MILLION CELL -100 MG CAPTAB Take 1 tablet by mouth 2 (two) times daily. LISINOPRIL 10 MG TABLET Take 5 mg by mouth daily. METOPROLOL TARTRATE 25 MG TABLET Take 12.5 mg by mouth 2 (two) times daily. MUPIROCIN 2 % OINTMENT Apply to area(s) 2 (two) times daily. OMEPRAZOLE 40 MG CAPSULE Take 40 mg by mouth. SENNOSIDES (SENNA) 8.6 MG TABLET Take 8.6 mg by mouth daily. START taking Modified Medications as Prescribed No medications on file STOP taking these medications No medications on file Follow-up: Electronically signed by: Eliezer Plascencia MD 05/10/2020 10:13 PM documented in this encounter Miscellaneous Notes Care Plan - Shannan Marrufo RN - 05/11/2020 1:26 PM CDT Problem: Discharge Planning Goal: Absence of venous thromboembolism Outcome: Resolved Goal: Adequate for discharge Outcome: Resolved Goal: Effective communication Outcome: Resolved Problem: Falls, Risk of Goal: Absence of falls Outcome: Resolved Problem: Pain Goal: Control of pain at or below patient's documented comfort goal Outcome: Resolved Goal: Reduction in pain sensation Outcome: Resolved Problem: Skin integrity Impaired (Risk or Actual) Goal: Wound healing Outcome: Resolved Goal: Prevention of new skin breakdown Outcome: Resolved Problem: Infection Risk Goal: Absence of infection Outcome: Resolved Problem: Respiratory Function - Impaired Goal: Able to cough effectively Outcome: Resolved Goal: Adequate oxygenation Outcome: Resolved Goal: Adequate work of breathing Outcome: Resolved Goal: Patent airway Outcome: Resolved are Plan - Matheus Matias RN - 05/11/2020 2:26 AM CDT Problem: Discharge Planning Goal: Absence of venous thromboembolism Outcome: Progressing as expected Goal: Adequate for discharge Outcome: Progressing as expected Goal: Effective communication Outcome: Progressing as expected Problem: Falls, Risk of Goal: Absence of falls Outcome: Progressing as expected Problem: Pain Goal: Control of pain at or below patient's documented comfort goal Outcome: Progressing as expected Goal: Reduction in pain sensation Outcome: Progressing as expected Problem: Skin integrity Impaired (Risk or Actual) Goal: Wound healing Outcome: Progressing as expected Goal: Prevention of new skin breakdown Outcome: Progressing as expected Problem: Infection Risk Goal: Absence of infection Outcome: Progressing as expected Problem: Respiratory Function - Impaired Goal: Able to cough effectively Outcome: Progressing as expected Goal: Adequate oxygenation Outcome: Progressing as expected Goal: Adequate work of breathing Outcome: Progressing as expected Goal: Patent airway Outcome: Progressing as expected Nursing Note - Matheus Matias RN - 05/11/2020 12:46 AM CDTPatient lives at home with son/rn progressive care Donta DTR/caregiver Rosy lives next door per family, home medication list verified with Rosy, DTR reports that most meds are crushed and given via PEG tube,however patient can still take food/liquids/crushed meds PO, history of dysphagia and CVA reported by Rosy; DTR also reports patient does not like chicken or mashed potatoes, however likes baked potatoes and soft foods. D Nurse Note - Naseem Hawley RN - 05/10/2020 10:36 PM CDTReport given to Matheus LEONARD. D Nurse Note - Vern Rod RN - 05/10/2020 8:52 PM CDTDaughter at bedside reports "She has been sleepy all day today and this started about 3 o'clock and we got her in a wheelchair to eat at 5:30 but just would not wake up." documented in this encounter Plan of Treatment Name Type Priority Associated Diagnoses Date/Ti il BLOOD CULTURE SCREEN LAB STAT Altered mental statu s, 05/10/2020 8:46 PM unspecified altered CDT mental status type URINE CULTURE LAB STAT Altered mental status, 04/23 8:46 PM unspecified altered CDT mental status type LAB ONLY COVID LAB STAT Altered mental status, 8:56 PM INTERPRETATION unspecified altered CDT mental status type RESPIRATORY PANEL BY PCR LAB Routine 7:02 AM CDT PROCALCITONIN LAB Routine 05/11/2020 9: 18 AM CDT Name Type Priority Associated Diagnoses Order S chedule URINE CULTURE LAB Routine Altered mental status, ONCE for 1 Occurrences unspecified altered starting 05/10/2020 mental status type until LAB ONLY COVID LAB Routine Altered mental status, ONC E for 1 Occurrences INTERPRETATION unspecified altered starti ng 05/10/2020 mental status type until CBC with Differential LAB Routine EVERY MORNING AT 0400 for 5 Occurrenc es starting 2019 until 0, 1 completed Basic Metabolic Panel (NA, LAB Routine E VERY MORNING AT 0400 K, CL, CO2, GLUCOSE, BUN, fo r 5 Occurrences CREATININE, CA) starting until 0, 1 completed RESPIRATORY PANEL BY PCR LAB Routine ONC E for 1 Occurrences starting 2019 until 0 PROCALCITONIN LAB Routine ONCE for 1 Occ urrences starting 2019 until 0 Health Maintenance Due Date Last Done Comments DTaP,Tdap,and Td Vaccines (1 - Tdap) 1950 Zoster Recombinant Vaccine (SHINGRIX) (1 of 2) 1981 Medicare Wellness Visit 1996 Osteoporosis Screening 1996 PNEUMOCOCCAL VACCINES 65+ (1 of 1 - PPSV23) 1996 INFLUENZA VACCINE (#1) 2020 Depression Screening 09/17/2020 09/17/2019 documented as of this encounter Implants Implanted Type Area Hostage Negotiator Device Identifier Shelf Exp iration Model / Serial Date / Lot Stent STENT documented as of this encounter Procedures Procedure Name Priority Date/Time Associated Diagnosis Comme nts CBC WITH DIFF Routine 05/11/2020 9:18 Results fo r this AM CDT procedure are i n the results section. ACUTE CARE VENOUS Routine 05/11/2020 9:18 Result s for this BLOOD GAS AM CDT procedure are i n the results section. BASIC METABOLIC PANEL Routine 05/11/2020 9:18 Re sults for this (NA, K, CL, CO2, AM CDT procedure a re in GLUCOSE, BUN, the results CREATININE, CA) section. PNEUMOCOCCAL ANTIGEN Routine 05/11/2020 7:02 Res ults for this AM CDT procedure are i n the results section. [facility] Routine 05/11/2020 7:02 Resul ts for this ANTIGEN TST AM CDT procedure are i n the results section. XR CHEST 1 VW STAT 05/10/2020 9:03 Altered mental Results for this PM CDT status, unspecified procedur e are in altered mental the results status type section. COVID-19 (ID NOW STAT 05/10/2020 8:56 Altered mental Resul ts for this RAPID TESTING) PM CDT status, unspecified proced ure are in altered mental the results status type section. CT HEAD WO CONTRAST STAT 05/10/2020 8:54 Altered mental Re sults for this PM CDT status, unspecified procedur e are in altered mental the results status type section. LACTIC ACID WHOLE STAT 05/10/2020 8:48 Altered mental Resu lts for this BLOOD PM CDT status, unspecified procedur e are in altered mental the results status type section. URINALYSIS STAT 05/10/2020 8:46 Altered mental Results f or this PM CDT status, unspecified procedur e are in altered mental the results status type section. PROTHROMBIN TIME / STAT 05/10/2020 8:46 Altered mental Res ults for this INR PM CDT status, unspecified procedur e are in altered mental the results status type section. CBC WITH DIFF STAT 05/10/2020 8:46 Altered mental Results for this PM CDT status, unspecified procedur e are in altered mental the results status type section. COMP. METABOLIC PANEL STAT 05/10/2020 8:46 Altered mental Results for this (21956) PM CDT status, unspecified procedur e are in altered mental the results status type section. TROPONIN I STAT 05/10/2020 8:46 Altered mental Results f or this PM CDT status, unspecified procedur e are in altered mental the results status type section. BLOOD CULTURE SCREEN STAT 05/10/2020 8:46 Altered mental PM CDT status, unspecified altered mental status type EKG-12 LEAD Routine 05/10/2020 8:28 PM CDT documented in this encounter Results ACUTE CARE VENOUS BLOOD GAS (05/11/2020 9:18 AM CDT) [facility] Sig nature PH 7.41 7.32 - 7.42 [facility] PCO2 VALDEMAR 34 (L) 41 - 51 mmHg [facility] PO2 VALDEMAR 59 (HH) 25 - 40 mmHg [facility] HCO3 VALDEMAR 21 (L) 24 - 28 mEq/L [facility] AC VBE(BEAKER) -2.8 mEq/L [facility] Specimen Blood - VENOUS Performing Organization Address City/State/Zipcode Phone Number [facility] CLIA: [id number] [place] [address] Basic Metabolic Panel (NA, K, CL, CO2, GLUCOSE, BUN, CREATININE, CA) (05/11/2020 9:18 AM CDT) NA 137 135 - 145 [facility] mmol/L [facility] K 4.7 3.5 - 5.0 [facility] mmol/L [facility] CL 105 98 - 108 mmol/L [facility] CO2 TOTAL 23 23 - 31 mmol/L [facility] AGAP 9 2 - 16 [facility] BUN 14 7 - 23 mg/dL [facility] GLUCOSE 100 70 - 110 mg/dL [facility] CREATININE 0.44 (L) 0.50 - 1.04 [facility] mg/dL [facility] CALCIUM 9.4 8.6 - 10.6 [facility] mg/dL [facility] eGFR Calculation 134.6 mL/min/1.73m2 [facility] ([facility] [place] LABORATORY [place]) eGFR Calculation 163.2 mL/min/1.73m2 [facility] () [facility] LABORATORY Specimen Blood - VENOUS Narrative Performed At Association of Glomerular Filtration Rate (GFR) [facility] LABORATORY and Staging of Kidney Disease* + + +- + | GFR (mL/min/1.73 m2) | With Kidney Damage | Without Kidney Damage + + +- + | >90 | Stage one | Normal + + +- + | 60-89 | Stage two | Decreased GFR + + +- + | 30-59 | Stage three | Stage three + + +- + | 15-29 | Stage four | Stage four + + +- + | <15 (or dialysis) | Stage five | Stage five + + +- + *Each stage assumes the associated GFR level has been in effect for at least three months. Stages 1 to 5, with or without kidney disease, indicate chronic kidney disease. Notes: Determination of stages one and two (with eGFR >59mL/min/1.73 m2) requires estimation of kidney damage for at least three months as defined by structural or functional abnormalities of the kidney, manifested by either: Pathological abnormalities or Markers of kidney damage (including abnormalities in the composition of the blood or urine or abnormalities in imaging tests). Performing Organization Address City/State/Zipcode Phone Number [facility] CLIA: [id number] [place] [address] CBC with Differential (05/11/2020 9:18 AM CDT) WBC 10.03 4.30 - 11.10 [facility] 10*3/L [facility] LABORATORY RBC 3.28 (L) 3.93 - 5.25 [facility] 10*6/L [facility] LABORATORY HGB 11.1 (L) 11.6 - 15.0 [facility] g/dL [facility] LABORATORY HCT 33.8 (L) 35.7 - 45.2 % [facility] LABORATORY MCV 103.0 (H) 80.6 - 95.5 fL [facility] LABORATORY MCH 33.8 (H) 25.9 - 32.8 pg [facility] LABORATORY MCHC 32.8 31.6 - 35.1 [facility] g/dL [facility] LABORATORY RDW-SD 52.5 (H) 39.0 - 49.9 fL [facility] LABORATORY RDW-CV 14.0 12.0 - 15.5 % [facility] LABORATORY PLT 285 166 - 358 [facility] 10*3/L [facility] LABORATORY MPV 9.8 9.5 - 12.9 fL [facility] LABORATORY NRBC/100 WBC 0.0 0.0 - 10.0 [facility] /100 WBCs [facility] LABORATORY NRBC x10^3 <0.01 10*3/L [facility] LABORATORY GRAN MAT (NEUT) % 70.9 % [facility] LABORATORY IMM GRAN % 7.30 % [facility] LABOR[facility] LYMPH % 11.6 % [facility] LABORAT[facility] MONO % 9.9 % [facility] LABORAT[facility] EOS % 0.1 % [facility] LABORATORY BASO % 0.2 % [facility] LABORATORY GRAN MAT 7.12 (H) 1.88 - 7.09 [facility] x10^3(ANC) 10*3/uL HOSPITAL LABORATORY IMM GRAN x10^3 0.73 (H) 0.00 - 0.06 [facility] 10*3/uL [facility] LABORATORY LYMPH x10^3 1.16 (L) 1.32 - 3.29 [facility] 10*3/uL HOSPITAL LABORATORY MONO x10^3 0.99 (H) 0.33 - 0.92 [facility] 10*3/uL HOSPITAL LABORATORY EOS x10^3 <0.03 (L) 0.03 - 0.39 [facility] 10*3/uL HOSPITAL LABORATORY BASO x10^3 <0.03 0.01 - 0.07 [facility] 10*3/uL [facility] LABORATORY BANDS Increased (A) [facility] LABORATORY Specimen Blood - VENOUS Performing Organization Address [facility] Phone Number [facility] CLIA: [id number] [place] [address] LEGIONELLA URINARY ANTIGEN TST (05/11/2020 7:02 AM CDT) Pathologist Sig nature Legionella Urinary Negative Negative [facility] LABORATORY Antigen SERVICES Specimen Urine - URINE, CLEAN CATCH Narrative Performed At Negative for L. pneumophilia serogroup I antigen in ur ine [facility] LABORATORY SERVICES suggesting no recent or current infection. Infection d ue to Legionella cannot be ruled out since other serogroups and species may cause disease. Furthermore, antigens may n ot be present in urine during early stage of infection, or t he level of antigen present in urine may be below the det ection limit of the test. Performing Organization Address [facility] Phone Number [facility] LABORATORY SERVICES CLIA: [id number] [place] [address] [place] [address] PNEUMOCOCCAL ANTIGEN (05/11/2020 7:02 AM CDT) Pathologist Sig nature S. pneumoniae antigen Negative Negative [facility] LABORATORY SERVICES Specimen Urine - URINE, CLEAN CATCH Performing Organization Address [facility] Phone Number [facility] LABORATORY SERVICES CLIA: [id number] [place] [address] [place] [address] XR CHEST 1 VW (05/10/2020 9:03 PM CDT) Specimen Impressions Performed At PACS/VR/DOSE Left retrocardiac airspace opacity, pneu monia versus atelectasis. Preliminary Report Dictated by Resident: Damion Graham I, Colin Dennis MD., have reviewed this study and agree with the above report. Narrative Performed At PROCEDURE: XR CHEST 1 VW PACS/VR/DOSE CLINICAL INDICATION: AMS TECHNIQUE: Frontal chest radiograph was obtained. COMPARISON: CT chest 10/18/2019. FINDINGS: Hyperinflated lungs. Left retrocardiac patchy airspace opacity. No pleural effusion or pneumothorax is seen. The cardiac silhouette is enlarged. Aort ic arch calcifications. No acute bony abnormality is noted. Infe rior subluxation of the left humeral head in respect to the glenoid i s unchanged. Procedure Note [facility], Radiant Results Inft User - 2019 9:24 PM CDT PROCEDURE: XR CHEST 1 VW CLINICAL INDICATION: AMS TECHNIQUE: Frontal chest radiograph was obtained. COMPARISON: CT chest 10/18/2019. FINDINGS: Hyperinflated lungs. Left retrocardiac p atchy airspace opacity. No pleural effusion or pneumothorax is seen. The cardiac silhouette is enlarged. Aort ic arch calcifications. No acute bony abnormality is noted. Infe rior subluxation of the left humeral head in respect to the glenoid i s unchanged. IMPRESSION Left retrocardiac airspace opacity, pneu monia versus atelectasis. Preliminary Report Dictated by Resident: Damion Graham I, Colin Dennis MD., have reviewed th is study and agree with the above report. Performing Organization Address City/State/Zipcode Phone Number PACS/VR/DOSE COVID-19 (ID NOW RAPID TESTING) (05/10/2020 8:56 PM CDT) SARS-CoV-2 Rapid ID Not Detected Not Detected [facility] LABORATORY Specimen Swab - NASOPHARYNGEAL SWAB Narrative Performed At ID NOW COVID-19 Assay is an isothermal nucleic [facility] LABORATORY acid amplification test intended for the qualitative detection of nucleic acid from SARS-CoV-2 viral RNA in nasopharyngeal ([employer]) specimens. It is used under Emergency Use Authorization (EUA) by FDA. The limit of detection (LOD) of the assay is 125 Genome Equivalents/mL. A positive result is indicative of the presence of SARS-CoV-2 RNA. Clinical correlation with patient history and other diagnostic information is necessary to determine patient infection status. A negative (Not Detected) result does not preclude SARS-CoV-2 infection. In patients with clinical symptoms and other tests that are consistent with SARS-CoV-2 infection, negative results should be treated as presumptive negative and a new specimen should be tested with alternative PCR molecular test. Invalid: Please collect a new specimen for repeat patient testing if clinically indicated. 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 Narrative Performed At CT HEAD WO CONTRAST PACS/VR/DOSE HISTORY: Altered mental status (AMS), un clear cause COMPARISON: None. TECHNIQUE: Axial CT of the head was perf ormed and reconstructed at 5 mm intervals. Coronal and sagittal reformat lester images were generated. FINDINGS: The lateral and third ventricles are prominent likely reflecting ex vacuo dilatation. No hydrocephalus, midline sh ift or pathological extra-axial fluid collection is present. The basal c isterns are unremarkable. 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 Smaller, chronic infarcts are noted in the left insula and left inferior cerebellum. Scattered patchy subcortical and periventricular white matter hypodensities are nonspecific but can be seen i n setting of chronic microvascular ischemic changes. No acute hemorrhage or extra-axial colle ction. The calvarium and skull base are intact. The paranas al sinuses and mastoid air cells are clear. Procedure Note [facility], Radiant Results Inft User - 2019 11:[address] HEAD WO CONTRAST HISTORY: Altered mental status (AMS), un clear cause COMPARISON: None. TECHNIQUE: Axial CT of the head was perf ormed and reconstructed at 5 mm intervals. Coronal and sagittal reformat lester images were generated. FINDINGS: The lateral and third ventricles are pro minent likely reflecting ex vacuo dilatation. No hydrocephalus, midline sh ift or pathological extra-axial fluid collection is present. The basal c isterns are unremarkable. 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 Smaller, chronic infarcts are noted in the left insula and left inferior cerebellum. Scattered patchy pedro bcortical and periventricular white matter hypodensities are nonspecific but can be seen in setting of chronic microvascular ischemic changes. No acute hemorrhage or extra-axial colle ction. The calvarium and skull base are intact. The paranasal sinuses and mastoid air cells are clear. 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 Performing Organization Address [facility] Phone Number PACS/VR/DOSE Lactic Acid Whole Blood (05/10/2020 8:48 PM CDT) Pathologist Sig nature LACTIC ACID 1.53 mmol/L [facility] LABORATORY Specimen Blood - VENOUS Performing Organization Address [facility] Phone Number [facility] CLIA: [id number] [place] [address] URINALYSIS (05/10/2020 8:46 PM CDT) Pathologist Sig nature APPEARANCE Hazy (A) Clear [facility] LABORATORY COLOR Yellow Yellow [facility] LAB[facility] PH 6.0 4.8 - 8.0 [facility] LABORAT[facility] SP GRAVITY 1.013 1.003 - 1.030 [facility] LABOR[facility] GLU U QUAL Normal Normal [facility] BLOOD Negative Negative [facility] KETONES Negative Negative [facility] PROTEIN Negative Negative [facility] UROBILIN Normal Normal [facility] BILIRUBIN Negative Negative [facility] LAB[facility] NITRITE Positive (A) Negative [facility] LABORATORY LEUK EDWARD 25/uL (A) Negative [facility] LABOR[facility] RBC/HPF 4 (H) 0 - 3 HPF [facility] LABOR[facility] WBC/HPF 2 0 - 5 HPF [facility] LAB[facility] BACTERIA Few (A) Negative [facility] LAB[facility] MUCOUS Slight (A) Negative LPF [facility] LABORATORY HYAL CAST 1 <=2 LPF [facility] LABORATORY Specimen Urine - URINE, CLEAN CATCH Performing Organization Address [facility] Phone Number [facility] CLIA: [id number] [place] [address] PROTHROMBIN TIME / INR (05/10/2020 8:46 PM CDT) PROTIME PATIENT 14.4 12.0 - 14.7 [facility] LABORATORY INR 1.2Comment: Normal [facility] INR <1.1; Warfarin [facility] Therapeutic range LABORATORY 2.0 to 3.0 or 2.5 to 3.5, depending upon the indications. Specimen Blood - VENOUS Performing Organization Address [facility] Phone Number [facility] CLIA: [id number] [place] [address] TROPONIN I (05/10/2020 8:46 PM CDT) Pathologist Sig nature TROPONIN I <0.012 <=0.034 ng/mL [facility] LABORATORY Specimen Blood - VENOUS Narrative Performed At Equal or Less than 0.034 ng/ml---Normal [facility] LABORATORY Note: Cardiac troponin begins to rise 3-4 hours after the onset of ischemia. Repeat in 4-6 hours if the sample was drawn within 3-4 hours of the onset of the symptom and found normal. Between 0.035 and 0.120 ng/mL--- Borderline. Questionable myocardial injury or necros is Note: Serial measurement may be necessary to confirm or exclude the diagnosis of myocardial injury or necrosis; Clinical correlation (symptoms, EKGs, imaging studies, and others) required; Repeat in 4-6 hours if clinically indicated. Equal or Higher than 0.121 ng/mL---Abnormal. Myocardial Injury or Necrosis Likely Biotin has been reported to cause a negative bias, interpret results relative to patient's use of biotin. Performing Organization Address City/[facility] Phone Number [facility] CLIA: [id number] [place] [address] LABORATORY [address] [facility] COMP. METABOLIC PANEL ([id number]) (05/10/2020 8:46 PM CDT) Pathologist [facility] [place] [facility] NA 134 (L) 135 - 145 [facility] mmol/L [facility] LABORATORY K 4.8 3.5 - 5.0 [facility] mmol/L [facility] LABORATORY CL 102 98 - 108 mmol/L [facility] LABORATORY CO2 TOTAL 24 23 - 31 mmol/L [facility] LABORAT[facility] AGAP 8 2 - 16 [facility] LABOR[facility] BUN 16 7 - 23 mg/dL [facility] LABOR[facility]ORY GLUCOSE 89 70 - 110 mg/dL [facility] LABORATORY CREATININE 0.59 0.50 - 1.04 [facility] mg/dL [facility] LABORATORY TOTAL BILI 0.5 0.1 - 1.1 mg/dL [facility] LABORATORY CALCIUM 9.2 8.6 - 10.6 [facility] mg/dL [facility] LABORATORY T PROTEIN 6.9 6.3 - 8.2 g/dL [facility] LABORATORY ALBUMIN 3.5 3.5 - 5.0 g/dL [facility] LABORATORY ALK PHOS 100 34 - 122 U/L [facility] LABORATORY ALTv 8 5 - 35 U/L [facility] LABORATORY AST(SGOT) 19 13 - 40 U/L [facility] LABORATORY eGFR Calculation 96.0 mL/min/1.73m2 [facility] [place] eGFR Calculation 116.3 mL/min/1.73m2 [facility] ([facility]) [facility] LABORATORY Specimen Blood - VENOUS Narrative Performed At [facility] Glomerular Filtration Rate (GFR) [facility] LABORATORY and Staging of Kidney Disease* + + +- + | GFR (mL/min/1.73 m2) | With Kidney Damage | Without Kidney Damage + + +- + | >90 | Stage one | Normal + + +- + | 60-89 | Stage two | Decreased GFR + + +- + | 30-59 | Stage three | Stage three + + +- + | 15-29 | Stage four | Stage four + + +- + | <15 (or dialysis) | Stage five | Stage five + + +- + *Each stage assumes the associated GFR level has been in effect for at least three months. Stages 1 to 5, with or without kidney disease, indicate chronic kidney disease. Notes: Determination of stages one and two (with eGFR >59mL/min/1.73 m2) requires estimation of kidney damage for at least three months as defined by structural or functional abnormalities of the kidney, manifested by either: Pathological abnormalities or Markers of kidney damage (including abnormalities in the composition of the blood or urine or abnormalities in imaging tests). Performing Organization Address City/State/Zipcode Phone Number [facility] CLIA: [id number] [place] [address] CBC WITH DIFF (05/10/2020 8:46 PM CDT) [facility] WBC 8.21 4.30 - 11.10 [facility] 10*3/L HOSPITAL LABORATORY RBC 2.94 (L) 3.93 - 5.25 [facility] 10*6/L HOSPITAL LABORATORY HGB 10.0 (L) 11.6 - 15.0 [facility] g/dL [facility] LABORATORY HCT 30.6 (L) 35.7 - 45.2 % [facility] LABORATORY MCV 104.1 (H) 80.6 - 95.5 fL [facility] LABORATORY MCH 34.0 (H) 25.9 - 32.8 pg [facility] LABORAT[facility] MCHC 32.7 31.6 - 35.1 [facility] g/dL [facility] LABORATORY RDW-SD 53.0 (H) 39.0 - 49.9 fL [facility] LABORATORY RDW-CV 13.8 12.0 - 15.5 % [facility] LABORATORY PLT 265 166 - 358 [facility] 10*3/L [facility] LABORATORY MPV 9.6 9.5 - 12.9 fL [facility] LABORATORY NRBC/100 WBC 0.0 0.0 - 10.0 /100 [facility] WBCs [facility] LABORATORY NRBC x10^3 <0.01 10*3/L [facility] LABORATORY GRAN MAT (NEUT) % 58.0 % [facility] LABORATORY IMM GRAN % 5.60 % [facility] LAB[facility] LYMPH % 21.1 % [facility] LABOR[facility] MONO % 14.4 % [facility] LABOR[facility] EOS % 0.7 % [facility] LABORATORY BASO % 0.2 % [facility] LABORATORY GRAN MAT x10^3(ANC) 4.76 1.88 - 7.09 [facility] 10*3/uL HOSPITAL LABORATORY IMM GRAN x10^3 0.46 (H) 0.00 - 0.06 [facility] 10*3/uL HOSPITAL LABORATORY LYMPH x10^3 1.73 1.32 - 3.29 [facility] 10*3/uL HOSPITAL LABORATORY MONO x10^3 1.18 (H) 0.33 - 0.92 [facility] 10*3/uL [facility] LABORATORY EOS x10^3 0.06 0.03 - 0.39 [facility] 10*3/uL [facility] LABORATORY BASO x10^3 <0.03 0.01 - 0.07 [facility] 10*3/uL [facility] LABORATORY Specimen Blood - VENOUS Performing Organization Address City/State/Zipcode Phone Number [facility] CLIA: [id number] [place] [address] documented in this encounter Visit Diagnoses Diagnosis Altered mental status, unspecified alter ed mental status type - Primary Atrial fibrillation with slow ventricula r response Atrial fibrillation Mild dehydration Dehydration Pneumonia of left lung due to infectious organism, unspecified part of lung Chronic anemia Anemia, unspecified documented in this encounter Administered Medications Medication Order MAR Action Action Date Dose Rate Site acetaminophen (TYLENOL) tablet Given 05/11/2020 8:58 AM CDT 650 mg 650 mg 650 mg, Oral, Q6HPRN, Starting 05/10/20 at 2313, Until Discontinued, Routine, Pain (scale 1-3) azithromycin (ZITHROMAX) 500 mg in NaCl 0.9% (NS) 250 mL VIAL-MATE IV piggyback 500 mg, IV Piggyback, Q24H ABX, 5 doses, First dose on Mon05/12/20 at 2300, Last dose on Mon05/16/20 at 2300, 250 mL, Re ason for Anti-Infective: Empiric Therapy for Suspected Infection, Empiric Therapy Site: Respiratory, Duration of therapy: 7 days cefTRIAXone (ROCEPHIN) 1,000 mg in NaCl 0.9% (NS) 50 mL MINI-BAG 1,000 mg, IV Piggyback, Q24H ABX, 2300 d oses, First dose on Mon05/12/20 at 0000, Last dose on Mon08/28/26 at 0000, 50 mL, Reason for Anti-Infective: Empiric Therapy for Suspected Infection, Empiric Therapy Site: Respiratory, Duration of therapy: 7 days enoxaparin (LOVENOX) injection 40 mg Given 05/11/2020 8:58 AM CDT 40 mg Abdo men-SC 40 mg, Subcutaneous, DAILY, First dose on 10/19/20 at 0900, Until Discontinued, Routine ondansetron (ZOFRAN (PF)) injection 4 mg 4 mg, Slow IV Push, Q6HPRN, Starting 05/10/20 at 2 313, Until Discontinued, Routine, Nausea and Vomiting (N/V) traMADoL (ULTRAM) tablet 50 mg Given 05/11/2020 4:50 AM CDT 50 mg 50 mg, Oral, Q8HPRN, Starting 05/10/20 at 2313, Until Tu05/12/20 at 2312, Routine, Pain (scale 4-6) Medication Order MAR Action Action Date Dose Rate Site azithromycin (ZITHROMAX) 500 mg Given 05/11/2020 1:11 AM CDT 50 0 mg in NaCl 0.9% (NS) 250 mL ADD-VANTAGE 500 mg, IV Piggyback, ONCE, 1 dose, 05/10/20 at 2345, 250 mL, Reason for Anti-Infective: Empiric Therapy for Suspected Infection, Empiric Therapy Site: Respiratory, Duration of therapy: 72 hours cefTRIAXone (ROCEPHIN) 1,000 mg in NaCl Given 05/10/2020 10:19 P M CDT 1,000 mg 0.9% (NS) 50 mL MINI-BAG 1,000 mg, IV Piggyback, ONCE, 1 dose, 05/10/20 at 2215, 50 mL, Reason for Anti-Infective: Empiric Therapy for Suspected Infection, Empiric Therapy Site: Respiratory, Duration of therapy: 72 hours documented in this encounter Additional Health Concerns Infection Onset Date Last Indicated Resolved Time COVID-19 Rule Out 05/10/2020 05/10/2020 05/10/2020 9: 58 PM CDT documented as of this encounter Insurance Payer Benefit Plan / Subscriber ID Effective Dates Phone Addre ss Type Group MEDICARE MEDICARE PART [id number] 1996-Mimi [phone] [address] Medicare A & B t [id number] [place] [id number] [employer] [id number] 2012-Mimi PPO OF JOSEPH t documented as of this encounter
--- NOTE | 2020-05-14 15:13 | ER ---
Nurse's Notes [facility] Name: Danica Murdock Age: 89 yrs Sex: Female : 1930 Arrival Date: 05/14/2020 Time: 12:38 Bed 14 Private MD: Maksim Mortensen Diagnosis: Generalized Pain - chronic Presentation: 05/14 12:43 Chief complaint: Pain all over x 1 year, worse over last few weeks. Daughter reports hb her PCP does not want to increase her Neurontin and she is requesting "a full body scan.". Coronavirus screen: At this time, the client does not indicate any symptoms associated with coronavirus-19. Ebola Screen: No symptoms or risks identified at this time. Initial Sepsis Screen: Does the patient meet any 2 criteria? No. Patient's initial sepsis screen is negative. Does the patient have a suspected source of infection? No. Patient's initial sepsis screen is negative. Risk Assessment: Do you want to hurt yourself or someone else? Patient reports no desire to harm self or others. Onset of symptoms is unknown. 12:43 Method Of Arrival: Wheelchair hb 12:43 Acuity: BRANDIE 3 hb Historical: - Allergies: 12:45 Beta-Blockers (Beta-Adrenergic Blocking Agts); hb 12:45 Clonidine; hb 12:45 Demerol; hb 12:45 Latex, Natural Rubber; hb 12:45 Levaquin; hb 12:45 Plavix; hb - PMHx: 12:45 ADD/ADHD; heart attack; Hypothyroidism; Irregular Hear Rate; stroke; hb - Immunization history:: Adult Immunizations up to date. - Social history:: Smoking status: Patient denies any tobacco usage or history of. Screenin:50 Abuse screen: Denies threats or abuse. Denies injuries from another. Nutritional ca1 screening: No deficits noted. Tuberculosis screening: No symptoms or risk factors identified. Fall Risk Fall in past 12 months (25 points). Secondary diagnosis (15 points) impaired mobility, CVA, IV access (20 points). Ambulatory Aid- None/Bed Rest/Nurse Assist (0 pts). Gait- Weak (10 pts.). Total Lopez Fall Scale indicates High Risk Score (45 or more points). Fall prevention measures have been instituted. Side Rails Up X 2 Family Present and informed to notify staff if the need to leave the bedside As available patient and family educated on Fall Prevention Program and Strategies. Assessment: 12:50 General: Appears in no apparent distress. comfortable, Behavior is calm, cooperative, ca1 appropriate for age. Pain: Complains of pain in all over Is chronic. Neuro: Level of Consciousness is awake, alert, obeys commands, Oriented to person, place, time, situation. Cardiovascular: Heart tones S1 S2 present Capillary refill < 3 seconds Patient's skin is warm and dry. Respiratory: Airway is patent Respiratory effort is even, unlabored, Respiratory pattern is regular, symmetrical, Breath sounds are clear bilaterally. GI: Abdomen is flat, non-distended, PEG tube in place, clamped. Site clean. Bowel sounds present X 4 quads. Abd is soft and non tender X 4 quads. : Parent/caregiver report the patient having We went to [facility] on Monday and they said she has a UTI and they prescribed her Amoxicillin for that. EENT: No signs and/or symptoms were reported regarding the EENT system. Derm: Skin is healthy with good turgor, is fragile, is thin, Skin is pink, warm \\T\\ dry. Musculoskeletal: Circulation, motion, and sensation intact. Capillary refill < 3 seconds. 13:50 Reassessment: Patient appears in no apparent distress at this time. No changes from ca1 previously documented assessment. Patient and/or family updated on plan of care and expected duration. Pain level reassessed. Patient is alert, oriented x 3, equal unlabored respirations, skin warm/dry/pink. 14:50 Reassessment: Patient appears in no apparent distress at this time. No changes from ca1 previously documented assessment. Patient and/or family updated on plan of care and expected duration. Pain level reassessed. Patient is alert, oriented x 3, equal unlabored respirations, skin warm/dry/pink. 15:42 Reassessment: Patient appears in no apparent distress at this time. Patient is alert, ca1 oriented x 3, equal unlabored respirations, skin warm/dry/pink. Patient states feeling better. Vital Signs: 12:43 BP 128 / 80; Pulse 52; Resp 16; Temp 97.8; Pulse Ox 99% on R/A; Pain 8/10; hb 13:40 BP 121 / 44; Pulse 59; Resp 16; Pulse Ox 100% on R/A; mh5 14:30 BP 103 / 87; Pulse 59; Resp 16 S; Pulse Ox 100% on R/A; ca1 15:30 BP 129 / 68; Pulse 75; Resp 16 S; Pulse Ox 100% on R/A; ca1 ED Course: 12:38 Patient arrived in ED. ag5 12:38 Maksim Mortensen MD is Private Physician. ag5 12:45 Triage completed. hb 12:45 Arm band placed on. hb 12:50 Cinthia Jasso RN is Primary Nurse. ca1 12:50 Patient has correct armband on for positive identification. Placed in gown. Bed in low ca1 position. Call light in reach. Side rails up X2. hospital monitor on. Pulse ox on. NIBP on. Warm blanket given. 12:55 Ney Wilkinson MD is Attending Physician. kdr 15:12 Maksim Mortensen MD is Referral Physician. kdr 15:43 No provider procedures requiring assistance completed. Patient did not have IV access ca1 during this emergency room visit. Administered Medications: 14:14 Drug: traMADol 50 mg {Note: Via peg tube.} Route: PO; ca1 Outcome: 15:13 Discharge ordered by . kdr 15:43 Discharged to home via wheelchair, with family. ca1 15:43 Condition: stable 15:43 Discharge instructions given to patient, family, daughter Instructed on discharge instructions, follow up and referral plans. no drinking with medication, no driving heavy equipment, medication usage, Demonstrated understanding of instructions, follow-up care, medications, Prescriptions given X 1. 15:44 Patient left the ED. ca1 Signatures: Ney Wilkinson MD MD [facility] Anna Maldonado RN RN Diandra Lugo [facility] Cinthia Jasso RN RN [facility] Latasha De La Rosa 5 Corrections: (The following items were deleted from the chart) 14:15 12:50 GI: Abdomen is flat, non-distended, Bowel sounds present X 4 quads. Abd is soft ca1 and non tender X 4 quads. ca1 15:42 14:50 Reassessment: Patient appears in no apparent distress at this time. Patient is ca1 alert, oriented x 3, equal unlabored respirations, skin warm/dry/pink. Patient states feeling better. ca1
--- NOTE | 2020-05-14 15:13 | EDPHYS ---
Physician Documentation [facility] Name: Danica Murdock Age: 89 yrs Sex: Female : 1930 Arrival Date: 05/14/2020 Time: 12:38 Bed 14 Private MD: Maksim Mortensen ED Physician Ney Wilkinson HPI: 05/14 16:59 This 89 yrs old Female presents to ER via Wheelchair with complaints of Pain kdr All Over. 16:59 The patient has had generalized noon-focal pain that has been progressively worsening kdr for the last year. She currently has no focal c/o and has no other localized concerns per the daughter. 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 Her brother/PCP have concerns and have requested a whole body scan. By history and physical exam, the patient is unchanged from her baseline. D/w daughter, patient condition. She indicates that the Neurontin is not managing her pain as well as it had and that they are giving her the max dose without sufficient relief.. Onset: The symptoms/episode began/occurred gradually, at an unknown time. getting worse over the last few months. Severity of symptoms: At their worst the symptoms were mild in the emergency department the symptoms are unchanged. The patient has experienced similar episodes in the past, chronically, Continues to worsen. The patient has not recently seen a physician. Historical: - Allergies: 12:45 Beta-Blockers (Beta-Adrenergic Blocking Agts); hb 12:45 Clonidine; hb 12:45 Demerol; hb 12:45 Latex, Natural Rubber; hb 12:45 Levaquin; hb 12:45 Plavix; hb - PMHx: 12:45 ADD/ADHD; heart attack; Hypothyroidism; Irregular Hear Rate; stroke; hb - Immunization history:: Adult Immunizations up to date. - Social history:: Smoking status: Patient denies any tobacco usage or history of. ROS: 16:59 Constitutional: Negative for fever, chills, and weight loss, Eyes: Negative for injury, kdr pain, redness, and discharge, ENT: Negative for injury, pain, and discharge, Neck: Negative for injury, pain, and swelling, Cardiovascular: Negative for chest pain, palpitations, and edema, Respiratory: Negative for shortness of breath, cough, wheezing, and pleuritic chest pain, Abdomen/GI: Negative for abdominal pain, nausea, vomiting, diarrhea, and constipation, Back: Negative for injury and pain, : Negative for injury, bleeding, discharge, and swelling, Skin: Negative for injury, rash, and discoloration, Psych: Negative for depression, anxiety, suicide ideation, homicidal ideation, and hallucinations, Allergy/Immunology: Negative for hives, rash, and allergies, Endocrine: Negative for neck swelling, polydipsia, polyuria, polyphagia, and marked weight changes, Hematologic/Lymphatic: Negative for swollen nodes, abnormal bleeding, and unusual bruising. 16:59 MS/extremity: Positive for No changes from baseline. 16:59 Neuro: Positive for No changes from bsaeline. Exam: 16:59 Constitutional: This is a well developed, well nourished patient who is awake, alert, kdr and in no acute distress. Head/Face: Normocephalic, atraumatic. Neck: Trachea midline, no thyromegaly or masses palpated, and no cervical lymphadenopathy. Supple, full range of motion without nuchal rigidity, or vertebral point tenderness. No Meningismus. Chest/axilla: Normal chest wall appearance and motion. Nontender with no deformity. No lesions are appreciated. Cardiovascular: Regular rate and rhythm with a normal S1 and S2. No gallops, murmurs, or rubs. Normal PMI, no JVD. No pulse deficits. Respiratory: Lungs have equal breath sounds bilaterally, clear to auscultation and percussion. No rales, rhonchi or wheezes noted. No increased work of breathing, no retractions or nasal flaring. Abdomen/GI: Soft, non-tender, with normal bowel sounds. No distension or tympany. No guarding or rebound. No evidence of tenderness throughout. Back: No spinal tenderness. No costovertebral tenderness. Full range of motion. MS/ Extremity: Pulses equal, no cyanosis. Neurovascular intact. Full, normal range of motion. Neuro: Awake and alert, GCS 15, oriented to person, place, time, and situation. Cranial nerves II-XII grossly intact. No change from baseline Vital Signs: 12:43 BP 128 / 80; Pulse 52; Resp 16; Temp 97.8; Pulse Ox 99% on R/A; Pain 8/10; hb 13:40 BP 121 / 44; Pulse 59; Resp 16; Pulse Ox 100% on R/A; mh5 14:30 BP 103 / 87; Pulse 59; Resp 16 S; Pulse Ox 100% on R/A; ca1 15:30 BP 129 / 68; Pulse 75; Resp 16 S; Pulse Ox 100% on R/A; ca1 MDM: 15:13 Patient medically screened. kdr 16:59 Data reviewed: vital signs, nurses notes. Counseling: I had a detailed discussion with kdr the patient and/or guardian regarding: the historical points, exam findings, and any diagnostic results supporting the discharge/admit diagnosis, the need for outpatient follow up. ED course: Extensive d/w daughter. Attempted to d/w Dr. Griggs - he was out today. Spoke to Dr. Auguste in his office who had no familiarity or suggestions. Per daughter, the main goal is to make her more comforatble as the Neurontin does not seem to working any fhurther. Administered Medications: 14:14 Drug: traMADol 50 mg {Note: Via peg tube.} Route: PO; ca1 Disposition: 05/14/20 15:13 Discharged to Home. Impression: Generalized Pain - chronic. - Condition is Stable. - Prescriptions for Tramadol 50 mg Oral Tablet - take 1 tablet by ORAL route At bedtime As needed as needed; 16 tablet. - Medication Reconciliation Form, Thank You Letter, Prescription Opioid Use form. - Follow up: Maksim Mortensen MD; When: 2 - 3 days; Reason: If symptoms return, Further diagnostic work-up, Recheck today's complaints, Continuance of care, Re-evaluation by your physician. - Problem is an ongoing problem. - Symptoms have improved. Signatures: Ney Wilkinson MD MD [facility] Anna Maldonado RN RN Cinthia Jasso RN RN ca1 Corrections: (The following items were deleted from the chart) 15:44 15:13 05/14/2020 15:13 Discharged to Home. Impression: Generalized Pain - chronic. ca1 Condition is Stable. Forms are Medication Reconciliation Form, Thank You Letter, Antibiotic Education, Prescription Opioid Use. Follow up: Maksim Mortensen; When: 2 - 3 days; Reason: If symptoms return, Further diagnostic work-up, Recheck today's complaints, Continuance of care, Re-evaluation by your physician. Problem is an ongoing problem. Symptoms have improved. kdr
[2020-05-14 16:07] VITALS: TEMP 97.8
[2020-05-14 16:09] VITALS: O2SAT 100
[2020-05-14 16:12] VITALS: BP 129/68
== END 2020-05-14 15:44 | disposition home or self-care (01) ==
LOC: ER 12:36
DX: G89.29 Other chronic pain (principal); I69.354 Hemiplegia and hemiparesis following cerebral infarction affecting left non-dominant side; I25.2 Old myocardial infarction; Z79.01 Long term (current) use of anticoagulants; Z88.1 Allergy status to other antibiotic agents; Z88.5 Allergy status to narcotic agent; Z88.8 Allergy status to other drugs, medicaments and biological substances; Z91.040 Latex allergy status; Z91.048 Other nonmedicinal substance allergy status
CPT/HCPCS: 99284

== ENCOUNTER 2020-09-03 08:59 | Emergency (ER) | payer OTHER ==
[2020-09-03 10:12] LABS: Absolute Lymphocytes (CBC) 1.4 K/uL (0.7-4.9); Basophils % 0.5 % (0-1.3); Hematocrit 34.4 % (36.0-45.0); Lymphocytes % 15.5 % (15.3-44.8)
[2020-09-03 10:21] LABS: ALT/SGPT 11 U/L (12-78); AST/SGOT 11 U/L (15-37); Albumin 3.1 g/dL (3.4-5.0); Alkaline Phosphatase 125 U/L (45-117); BUN Blood Urea Nitrogen 7 mg/dL (7-18); Bicarbonate 27 mmol/L (21-32); Bilirubin Direct 0.2 mg/dL (0-0.2); Bilirubin Total 0.4 mg/dL (0.2-1.0); Glucose Level 100 mg/dL (74-106); Lipase 61 U/L (73-393); Potassium 4.2 mmol/L (3.5-5.1); Protein, Total 7.2 g/dL (6.4-8.2); Sodium Level 139 mmol/L (136-145)
--- NOTE | 2020-09-03 10:23 | RAD REPORT ---
EXAM DESCRIPTION: RAD - Chest Single View - 09/03/2020 10:13 am CLINICAL HISTORY: CONGESTION Chest pain. COMPARISON: Chest Pa And Lat (2 Views) dated 01/15/2018; Chest Single View dated 12/27/2017; Chest Sing le View dated 06/27/2016; CHEST SINGLE VIEW dated 06/28/2013 FINDINGS: Portable technique limits examination quality. [id number] bilateral interstitial lung opacities are present, greater on the right. Findings li lisha indicate infection or pulmonary edema. The heart is mildly enlarged in size.
[2020-09-03 10:37] LABS: Urine Blood NEGATIVE (NEG); Urine Glucose NEGATIVE (NEG); Urine Protein NEGATIVE (NEG); Urine pH 7.5 (5.0-7.0)
[2020-09-03 10:38] LABS: Blood Morphology Comment NOT SEEN (NOT SEEN); Platelet Estimate ADEQ
--- NOTE | 2020-09-03 10:38 | RAD REPORT ---
EXAM DESCRIPTION: CTAbdomen Pelvis W Contrast - 09/03/2020 10:29 am CLINICAL HISTORY: Abdominal pain. ABD PAIN COMPARISON: No comparisons TECHNIQUE: Biphasic CT imaging of the abdomen and pelvis was performed with 100 ml non-ionic IV cont rast. All CT scans are performed using dose optimization technique as appropriate and may include automated exposure control or mA/KV adjustment according to patient size. FINDINGS: Small airspace consolidation is seen in the right lung base with a small right pleural eff usion. Minimal opacities also seen in posterior left lung base. Findings likely are related to pneumo jeremias. The liver demonstrates no focal mass or biliary dilatation. The spleen, pancreas, adrenal glands and kidneys are within normal limits. Gastrostomy tube is in place. Mild edema is seen stomach and duoden al hunter. Aortoiliac atherosclerosis is present. No bowel obstruction, free air, free fluid or abscess. Significant fecal retention is seen throughout the colon. Sigmoid diverticulosis is present without diverticulitis. The appendix is not identified as a discrete structure, however, no secondary findings of appendicitis are identified. No evidence of significant lymphadenopathy. Diffuse osteopenia is seen with lumbosacral degenerative changes. IMPRESSION: Small right pleural effusion with right lung base consolidation likely represents pneumo jeremias. PEG tube is in appropriate position. Significant fecal retention throughout the colon.
--- NOTE | 2020-09-03 11:49 | ER ---
Nurse's Notes [facility] Name: Danica Murdock Age: 89 yrs Sex: Female : 1930 Arrival Date: 09/03/2020 Time: 09:03 Bed 20 Private MD: Diagnosis: Pneumonia, unspecified organism Presentation: 09/03 09:00 Chief complaint: EMS states: Pt. A \T\ O x 4 is from home, c/o lower abdominal pain. rb3 Denies pain now, only while coughing. The cough is normal for the pt. She has a history of CVA with left sided deficits and is contracted. Pt. is slow to respond but the is normal baseline. History of CVA, A-fib, Peg tube, and wound on left heel, bootie in place. Vital signs are stable, BP is elevated. Coronavirus screen: At this time, the client does not indicate any symptoms associated with coronavirus-19. Ebola Screen: Patient denies travel to an Ebola-affected area in the 21 days before illness onset. Initial Sepsis Screen: Does the patient meet any 2 criteria? No. Patient's initial sepsis screen is negative. Initial Sepsis Screen:. Risk Assessment: Do you want to hurt yourself or someone else? Patient reports no desire to harm self or others. Onset of symptoms is unknown. 09:00 Method Of Arrival: EMS: [facility] rb3 09:00 Acuity: BRANDIE 3 rb3 09:00 Initial Sepsis Screen: Does the patient have a suspected source of infection? Yes: Skin rb3 breakdown/wound. Triage Assessment: 09:00 General: Appears in no apparent distress. comfortable, Behavior is calm, cooperative. rb3 Pain: Complains of pain in abdomen Pain currently is 0 out of 10 on a pain scale. at worst was 6 out of 10 on a pain scale. Neuro: Level of Consciousness is awake, alert, obeys commands, Oriented to person, place, time, situation. Cardiovascular: Patient's skin is warm and dry. Respiratory: Airway is patent Respiratory effort is even, unlabored, Respiratory pattern is regular, symmetrical. GI: PEG tube in place, Site clean. Last BM was September 03, 2020. : incontinence. Musculoskeletal: Range of motion: limited in left arm and left leg. Historical: - Allergies: 09:00 Beta-Blockers (Beta-Adrenergic Blocking Agts); rb3 09:00 Clonidine; rb3 09:00 Demerol; rb3 09:00 Latex, Natural Rubber; rb3 09:00 Levaquin; rb3 09:00 Plavix; rb3 - PMHx: 09:00 ADD/ADHD; heart attack; Hypothyroidism; Irregular Hear Rate; stroke; rb3 - Immunization history:: Pt. does not take Flu or Pneumonia vaccines.. - Social history:: Smoking status: Patient/guardian denies using. Screenin:00 Abuse screen: Denies threats or abuse. Nutritional screening: No deficits noted. rb3 Tuberculosis screening: No symptoms or risk factors identified. Fall Risk No fall in past 12 months (0 pts). Secondary diagnosis (15 points) impaired mobility, CVA, No IV (0 pts). Ambulatory Aid- None/Bed Rest/Nurse Assist (0 pts). Gait- Normal/Bed Rest/Wheelchair (0 pts) Mental Status- Oriented to own ability (0 pts). Total Lopez Fall Scale indicates No Risk (0-24 pts). Assessment: 09:00 General: See triage assessment. rb3 10:00 Reassessment: Patient appears in no apparent distress at this time. No changes from rb3 previously documented assessment. 10:28 Reassessment: Pt. went to CT. rb3 11:00 Reassessment: Patient appears in no apparent distress at this time. Patient and/or rb3 family updated on plan of care and expected duration. Pain level reassessed. Patient is alert, oriented x 3, equal unlabored respirations, skin warm/dry/pink. 12:00 Reassessment: Patient appears in no apparent distress at this time. No changes from rb3 previously documented assessment. 12:30 Reassessment: Gave report to [facility]. Information from the [facility] was given. All rb3 questions asked and answered. Sent the discharge papers with one prescription, leg pillow and a disposable pillow that was brought from home. Also sent a fabric ashutosh in a personal belongings bag that came from home. Vital Signs: 09:00 BP 180 / 92; Pulse 62; Resp 17; Temp 98.1; Pulse Ox 97% ; Weight 56.7 kg; Height 5 ft. rb3 6 in. (167.64 cm); Pain 0/10; 10:00 BP 115 / 98; Pulse 55; Resp 17; Pulse Ox 96% ; rb3 10:29 rb3 11:00 BP 104 / 84; Pulse 75; Resp 16; Pulse Ox 95% on R/A; rb3 12:00 BP 101 / 74; Pulse 65; Resp 15; Pulse Ox 95% ; rb3 09:00 Body Mass Index 20.18 (56.70 kg, 167.64 cm) rb3 10:[address] rb3 ED Course: 09:00 Arm band placed on right wrist. rb3 09:00 Patient has correct armband on for positive identification. Bed in low position. Call rb3 light in reach. Side rails up X2. Pulse ox on. NIBP on. Warm blanket given. 09:03 Patient arrived in ED. em1 09:05 Ney Wilkinson MD is Attending Physician. kdr 09:08 Gladys Harkins, RN is Primary Nurse. rb3 09:19 Triage completed. rb3 09:51 Initial lab(s) drawn. Inserted saline lock: in right hand, using aseptic technique. kj1 Blood collected. 10:08 Urine Dipstick-Ancillary Sent. kj1 10:08 Urine Dipstick--Ancillary (enter results) Sent. kj1 10:13 CXR XRAY In Process Unspecified. EDMS 10:29 CT Abd/Pelvis - IV Contrast Only In Process Unspecified. EDMS 12:30 No provider procedures requiring assistance completed. IV discontinued, intact, rb3 bleeding controlled, No redness/swelling at site. Pressure dressing applied. Administered Medications: No medications were administered Output: 09:43 Stool: 1 (Formed Stool) ; Total: 0ml. rb3 Outcome: 11:48 Discharge ordered by . kdr 12:30 Discharged to home via ambulance. rb3 12:30 Condition: stable 12:30 Discharge instructions given to EMS, Instructed on discharge instructions, follow up and referral plans. medication usage, Demonstrated understanding of instructions, follow-up care, medications, Prescriptions given X 1. 12:33 Patient left the ED. rb3 Signatures: Dispatcher [employer] EDMS Ney Wilkinson MD MD kdr Martinez, Eric em1 Gisselle Singh kj1 Gladys Harkins, RN RN rb3
--- NOTE | 2020-09-03 11:49 | EDPHYS ---
Physician Documentation [facility] Name: Danica Murdock Age: 89 yrs Sex: Female : 1930 Arrival Date: 09/03/2020 Time: 09:03 Bed 20 Private MD: ED Physician Ney Wilkinson HPI: 09/03 11:55 This 89 yrs old Female presents to ER via EMS with complaints of Abdominal kdr Pain. 13:58 The patient presents with abdominal pain. kdr 15:24 Onset: The symptoms/episode began/occurred gradually, 4 day(s) ago. The symptoms do not kdr radiate. Associated signs and symptoms: Pertinent positives: Cough and congestion - chronic. The symptoms are described as The patient is a poor historian and slow to communicate which is her baseline. Severity of pain: At its worst the pain was mild in the emergency department the pain has improved mildly. It is unknown whether or not the patient has had similar symptoms in the past. The patient has not recently seen a physician. Historical: - Allergies: 09:00 Beta-Blockers (Beta-Adrenergic Blocking Agts); rb3 09:00 Clonidine; rb3 09:00 Demerol; rb3 09:00 Latex, Natural Rubber; rb3 09:00 Levaquin; rb3 09:00 Plavix; rb3 - PMHx: 09:00 ADD/ADHD; heart attack; Hypothyroidism; Irregular Hear Rate; stroke; rb3 - Immunization history:: Pt. does not take Flu or Pneumonia vaccines.. - Social history:: Smoking status: Patient/guardian denies using. ROS: 15:24 Constitutional: Negative for fever, chills, and weight loss - it is difficult to get a kdr solid history due the patient's bsaeline mental status Eyes: Negative for injury, pain, redness, and discharge, Neck: Negative for injury, pain, and swelling, MS/Extremity: Negative for injury and deformity, Neuro: Negative for headache, weakness, numbness, tingling, and seizure activity. 15:24 Abdomen/GI: Positive for abdominal pain, nausea, Negative for vomiting, abdominal distension, black/tarry stool. Exam: 15:24 Constitutional: This is a well developed, mildy cachectic patient who is awake, alert kdr to baseline , and in no acute distress. Head/Face: Normocephalic, atraumatic. Chest/axilla: Normal chest wall appearance and motion. Nontender with no deformity. No lesions are appreciated. Cardiovascular: Regular rate and rhythm with a normal S1 and S2. No gallops, murmurs, or rubs. Normal PMI, no JVD. No pulse deficits. Respiratory: Lungs have equal breath sounds bilaterally, clear to auscultation and percussion. No rales, rhonchi or wheezes noted. No increased work of breathing, no retractions or nasal flaring. 15:24 Abdomen/GI: Inspection: abdomen appears normal, Bowel sounds: diminished, in all quadrants, Palpation: soft, nontender, rebound tenderness, is not appreciated. Vital Signs: 09:00 BP 180 / 92; Pulse 62; Resp 17; Temp 98.1; Pulse Ox 97% ; Weight 56.7 kg; Height 5 ft. rb3 6 in. (167.64 cm); Pain 0/10; 10:00 BP 115 / 98; Pulse 55; Resp 17; Pulse Ox 96% ; rb3 10:29 rb3 11:00 BP 104 / 84; Pulse 75; Resp 16; Pulse Ox 95% on R/A; rb3 12:00 BP 101 / 74; Pulse 65; Resp 15; Pulse Ox 95% ; rb3 09:00 Body Mass Index 20.18 (56.70 kg, 167.64 cm) rb3 10:[address] rb3 MDM: 11:48 Patient medically screened. kdr 15:24 Differential diagnosis: appendicitis, bowel obstruction, non-specific abd pain. Data kdr reviewed: vital signs, nurses notes, lab test result(s), radiologic studies. Counseling: I had a detailed discussion with the patient and/or guardian regarding: the historical points, exam findings, and any diagnostic results supporting the discharge/admit diagnosis, lab results, radiology results, the need for outpatient follow up. ED course: The daughter wished that she come home for treatment. Since her VS were otherwise stable that seemed a reasonable option. The patient was discharged in stable/good condition. 09/03 09:30 Order name: Basic Metabolic Panel kdr 09/03 09:30 Order name: CBC with Diff kdr 09/03 09:30 Order name: Hepatic Function kdr 09/03 09:30 Order name: Lipase kdr 09/03 09:30 Order name: Urine Culture kdr 09/03 09:31 Order name: Basic Metabolic Panel; Complete Time: 10:30 [facility] 09/03 09:30 Order name: CXR XRAY; [facility] 09:31 Order name: CBC with Automated Diff; Complete Time: 11:10 [facility] 09/03 09:31 Order name: Liver (Hepatic) Function; Complete Time: 10:30 [facility] 09/03 09:31 Order name: Lipase; Complete Time: 10:30 [facility] 09/03 09:33 Order name: CT Abd/Pelvis - IV Contrast Only; [facility]: [facility] 09/[facility] 10:04 Order name: Urine Dipstick--Ancillary (enter results) em 09/03 10:05 Order name: Urine Dipstick-Ancillary; Complete Time: 11: [facility] 09/03 10:38 Order name: Manual Differential; Complete Time: 11:10 [facility] 09/03 09:30 Order name: IV Saline Lock; [facility] 09[facility] 09:30 Order name: Labs collected and sent; Complete [facility]: [facility] 09/03 09:30 Order name: Urine Dipstick-Ancillary (obtain specimen); [facility]: [facility] 09/03 09:54 Order name: Straight Cath - Urine; Complete Time: 09:54 rb3 Administered Medications: No medications were administered Disposition: 09/03/20 11:48 Discharged to Home. Impression: Pneumonia, unspecified organism. - Condition is Stable. - Discharge Instructions: Community-Acquired Pneumonia, Adult, Abdominal Pain, Adult, [id number]. - Prescriptions for Augmentin 250- 62.5 mg/5 mL Oral Suspension for Reconstitution - take 10 milliliter by ORAL route every 8 hours for 10 days; 300 milliliter. - Medication Reconciliation Form, Thank You Letter, Antibiotic Education form. - Follow up: Private Physician; When: 2 - 3 days; Reason: If symptoms return, Further diagnostic work-up, Recheck today's complaints, Continuance of care, Re-evaluation by your physician. - Problem is new. - Symptoms have improved. Signatures: [facility] MD MD kdr Gladys Harkins RN RN rb3 Corrections: (The following items were deleted from the chart) 12:33 11:48 09/03/2020 11:48 Discharged to Home. Impression: Pneumonia, unspecified organism. rb3 Condition is Stable. Forms are Medication Reconciliation Form, Thank You Letter, Antibiotic Education, Prescription Opioid Use. Follow up: Private Physician; When: 2 - 3 days; Reason: If symptoms return, Further diagnostic work-up, Recheck today's complaints, Continuance of care, Re-evaluation by your physician. Problem is new. Symptoms have improved. kdr
[2020-09-03 12:39] VITALS: TEMP 98.1
[2020-09-03 12:40] VITALS: BP 115/98; O2SAT 96
== END 2020-09-03 12:33 | disposition home or self-care (01) ==
LOC: ER 08:59
DX: J18.9 Pneumonia, unspecified organism (principal); Z88.1 Allergy status to other antibiotic agents; Z88.6 Allergy status to analgesic agent; Z91.040 Latex allergy status; Z88.8 Allergy status to other drugs, medicaments and biological substances
CPT/HCPCS: 87088; 85025; 87086; 80048; 36415; 80076; 81003; 83690; 74177; 71045; 99284; Q9967

== ENCOUNTER 2021-01-11 13:31 | Emergency (ER) | payer OTHER ==
--- OUTSIDE RECORDS SUMMARY | 2021-01-11 13:35 | XMS REPORT | Continuity of Care Document ---
:1930 Author Organization [facility] t Address [address] [place] [address] Dr. [address] [place] [address] Care Team Providers Name Role Phone Pcp Primary Care Physician Unavailable Doctor Unassigned, Name Attending Clinician Unavailable Gilberto Mortensen MD Attending Clinician ALEXX HENRY Attending Clinician Unavailable LAURENCE AGUILLON Admitting Clinician Unavail able Problems Condition Condition Condition Status Onset Resolution Last Treating Co mments Source Name Details Category Date Date Treatment Clinician Date Chronic Chronic Disease Active [facility] 04[facility]09 [facility] fibr[facility]ati fibrillati 00:00: Me dical on on 00 Center Essential Essential Disease Active [facility] hypertensi hypertensi 04-09 Caren kes - on on 00:00: Medical 00 Center Chronic Chronic Disease Active [address] [facility] [address] 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:00: Medical failure failure 00 Center Altered Altered Disease Active [facility] mental mental 04-02 [facility] - status, status, 00:00: Medical unspecifie unspecifie 00 Ce nter d altered d altered mental mental status status type type 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[facility]01 [facility] - stroke, stroke, 00:00: Medical MCA MCA 00 Center (middle (middle cerebral cerebral artery), artery), right, right, acute acute Allergies, Adverse Reactions, Alerts Allergy Allergy Status Severity Reaction(s) Onset Inactive Treating Comm ents Source Name Type Date Date Clinician Clonidin Drug Active Other (See Blistered [facility] Allergy Comments) 910 rash, [facility] - 00:00: racing Medical 00 heart, Center increased BP Latex Propensi Active Other (See Allergy [facility] ty to Comments) 9 skin test [facility] - adverse 00:00: Medical reaction 00 Center s Levoflox Propensi Active Other (See Severe [facility] acin ty to Comments) 9 headache, [facility] - adverse 00:00: stomach Medical reaction 00 ache, Center s nausea Clopidog Propensi Active Nausea Only Irregula r [facility] rel ty to 04-02 heart [facility] - adverse 00:00: beat, Medical reaction 00 nausea, Center s tingling Social History Social Habit Start Date Stop Date Quantity Comments Source Sex Assigned At [facility] Tobacco use and 2019-04-08 2019-04-08 Never used [facility] - exposure 00:00:00 00:00:00 [facility] Smoking Status Start Date Stop Date Source Never smoker [facility] Medications Ordered Filled Start Stop Current Ordering Indication Dosage Frequency Signature Comments Components Source Medication Medication Date Date Medication? Clinician (SIG) Name Name lisinopril 2019- No 20mg QD 1 tablet [facility] I [...] Tube route 2 (two) times daily. atorvastati 2020- No 80mg QD [address] [facility] (LIPITOR) 04-09 (80 mg [facility] - 80 MG 00:00: 23:59 total) by Medica l tablet 00 :00 G-tube Center route nightly. senna-docus 2020- No 1{tbl} [address] ate [...] Procedures This patient has no known procedures. Plan of Care Planned Activity Planned Date Details Comments Source Future Scheduled 2020-03-24 INFLUENZA VACCINE (#1) [facility] - Test 00:00:00 [code = INFLUENZA Medical Ce nter VACCINE (#1)] Future Scheduled 1997-03-[address] [facility] - Test 00:00:00 WELLNESS (YEAR 2 or Medical Center FIRST YEAR if no IPPE) [code = MEDICARE ANNUAL WELLNESS (YEAR 2 or FIRST YEAR if no IPPE)] Future Scheduled 1996 PNEUMOCOCCAL 65+ YRS [facility] - Test 00:00:00 (1 of 1 - Medical Center [id number] PCV13) [code = PNEUMOCOCCAL 65+ YRS (1 of 1 - [id number] PCV13)] Encounters Start End Encounter Admission Attending Care Care Encounter Source Date/Time Date/Time Type Type Clinicians Facility Department ID 2020-12-15 2020-12-15 Orders Doctor SINGH [id number] 00:00:00 00:00:00 Only Unassigned, YAQUELIN 350..13.10 [place] [facility] [id number] 2020-12-14 2020-12-14 Office MICHAEL Mortensen [id number] 14:26:39 14:41:39 Visit [facility] [id number] Gilberto Banuelos 4.2.7.2.686 Professio [id number] nal 044 Office [address] One 2020-11-07 2020-11-07 Orders Doctor FRANCISCO [id number] 00:00:00 00:00:00 Only Unassigned, YAQUELIN [id number] [place] [facility] [id number] Results Test Description Test Time Test Comments Results Result [facility] e Comments TISSUE EXAM 2019-04-15 Surgical Pathology Report 14:48:00 Case: [id number] Authorizing Provider: Sunil Guadarrama MD Collected: 04/06/2019 1558 Ordering Location: [address] Received: 04/08/2019 0815 Service Pathologist: Janessa [...] DYSPLASIA, MALIGNANCY Signing Pathologist Direct Phone Line: [phone] y signed by Janessa Pandey MD on 04/15/2019 at 2:48 PMImmunostain for gastrin highlights the antral mucosa. Immunostain for chromogranin does not show evidence of neuroendocrine hyperplasia. No features of autoimmune gastritis are seen.[id number] 41Dysphagia Random gastric body/antrumReceived in formalin labeled [...] evaluated Immunohistochemistry technical testing was performed at [facility] Pathology Laboratory where it was developed and [...] 1095) No growth in 5 days BLOOD [id number] 12:01:00 Test Item Value Reference Range Interpretation Comments CULTURE (BEAKER) (test No growth in 5 days code = 1095) CBC W/PLT COUNT & AUTO [id number] 13:08:00 Test Item Value Reference Range Interpretation [...] 3438) Received comment: User comments: Slide comments:POCT-GLUCOSE [id number] 11:57:00 Test Item Value Reference Range Interpretation Comments POC-GLUCOSE METER 163 mg/dL 70-[address] [facility] 6720 (BEAKER) (test code = [place]ANN[place] 1538) [address] POCT-GLUCOSE [id number] 06:11:00 Test Item Value Reference Range Interpretation Comments POC-GLUCOSE METER 185 mg/dL 70-[address] [facility] 6720 (BEAKER) (test code = JEANN[place] 1538) [address] [id number] 05:56:00 Test Item Value Reference Range Interpretation Comments MAGNESIUM (BEAKER) (test code = 1.8 mg/dL 1.6-2.6 627) BASIC METABOLIC [id number] 05:56:00 Test Item Value Reference Range Interpretation [...] NOT APPLICABLE FOR DIALYSIS PATIEN TS. POCT-GLUCOSE [id number] 17:47:00 Test Item Value Reference Range Interpretation Comments POC-GLUCOSE METER 169 mg/dL 70-110 H TESTED AT [place] [address] ([facility]) (test code = [place] 1538) [address] [id number] 15:30:00 Test Item Value Reference Range Interpretation Comments PROCALCITONIN (BEAKER) (test code 0.64 ng/mL <0.05 H = 3036) SEPSIS RISK (ng/mL)Low: 0.05-0.50Intermediate: 0.51-2.00High: >=2.01POCT-GLUCOSE [id number] 13:00:00 Test Item Value Reference Range Interpretation Comments POC-GLUCOSE METER 172 mg/dL 70-110 H TESTED AT [place] [address] ([facility]) ([facility] = [facility] 1538) [address] CBC W/PLT COUNT & AUTO [id number] 08:17:00 Test Item Value Reference Range Interpretation [...] 3438) Received comment: User comments: Slide comments:POCT-GLUCOSE [id number] 06:12:00 Test Item Value Reference Range Interpretation Comments POC-GLUCOSE METER 171 mg/dL 70-[address] [facility] 6720 (BEAKER) (test code = [place]ANNIE [place] 1538) [address] BASIC METABOLIC [id number] 05:27:00 Test Item Value Reference Range Interpretation [...] NOT APPLICABLE FOR DIALYSIS PATIEN TS. POCT-GLUCOSE [id number] 23:29:00 Test Item Value Reference Range Interpretation Comments POC-GLUCOSE METER 152 mg/dL 70-[address] [facility] 6720 (BEAKER) (test code = [facility] 1538) [address] BLOOD [id number] 20:01:00 Test Item Value Reference Range Interpretation Comments CULTURE (BEAKER) (test No growth in 5 days code = 1095) BLOOD [id number] 20:01:00 Test Item Value Reference Range Interpretation Comments CULTURE (BEAKER) (test No growth in 5 days code = 1095) POCT-GLUCOSE [id number] 17:06:00 Test Item Value Reference Range Interpretation Comments POC-GLUCOSE METER 145 mg/dL 70-[address] [facility] 6720 (BEAKER) (test code = [facility] Ariel [facility] 1538) [address] URINALYSIS W/ REFLEX URINE [id number] 14:17:00 Test Item Value Reference Range Interpretation [...] Rare SOURCE(BEAKER) (test code = 2795) POCT-GLUCOSE [id number] 12:20:00 Test Item Value Reference Range Interpretation Comments POC-GLUCOSE METER 108 mg/dL 70-[address] [facility] 6720 (BEAKER) (test code = JEANNIE [place] [facility] 1538) [address] RAD, CHEST, 1 VIEW, NON [id number] 09:10:00Reason for exam:->feverShould this be performed at the bedside?->YesFINAL REPORT AP chest, two images HISTORY: Fever. COMPARISON: 04/02/2019. IMPRESSION: Stable cardiac silhouette. Mild interstitial prominence, similar or slightly improved. No pneumothorax. Signed: Eliu Goodman MDReport Verified Date/Time: 04/07/2019 09:10:03 Reading Location: [facility] B1 C013X [facility] Consult Reading Room D [id number] 20:01:00 Test Item Value Reference Range Interpretation Comments CULTURE (BEAKER) (test No growth in 5 days code = 1095) BLOOD [id number] 20:01:00 Test Item Value Reference Range Interpretation Comments CULTURE (BEAKER) (test No growth in 5 days code = 1095) POCT-GLUCOSE [id number] 12:43:00 Test Item Value Reference Range Interpretation Comments POC-GLUCOSE METER 115 mg/dL 70-[address] [facility] 6720 (BEAKER) (test code = JEANN[place] 1538) [address] CBC W/PLT COUNT & AUTO [id number] 11:25:00 Test Item Value Reference Range Interpretation [...] 3438) Received comment: User comments: Slide comments:POCT-GLUCOSE [id number] 06:49:00 Test Item Value Reference Range Interpretation Comments POC-GLUCOSE METER 133 mg/dL 70-[address] [facility] 6720 (BEAKER) (test code = JEANNIE [place] 1538) [address] BASIC METABOLIC [id number] 06:35:00 Test Item Value Reference Range Interpretation [...] NOT APPLICABLE FOR DIALYSIS PATIEN TS. POCT-GLUCOSE [id number] 00:10:00 Test Item Value Reference Range Interpretation Comments POC-GLUCOSE METER 138 mg/dL 70-110 H TESTED AT [facility] 6720 (BEAKER) (test code = JEANNIE [place] [facility] 1538) [address] POCT-GLUCOSE [id number] 12:26:00 Test Item Value Reference Range Interpretation Comments POC-GLUCOSE METER 157 mg/dL 70-110 H TESTED AT [place] [address] (BEAKER) (test code = JEANNIE [place] [facility] 1538) [address] POCT-GLUCOSE [id number] 06:36:00 Test Item Value Reference Range Interpretation Comments POC-GLUCOSE METER 150 mg/dL 70-110 H TESTED AT [place] [address] (BEAKER) (test code = JEANNIE [place] [facility] 1538) [address] [id number] 05:28:00 Test Item Value Reference Range Interpretation Comments MAGNESIUM (BEAKER) 1.7 mg/dL 1.6-2.6 Specimen slightly (test code = 627) hemolyzed BASIC METABOLIC [id number] 05:28:00 Test Item Value Reference Range Interpretation [...] PATIEN TS. CBC W/PLT COUNT & AUTO [id number] 05:03:00 Test Item Value Reference Range Interpretation Comments WHITE BLOOD CELL COUNT (BEAKER) 14.0 K/ L 3.5-10.5 H (test code = 775) RED BLOOD CELL COUNT (BEAKER) 3.77 M/ L 3.93-5.22 L (test code = 761) HEMOGLOBIN (BEAKER) (test code = 12.4 GM/DL 11.2-15.7 410) HEMATOCRIT (BEAKER) (test code = 36.2 % 34.1-44.9 411) MEAN CORPUSCULAR VOLUME (BEAKER) 96.0 fL 79.4-94.8 H (test code = 753) MEAN CORPUSCULAR HEMOGLOBIN 32.9 pg 25.6-32.2 H (BEAKER) (test code = 751) MEAN CORPUSCULAR HEMOGLOBIN CONC 34.3 GM/DL 32.2-35.5 (BEAKER) (test code = 752) RED CELL DISTRIBUTION WIDTH 13.2 % 11.7-14.4 (BEAKER) (test code = 412) PLATELET COUNT ([facility]) (test 161 K/CU MM 150-450 code = 756) MEAN PLATELET VOLUME (AKER) 11.2 fL 9.4-12.3 (test code = 754) NUCLEATED RED BLOOD CELLS 0 /100 WBC 0-0 ([facility]) (test code = 413) POCT-GLUCOSE [id number] 00:02:00 Test Item Value Reference Range Interpretation Comments POC-GLUCOSE METER 178 mg/dL 70-110 H TESTED AT [place] [address] ([facility]) (test code = JEANNIE [place] 1538) [address] POCT-GLUCOSE [id number] 12:39:00 Test Item Value Reference Range Interpretation Comments POC-GLUCOSE METER 172 mg/dL 70-110 H TESTED AT [place] [address] ([facility]) (test code = JEANNIE [place] 1538) [address] VITAMIN B12 AND [id number] 11:48:00 Test Item Value Reference Range Interpretation Comments VITAMIN B12 ([facility]) (test code = > pg/mL 213-816 H 774) FOLATE ([facility]) (test code = 362) 18.3 ng/mL >=7.0 TSH/FREE T4 IF [id number] 11:11:00 Test Item Value Reference Range Interpretation Comments THYROID STIMULATING HORMONE 2.35 uIU/mL 0.35-4.94 ([facility]) (test code = 772) (CELLAVISION MANUAL DIFF)2019-04-04 [...] = 486) CBC W/PLT COUNT & AUTO [id number] 10:06:00 Test Item Value Reference Range Interpretation [...] (BEAKER) (test code = 413) BASIC METABOLIC [id number] 06:59:00 Test Item Value Reference Range Interpretation [...] NOT APPLICABLE FOR DIALYSIS PATIEN TS. POCT-GLUCOSE [id number] 06:41:00 Test Item Value Reference Range Interpretation Comments POC-GLUCOSE METER 140 mg/dL 70-[address] [facility] 67 [facility] (test code = JEANNIE [place] 1538) [address] POCT-GLUCOSE [id number] 00:07:00 Test Item Value Reference Range Interpretation Comments POC-GLUCOSE METER 145 mg/dL 70-[address] [facility] 6720 ([facility]) (test code = JEANNIE [place] 1538) [address] CBC W/PLT COUNT & AUTO [id number] 09:57:00 Test Item Value Reference Range Interpretation [...] = 3438) Received comment: User comments: Slide comments:[id number] 08:49:00 Test Item Value Reference Range Interpretation Comments PROCALCITONIN (BEAKER) (test code = < ng/mL <0.05 3036) SEPSIS RISK (ng/mL)Low: 0.05-0.50Intermediate: 0.51-2.00High: >=2.01TROPONIN [id number] 08:09:00 Test Item Value Reference Range Interpretation [...] acute neurological disease, and persistent tachyarrhythmia.BASIC METABOLIC [id number] 07:29:00 Test Item Value Reference Range Interpretation [...] TS. Specimen slightly ictericRAD, ABDOMEN/KUB, 1 VIEW [id number] 06:44:00Reason for exam:->fedding tube placementFINAL REPORT CLINICAL HISTORY: Feeding tube placement COMPARISON: None. FINDINGS: A single supine view of the abdomen is submitted. The tip of a feeding tube overlies expected position of the distal stomach/proximal duodenum. Visualized abdominal bowel gas pattern is nonspecific. There is levoscoliosis of the lumbar spine. Signed: Jelani Oseguera Verified Date/Time: 04/03/2019 06:44:31 Reading Location: [address] CT, BRAIN, WITHOUT [id number] 04:27:00FINAL REPORT CLINICAL HISTORY: Stroke follow-up COMPARISON: [...] hemorrhage. Attention on follow-up. Signed: Jelani Oseguera MDReport Verified Date/Time: 04/03/2019 04:27:01 Reading Location: [address] Reading Room HEMOGLOBIN [id number] 15:55:00 Test Item Value Reference Range Interpretation Comments HEMOGLOBIN A1C (BEAKER) (test code = 5.4 % 4.3-6.1 368) TROPONIN [id number] 15:40:00 Test Item Value Reference Range Interpretation [...] = 2795) RAD, CHEST, 1 VIEW, NON [id number] 14:28:00Reason for exam:->c/f aspirationShould this be performed [...] 04/02/2019 14:28:45 Reading Location: [facility] Radiology Reading Room BLOOD GAS, [id number] 07:35:00 Test Item Value Reference Range Interpretation [...] 21.0 % CBC W/PLT COUNT & AUTO [id number] 07:17:00 Test Item Value Reference Range Interpretation [...] = 3438) Received comment: User comments: Slide comments:TROPONIN [id number] 03:39:00 Test Item Value Reference Range Interpretation [...] acute neurological disease, and persistent tachyarrhythmia.FastingBASIC METABOLIC [id number] 03:31:00 Test Item Value Reference Range Interpretation [...] FOR DIALYSIS PATIEN TS. FastingSpecimen slightly ictericLIPID [id number] 03:31:00 Test Item Value Reference Range Interpretation [...] (test code = 2795) MR, BRAIN, WITHOUT [id number] 00:34:00Addendum BeginsREPORT STATUS:A There is also an acute right CAMILO territory infarct. Discussed with neurology resident at approximately 12:30 AM 04/02/2019. Signed: Karan Rod Verified Date/Time: 04/02/2019 00:34:28 Addendum EndsFINAL REPORT [...] resident at 1215a 04/02/19. Signed: Karan Rod Verified Date/Time: 04/02/2019 00:22:44 MR, MRA, BRAIN, WITHOUT [id number] 00:33:00FINAL REPORT MRA head without contrast. CLINICAL HISTORY: Stroke.. COMPARISON: None. TECHNIQUE: 3-D vrwe-bu-dbkygc MRA of the head was provided with [...] and in the right distal A2 and L5zmxixqri when compared to the left. There is no intracranial aneurysm. IMPRESSION: Limited exam.No proximal vessel occlusion.Decreased or absent flow in the right M2 and M3 branches and in the right distal A2 and A3 branches when compared to the left. Discussed with covering neurology resident at approximately 12:30 AM 04/02/2019. Signed: Karan Rod MDReport Verified Date/Time: 04/02/2019 00:33:50 POCT-GLUCOSE [id number] 21:10:00 Test Item Value Reference Range Interpretation Comments POC-GLUCOSE METER 158 mg/dL 70-[address] [facility] 6720 ([facility]) (test code = JEANNIE George [facility] 1538) [address] TROPONIN [id number] 17:20:00 Test Item Value Reference Range Interpretation Comments TROPONIN I ([facility]) (test code = 397) < ng/mL 0.00-0.03 [...] Reference Range Interpretation Comments B-TYPE NATRIURETIC PEPTIDE ([email or web address]) 558 pg/mL 0-100 H (test code = 700) LACTIC ACID, [id number] 17:17:00 Test Item Value Reference Range Interpretation Comments LACTATE BLOOD VENOUS 1.5 mmol/L 0.5-2.2 Specime n slightly (2) ([facility] (test hemolyzed code = 2872) BASIC METABOLIC [id number] 17:17:00 Test Item Value Reference Range Interpretation [...] 1092) DATA TO CALCULA TE ESTIMATED GFR. PT/[id number] 17:15:00 Test Item Value Reference Range Interpretation [...] INR is2.5-3.5 for patients wiht mechanical heart valves.[id number] 17:14:00 Test Item Value Reference Range Interpretation Comments AMMONIA (BEAKER) (test code = 348) 30 mol/L 18-72 [id number] 17:12:00 Test Item Value Reference Range Interpretation Comments MAGNESIUM (BEAKER) 2.1 mg/dL 1.6-2.6 Specimen slightly (test code = 627) hemolyzed HEPATIC FUNCTION [id number] 17:12:00 Test Item Value Reference Range Interpretation [...] Specimen slightly (test code = 347) hemolyzed [id number] 17:12:00 Test Item Value Reference Range Interpretation Comments LIPASE (BEAKER) (test code = 749) 19 U/L 8-78 RAD, CHEST, 1 VIEW, NON [id number] 17:09:00Reason for exam:->sobShould this be performed at [...] MDReport Verified Date/Time: 04/01/2019 17:09:33 [facility]T [facility] & AUTO [id number] 16:57:00 Test Item Value Reference Range Interpretation [...] (BEAKER) (test code = 2801) CT, BRAIN/STROKE [id number] 16:26:00Reason for exam:->unilateral weaknessWhat is the patient's [...] recommended for further characterization. Signed: Jorje Mack Verified Date/Time: 04/01/2019 16:26:43 Reading Location: [address] Neuro Reading Room
[2021-01-11 14:28] LABS: Absolute Lymphocytes (CBC) 0.6 K/uL (0.7-4.9); Basophils % 0.8 % (0-1.3); Hematocrit 34.1 % (36.0-45.0); MPV 8.4 fL (7.6-11.3); RBC Red Blood Cell Count 3.48 M/uL (3.86-4.86)
[2021-01-11 14:41] LABS: Protime INR 1.6
--- NOTE | 2021-01-11 14:41 | RAD REPORT ---
EXAM DESCRIPTION: RAD - Chest Single View - 01/11/2021 2:33 pm CLINICAL HISTORY: CONGESTION Chest pain. COMPARISON: Chest Single View dated 09/03/2020; Chest Pa And Lat (2 Views) dated 01/15/2018; Chest Sin gle View dated 12/27/2017; Chest Single View dated 06/27/2016 FINDINGS: Portable technique limits examination quality. The lungs are diffusely emphysematous but clear. The heart is mildly enlarged in size. Chronically di slocated left shoulder noted.
[2021-01-11 14:59] LABS: ALT/SGPT 17 U/L (12-78); AST/SGOT 20 U/L (15-37); Albumin 3.7 g/dL (3.4-5.0); Alkaline Phosphatase 100 U/L (45-117); BUN Blood Urea Nitrogen 15 mg/dL (7-18); Bicarbonate 24 mmol/L (21-32); Bilirubin Direct 0.2 mg/dL (0-0.2); Bilirubin Total 0.7 mg/dL (0.2-1.0); Glucose Level 106 mg/dL (74-106); Magnesium 2.1 mg/dL (1.8-2.4); NT PRO-BNP 4919 pg/mL (<450); Potassium 4.2 mmol/L (3.5-5.1); Protein, Total 7.9 g/dL (6.4-8.2); Sodium Level 135 mmol/L (136-145); Troponin (Emerg Dept Use Only) < 0.02 ng/mL (0.0-0.045)
[2021-01-11] MEDS ORDERED: NA CHLORIDE 0.9% 1,000 ML ONE (15:01)
[2021-01-11 15:40] LABS: Urine Blood Trace-intact (Negative); Urine Glucose Negative (Negative); Urine Protein Negative (Negative); Urine Specific Gravity 1.015 (1.005-1.030)
[2021-01-11 16:00] LABS: Urine Bacteria LOADED /HPF (<20); Urine RBC <5 /HPF (NONE SEEN)
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
--- NOTE | 2021-01-11 16:01 | EDPHYS ---
Physician Documentation [facility] Name: Danica Murdock Age: 89 yrs Sex: Female : 1930 Arrival Date: 01/11/2021 Time: 13:42 Bed 19 Private MD: ED Physician Vishal Cohen HPI: 01/11 15:14 This 89 yrs old Female presents to ER via EMS with complaints of cough. ma2 15:14 Onset: The symptoms/episode began/occurred gradually, 1 day(s) ago. Severity of ma2 symptoms: At their worst the symptoms were mild, in the emergency department the symptoms are unchanged. Associated signs and symptoms: Pertinent negatives: ear ache, nausea, sore throat. The patient has not experienced similar symptoms in the past, The patient has experienced a previous episode. 15:14 here with generalized weakness and sore throat, has chronic cough . ma2 Historical: - Allergies: 13:48 Beta-Blockers (Beta-Adrenergic Blocking Agts); ca1 13:48 Clonidine; ca1 13:48 Demerol; ca1 13:48 Latex, Natural Rubber; ca1 13:48 Levaquin; ca1 13:48 Plavix; ca1 - Home Meds: 14:02 Eliquis 2.5 mg oral tab 1 tab 2 times per day [Active]; atorvastatin 40 mg oral tab 1 ca1 tab once daily [Active]; gabapentin 300 mg oral cap 1 cap 3 times per day [Active]; metoprolol tartrate 12.5 mg Oral tab 1 tab once daily [Active]; furosemide 20 mg Oral tab 1 tab Monday and ONLY [Active]; aspirin 81 mg Oral chew 1 tab once daily [Active]; 18:12 omeprazole 40 mg Oral cpDR 1 cap once daily [Active]; tramadol 50 mg Oral tab 1 tab ca1 three times a day [Active]; - PMHx: 13:48 ADD/ADHD; Hypothyroidism; Irregular Hear Rate; stroke; heart attack; ca1 - Immunization history:: Client reports having NOT received the Covid vaccine. Pneumococcal vaccine is not up to date, Flu vaccine is not up to date. - Social history:: Smoking status: Patient denies any tobacco usage or history of. - Family history:: not pertinent. - Hospitalizations: : No recent hospitalization is reported. ROS: 15:14 Constitutional: Negative for fever, chills, and weight loss. ma2 15:14 All other systems are negative. Exam: 15:14 Constitutional: This is a well developed, well nourished patient who is awake, alert, ma2 and in no acute distress. Head/Face: Normocephalic, atraumatic. Eyes: Pupils equal round and reactive to light, extra-ocular motions intact. Lids and lashes normal. Conjunctiva and sclera are non-icteric and not injected. Cornea within normal limits. Periorbital areas with no swelling, redness, or edema. ENT: Nares patent. No nasal discharge, no septal abnormalities noted. Tympanic membranes are normal and external auditory canals are clear. Oropharynx with no redness, swelling, or masses, exudates, or evidence of obstruction, uvula midline. Mucous membranes moist. Neck: Trachea midline, no thyromegaly or masses palpated, and no cervical lymphadenopathy. Supple, full range of motion without nuchal rigidity, or vertebral point tenderness. No Meningismus. Chest/axilla: Normal chest wall appearance and motion. Nontender with no deformity. No lesions are appreciated. Cardiovascular: Regular rate and rhythm with a normal S1 and S2. No gallops, murmurs, or rubs. Normal PMI, no JVD. No pulse deficits. Respiratory: Lungs have equal breath sounds bilaterally, clear to auscultation and percussion. No rales, rhonchi or wheezes noted. No increased work of breathing, no retractions or nasal flaring. Abdomen/GI: Soft, non-tender, with normal bowel sounds. No distension or tympany. No guarding or rebound. No evidence of tenderness throughout. Skin: Warm, dry with normal turgor. Normal color with no rashes, no lesions, and no evidence of cellulitis. MS/ Extremity: Pulses equal, no cyanosis. Neurovascular intact. Full, normal range of motion. Neuro: Awake and alert, GCS 15, oriented to person, place, time, and situation. Cranial nerves II-XII grossly intact. Motor strength 5/5 in all extremities. Sensory grossly intact. Cerebellar exam normal. Normal gait. Vital Signs: 13:48 BP 131 / 70; Pulse 65; Resp 18 S; Temp 97.3(TE); Pulse Ox 95% on R/A; Weight 45.36 kg ca1 (R); Height 5 ft. 2 in. (157.48 cm) (R); Pain 0/10; 15:06 BP 114 / 78; Pulse 61; Resp 18 S; Pulse Ox 95% on R/A; ca1 16:00 BP 120 / 63; Pulse 62; Resp 16 S; Pulse Ox 95% on R/A; ca1 17:00 BP 129 / 57; Pulse 59; Resp 17 S; Pulse Ox 94% on R/A; ca1 18:02 BP 128 / 60; Pulse 61; Resp 17 S; Pulse Ox 94% on R/A; ca1 19:01 BP 161 / 74; Pulse 69; Resp 20 S; Pulse Ox 95% on R/A; ca1 13:48 Body Mass Index 18.29 (45.36 kg, 157.48 cm) ca1 MDM: 13:44 Patient medically screened. [facility] 15:14 Differential Diagnosis: Bronchitis Influenza Upper Respiratory Infection Sinusitis [facility] Pharyngitis Allergic Rhinitis. 16:00 Data reviewed: vital signs, nurses notes. Counseling: I had a detailed discussion with [facility] the patient and/or guardian regarding: the historical points, exam findings, and any diagnostic results supporting the discharge/admit diagnosis, the presence of at least one elevated blood pressure reading (>120/80) during this emergency department visit, the need for outpatient follow up. Response to treatment: the patient's symptoms have markedly improved after treatment. 01/11 13:46 Order name: Basic Metabolic Panel [facility] 01/11 13:46 Order name: CBC with Diff [facility] 01/11 13:46 Order name: LFT's [facility] 01/11 13:46 Order name: Magnesium [facility] 01/11 13:46 Order name: NT PRO-BNP [facility] 01/11 13:46 Order name: PT-INR [facility] 01/11 13:46 Order name: Troponin (emerg Dept Use Only) [facility] 01/11 14:00 Order name: Flu [facility] 01/11 14:00 Order name: Strep [facility] 01/11 14:00 Order name: COVID-19 : Document "Date of Symptom Onset" if Symptomatic. [facility] 01/11 14:40 Order name: CBC with Automated Diff EDMS 01/11 15:00 Order name: Basic Metabolic Panel; Complete Time: 15:12 EDMS 01/11 15:00 Order name: Liver (Hepatic) Function; Complete Time: 15:12 [facility] 01/11 15:00 Order name: Troponin (Emerg Dept Use Only); Complete Time: 15:12 [facility] 01/11 13:46 Order name: XRAY Chest (1 view) [facility] 01/11 14:41 Order name: RAD; Complete Time: 14:47 [facility] 01/11 15:00 Order name: NT PRO-BNP; Complete Time: 15:12 [facility] 01/11 15:00 Order name: Magnesium; Complete Time: 15:12 [facility] 01/11 15:01 Order name: CORONAVIRUS [facility] 01/11 15:31 Order name: Urine Microscopic Only ca1 01/11 15:33 Order name: Protime (+INR); Complete Time: 15:59 [facility] 01/11 15:40 Order name: Urine Dipstick-Ancillary; Complete Time: 15:59 [facility] 01/11 15:58 Order name: Influenza Screen (A ; Complete Time: 15:59 [facility] 01/11 15:58 Order name: Group A Streptococcus Rapid Sc; Complete Time: 15:59 [facility] 01/11 16:00 Order name: SARS-COV-2 RT PCR; Complete Time: 16:00 [facility] 01/11 16:01 Order name: Urine Microscopic Only [facility] 01/11 17:59 Order name: Throat Culture [facility] 01/11 17:59 Order name: Urine Culture [facility] 01/11 19:45 Order name: CBC Smear Scan [facility] 01/11 13:46 Order name: EKG; Complete Time: 13:47 [facility] 01/11 13:46 Order name: Cardiac monitoring; Complete Time: 14:30 [facility] 01/11 13:46 Order name: EKG - Nurse/Tech; Complete Time: 14:30 [facility] 01/11 13:46 Order name: IV Saline Lock; Complete Time: 14:30 [facility] 01/11 13:46 Order name: Labs collected and sent; Complete Time: 14:30 [facility] 01/11 13:46 Order name: O2 Per Protocol; Complete Time: 14:30 [facility] 01/11 13:46 Order name: O2 Sat Monitoring; Complete Time: 14:30 [facility] 01/11 13:46 Order name: Urine Dipstick-Ancillary (obtain specimen); Complete Time: 15:34 [facility] 01/11 14:00 Order name: Droplet/Contact Precautions; Complete Time: 14:29 butch2 Administered Medications: 14:35 Drug: NS 0.9% 1000 ml Route: IV; Rate: 1 bolus; Site: right forearm; ca1 16:30 Follow up: Urine output 300 ml; Response: No adverse reaction; IV Status: Completed ca1 infusion; IV Intake: 1000ml 16:20 Drug: Rocephin (cefTRIAXone) 1 grams Route: IV; Rate: calculated rate; Site: right ca1 forearm; 17:00 Follow up: Response: No adverse reaction; IV Status: Completed infusion ca1 19:08 Drug: traMADol 50 mg {Note: given through PEG tube, .} Route: PO; ca1 20:04 Follow up: Response: No adverse reaction 8 19:08 Drug: Gabapentin 300 mg Route: PO; ca1 20:04 Follow up: Response: No adverse reaction [email or web address] Disposition: 01/11/21 16:01 Discharged to Home. Impression: Cystitis, unspecified without hematuria. - Condition is Stable. - Discharge Instructions: Urinary Tract Infection, Adult, [id number]. - Prescriptions for Bactrim DS 800- 160 mg Oral Tablet - take 1 tablet by ORAL route every 12 hours for 5 days; 10 tablet. - Medication Reconciliation Form, Thank You Letter, Antibiotic Education, Prescription Opioid Use, SBAR form form. - Follow up: Private Physician; When: Tomorrow; Reason: If symptoms return, Continuance of care. Signatures: Dispatcher [employer] EDMS Vishal Cohen MD MD co2 Cinthia Jasso RN RN ca1 Arnold Bryant RN RN jm8 Corrections: (The following items were deleted from the chart) 19:53 16:01 01/11/2021 16:01 Discharged to Home. Impression: Cystitis, unspecified without jm8 hematuria. Condition is Stable. Prescriptions for Zithromax Z-Juan 250 mg Oral Tablet - take 1 tablet by ORAL route as directed for 5 days Day 1 - take two (2) tablets one time. Day 2, 3, 4 , 5 take one (1) tablet once daily.; 6 tablet. and Forms are Medication Reconciliation Form, Thank You Letter, Antibiotic Education, Prescription Opioid Use. Follow up: Private Physician; When: Tomorrow; Reason: If symptoms return, Continuance of care. ma2
[2021-01-11] MEDS ORDERED: CEFTRIAXONE/SWI 1gm 1 GM/10 ML SYR ONE (16:36)
[2021-01-11] MEDS ORDERED: GABAPENTIN 300 MG CAP ONE (19:06)
[2021-01-11] MEDS ORDERED: TRAMADOL HCL 50 MG TAB ONE (19:07)
[2021-01-11 19:55] LABS: Anisocytosis 1+; Blood Morphology Comment NOTED (NOT SEEN); Platelet Estimate ADEQ; Poikilocytosis 2+; White Blood Cell Scan OK (OK)
[2021-01-11 20:25] VITALS: TEMP 97.3
[2021-01-11 20:34] VITALS: BP 161/74; O2SAT 95
--- NOTE | 2021-01-12 07:51 | EKG ---
Test Date: 2021-01-11 Test Time: 14:30:18 Business Services Manager: NIELS MEASUREMENT RESULTS: Intervals: Rate: 62 UT: QRSD: 124 QT: 464 QTc: 470 [place]: P: UT: QRS: 43 T: -47 INTERPRETIVE STATEMENTS: Atrial fibrillation Nonspecific intraventricular conduction delay ST & T wave abnormality, consider inferolateral ischemia Abnormal ECG Compared to ECG 12/27/2017 07:34:48 Intraventricular conduction delay now present ST (T wave) deviation still present Possible ischemia still present Electronically Signed On 01-12-21 07:49:09 CDT by Oleg Gallo
== END 2021-01-11 19:53 | disposition home or self-care (01) ==
LOC: ER 13:31
DX: N30.90 Cystitis, unspecified without hematuria (principal); Z20.822 Contact with and (suspected) exposure to COVID-19; F90.9 Attention-deficit hyperactivity disorder, unspecified type; E03.9 Hypothyroidism, unspecified; I25.2 Old myocardial infarction; Z86.73 Personal history of transient ischemic attack (TIA), and cerebral infarction without residual deficits; Z79.01 Long term (current) use of anticoagulants; R05 Cough
CPT/HCPCS: 93005; 87070; 87088; 85025; 87086; 80048; 36415; 83735; 85610; 80076; 87081; 84484; 83880; 87804 ×2; 71045; U0003; J0696; J7030; 81003; 81015; 87077; 87186; 96361; 96365; 99284